=== PATIENT | female | born 1930 | race Caucasian/White ===

== ENCOUNTER 2020-02-02 08:30 | Inpatient (IN) ==
[2020-02-02] MEDS ORDERED: SODIUM CHLORIDE 0.9% 1000ML 1,000 ML IV ONE (08:36)
[2020-02-02] MEDS ORDERED: RAPID SEQUENCE INDUCTION BAG ONE (08:40)
[2020-02-02] MEDS ORDERED: STAT IV Infusion **Titration per Protocol STA ×2 (08:46→23:30)
[2020-02-02] MEDS: fentaNYL DRIP 1,250 MCG/250 ML BAG IV SCH (09:01)
[2020-02-02 09:05] LABS: Hematocrit (blood only) 38.2 % (37-47); Hemoglobin 12.6 g/dL (12.0-16.0); Mean Corpuscular Hemoglobin 32.5 pg (25-34); Mean Corpuscular Volume 98.5 fL (80-100); RDW Coefficient of Variation 15.6 % (11.5-14.5); RDW Standard Deviation 55.4 fL (36.4-46.3); Red Blood Count 3.88 M/uL (4.2-5.4); White Blood Count 40.25 K/uL (4.8-10.8)
--- NOTE | 2020-02-02 09:17 | XRay Report ---
XR chest 1V portable CLINICAL HISTORY: Altered mental status. COMPARISON STUDY: No previous studies for comparison. FINDINGS: The tip of the endotracheal tube is within the right mainstem bronchus. The tube could be w ithdrawn 4 cm. Visualized portions of the stomach are distended. There is mild elevation of the left hemidiaphragm. Patient is rotated. There is moderate enlargement of the cardiac silhouette. Mild left basilar and right apical opacity is present. There is no evidence for overt pulmonary edema. No pneu mothorax is identified. Old left-sided rib fractures are noted. IMPRESSION: 1. Tip of endotracheal tube within the right mainstem bronchus. The tube could be withdrawn 4 cm. 2. Low lung volumes. Left basilar and right apical opacity which may be infectious. Radiographic foll ow up is recommended. 3. Moderate enlargement of the cardiac silhouette. No evidence for pulmonary edema. 4. Distended stomach. ACT 112: Negative or not required by law. Electronically signed by: Nicolas Gonzalez M.D. 02/02/2020 9:15 AM
[2020-02-02 09:19] LABS: Albumin Level 2.4 gm/dl (3.4-5.0); Bilirubin Direct 0.3 mg/dl (0-0.2); Calcium 8.6 mg/dl (8.5-10.1); Creatinine Clr Calc Pharmacy 12.2 ml/min; Est GFR (African American) 15.6; Est GFR (Non-African American) 13.5; Magnesium 3.1 mg/dl (1.8-2.4); Potassium 3.8 mmol/L (3.5-5.1)
--- NOTE | 2020-02-02 09:21 | CT Scan Report ---
CT head/brain wo con CLINICAL HISTORY: 89 years-old Female presenting with ams on eliquis. TECHNIQUE: Multidetector CT imaging of the head was performed without the use of intravenous contrast . IV contrast: None. One or more dose lowering techniques were used consistent with the principles of ALARA (as low as reasonably achievable), including automatic exposure control, mA or kV adjustment t o individual patient size, and/or use of iterative reconstruction. COMPARISON: None. CT DOSE (mGy.cm): The estimated cumulative dose is 1166.49. FINDINGS: Attendant Arcade topogram: Endotracheal tube terminates in the midthoracic trachea. Lung volumes with interstiti al prominence. Internal fixation of the left humerus. Proportional ventricular and sulcal prominence, likely age-related parenchymal volume loss. No hemorr wilmar. Periventricular and subcortical white matter hypoattenuation, nonspecific but likely indicative of chronic small vessel ischemic change. No acute territorial infarct. No mass effect or midline lanette ft. No extra-axial fluid collection. Paranasal sinuses and mastoid air cells clear. Calvarium intact. IMPRESSION: 1. Chronic small vessel ischemic change. No acute intracranial abnormality. ACT 112: Negative or not required by law. Electronically signed by: Blair Mike M.D. 02/02/2020 9:20 AM
[2020-02-02 09:22] LABS: Bilirubin,Total 0.6 mg/dl (0.2-1); Total Protein 6.8 gm/dl (6.4-8.2); Troponin I 0.033 ng/ml (0-0.045)
[2020-02-02 09:27] LABS: INR 1.3 (0.9-1.1); Partial Thromboplastin Ratio 1.3; Partial Thromboplastin Time 35.3 Seconds (21.0-31.0); Prothrombin Time 13.2 Seconds (9.0-12.0)
[2020-02-02 09:28] LABS: Mean Platelet Volume 10.6 fL (7.4-10.4); Platelet Count 150 K/uL (130-400)
--- NOTE | 2020-02-02 09:28 | CT Scan Report ---
CT OF THE CERVICAL SPINE WITHOUT CONTRAST CLINICAL HISTORY: Altered mental status. COMPARISON STUDY: No previous studies for comparison. TECHNIQUE: Helical axial images of the cervical spine were obtained without IV contrast. Sagittal a nd coronal reconstructions were viewed. Automated exposure control was utilized for the study. A do se lowering technique was utilized adhering to the principles of ALARA. FINDINGS: Endotracheal tube is in place. A small amount of fluid within the bilateral mastoid air ludivina ls is noted. Subpleural groundglass opacity and reticulation is noted within the lung apices. This fa vors interstitial lung disease. There may be mild superimposed pulmonary edema. Kyphotic positioning is noted. Is no acute cervical spine fracture. Facet joints are intact. There is severe multilevel fa cet arthrosis. There is moderate multilevel disc space narrowing and osteophytosis. There is no preve rtebral edema. Craniocervical junction is intact. There is an old mild compression fracture of the banegas perior endplate of T2. IMPRESSION: 1. No acute fracture or subluxation within the cervical spine. 2. Old mild T2 compression fracture. 3. Interstitial thickening within the lung apices which favors interstitial lung disease. There may b e mild superimposed pulmonary edema. 4. Severe multilevel facet arthrosis. 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 ACT 112: Negative or not required by law. Electronically signed by: Nicolas Gonzalez M.D. 02/02/2020 9:27 AM
[2020-02-02 09:29] LABS: Basophils # (auto) 0.04 K/uL (0-0.2); Basophils % (auto) 0.1 %; Eosinophils # (auto) 0.01 K/uL (0-0.5); Immature Granulocytes # (auto) 0.86 K/uL (0.00-0.02); Immature Granulocytes % (auto) 2.1 %; Lymphocytes # (auto) 1.81 K/uL (1.2-3.4); Lymphocytes % (auto) 4.5 %; Monocytes # (auto) 2.58 K/uL (0.11-0.59); Monocytes % (auto) 6.4 %; Neutrophils # (auto) 34.95 K/uL (1.4-6.5); Neutrophils % (auto) 86.9 %; Platelet Estimate Normal (Normal); RBC Morphology Unremarkable
[2020-02-02 09:33] LABS: Base Excess VBG -3.7 mEq/L; HCO3 VBG 24 mmol/L; Oxygen Saturation VBG < 60.0 %; PCO2 VBG 58 mmHg (38-50); PO2 VBG 40 mmHg; pH VBG 7.24 (7.36-7.41)
[2020-02-02] MEDS ORDERED: PIPERACILLIN/TAZOBACTAM 4.5 GM/120 ML BAG IV ONE (09:37)
[2020-02-02] MEDS ORDERED: PIPERACILL/TAZOBAC CONSULT ACTIVE PRN (09:37)
[2020-02-02] MEDS ORDERED: SODIUM CHLORIDE 0.9% 1000ML 1,000 ML IV SCH ×2 (09:45→11:52)
--- NOTE | 2020-02-02 09:47 | Emergency Department Note ---
History of Present Illness General Chief complaint: Unresponsive Stated complaint: Unresponsive Time Seen by Provider: 02/02/20 08:34 History of Present Illness Provider complaint: Altered mental status Onset (ago): hour(s) 1 89-year-old female presents emergency department with altered mental status. Patient is unable to give history at this time. Per EMS, the patient was sitting in her chair last night when the family noticed that she was biting down on her tongue. Patient is on Eliquis and there is significant amount of bleeding coming for the patient's tongue. The bleeding eventually stopped and they let the patient sleep in her chair as she usually does overnight. In the morning the family tried to wake up the patient and she was unresponsive. They called 911. 911 paramedics arrived and the patient was hypotensive, altered mental status, and hypoxic at 86% on room air. Home Medications Home Medications Medication Instructions Recorded Confirmed Type Stool Softener 4 cap PO QPM 02/02/20 02/02/20 History amiodarone [Pacerone] 200 mg PO QAM 02/02/20 02/02/20 History apixaban [Eliquis] 5 mg PO BID 02/02/20 02/02/20 History aspirin [Aspirin Low Dose] 81 mg PO QAM 02/02/20 02/02/20 History gabapentin 300 mg PO TID 02/02/20 02/02/20 History hydrochlorothiazide 25 mg PO QAM 02/02/20 02/02/20 History qluzdaop-pqq-OB-lycopen-lutein 1 tab PO QAM 02/02/20 02/02/20 History [Centrum Silver] Allergies Allergy/AdvReac Type Severity Reaction Status Date / Time No Known Allergies Allergy Unverified 02/02/20 09:57 Past Med/Surg History Medical History Acute encephalopathy Acute hypoxemic respiratory failure Atrial flutter CHF (congestive heart failure) Complicated UTI (urinary tract infection) Diarrhea Lactic acidosis Leukocytosis S/P admission to ICU (intensive care unit) Social History Communication Ability: Unable marital status: / Feels Safe at Home: Yes Smoking Status: Never smoker Review of Systems Unobtainable due to cognitive status Physical Exam Vital Signs Vital Signs - 24 hr 02/02/20 08:39 02/02/20 09:04 02/02/20 09:25 Temperature 36.2 C L Temperature Source Rectal Pulse Rate 168 H 88 Pulse Rate [Forehead] 94 H Respiratory Rate 20 25 H 14 Blood Pressure 84/59 L Blood Pressure [Left Arm] 94/53 L Blood Pressure Mean 67 Blood Pressure Mean [Left Arm] 66 Pulse Oximetry 100 100 98 Oxygen Delivery Method Non-rebreather Mechanical Vent Oxygen Flow Rate 15 Fraction of Inspired Oxygen 60 SaO2/FiO2 Ratio Sepsis Recent Fever Within 48 Hours No Sepsis New/Unexplained Change in Mental Status No Sepsis Action Taken by Nursing No Action Required End Tidal CO2 (18-54mmHg) 02/02/20 09:37 Temperature Temperature Source Pulse Rate Pulse Rate [Forehead] 85 Respiratory Rate 14 Blood Pressure Blood Pressure [Left Arm] 82/42 L Blood Pressure Mean Blood Pressure Mean [Left Arm] 55 Pulse Oximetry 99 Oxygen Delivery Method Mechanical Vent Oxygen Flow Rate Fraction of Inspired Oxygen 60 SaO2/FiO2 Ratio 165 Sepsis Recent Fever Within 48 Hours Sepsis New/Unexplained Change in Mental Status Sepsis Action Taken by Nursing End Tidal CO2 (18-54mmHg) 35 Physical Exam General: Severely distressed. Severely kyphotic. Mouth/Throat: Lacerated left tongue with dried blood and some mild oozing. EYES: Conjunctivae and EOM are normal. Pupils are equal, round, and reactive to light. Right eye exhibits no discharge. Left eye exhibits no discharge. No scleral icterus. CV: Normal rate, irregular rhythm, normal heart sounds and intact distal pulses. There is no peripheral edema. Palpable radial pulses bue. PULM/CHEST: Rhonchi bilaterally. -Chest Wall: She exhibits no tenderness. ABD: The abdomen is soft. NEURO: GCS eye subscore is 2. GCS verbal subscore is 1. GCS motor subscore is 1. Cerebellar tests wnl. Procedures Intubation Time out performed: Yes sedative: Etomidate Mg Given: 20 paralytic: Rocuronium Mg Given: 70 Laryngoscope: other ([place] scope) ET Tube Size: 7 ET Tube Uncuffed: Yes Tube Secured Location: teeth Tube Placement Confirmation: visualized tube passing through cords, equal breath sounds bilaterally (Initially there were right-sided breath sounds but no left- sided breath sounds. The ET tube was pulled back approximately 1 cm and breath sounds were heard bilaterally.), no breath sounds over epigastrium and confirmation by capnometry Patient Tolerated Procedure: well and no complications Intubation Complications: difficult intubation Additional Comments: Patient was extremely difficult intubation due to her severe kyphosis, poor dentition, tongue laceration, and bleeding in the airway. Cords were visualized with glide scope immediately however it took several attempts to place to place the ET tube through the cords. ET tube was placed successfully after the patient was re-bagged with Ambu bag. Post intubation chest x-ray showed that the ET tube was in the right mainstem bronchus and the ET tube was retracted. Course Course 0840: The patient was evaluated in room A1. A complete history and physical exam was performed. On arrival to the emergency department, the patient has extremely low GCS score. She does have what appears to be a severe laceration of her tongue from a tongue bite. There is high concern that the patient might of had a seizure. Given that the patient is on Eliquis there was also high concern for ICH. Family was brought to bedside. They report that there is no history of fall. They state that the patient always sleeps in a chair. Bashir mcgowan at bedside who is a family member in the area with her states that the patient does not have a DNR status and she does not have any end-of-life goals to her knowledge. Given this, both I and the daughter assumed that the patient is a full code. Given her extremely low GCS score, the patient will be intubated for airway protection. Patient was intubated. Patient was given fluid bolus and after intubation her map was greater than 65 and then taken to CAT scan to rule out ICH. 0947: CT of the head viewed by me shows no ICH. Daughter now states that the patient traveled here from [place] in early December. 1001: Patient's blood pressure improved transiently with IV fluids but she anju me hypotensive again. Repeat normal saline bolus ordered. Labs show leukocytosis of 40.25 and lactic acid of 4.9. Again given the patient's history of tongue bite and altered mental status, seizure is very high on the differential. The lactic acidemia and leukocytosis could be due to seizure. P atient's creatinine is 2.95. The patient's urine also appears extremely bloody. The leukocytosis and lactic acidemia could also be due to infection instead of seizure. Discussed with hospitalist team Fay duran PA-C she agrees to admission. Patient will be given Zosyn in the emergency department. Discussed with Dr. Trejo ICU who accepts the patient and states to start the patient on fosphenytoin given possible seizure diagnosis. Prolactin is also mildly elevated again contributing to possible seizure. Intensvist also asked that the patient be tested for rapid in-house COVID. Hospitalist team was made aware of this. Orders were placed by me. Administered Medications Fentanyl Citrate (Fentanyl Drip) 1,250 mcg in 250 mls @ 5 mls/hr IV .Q24H TEODORO; Protocol Stop: 02/16/20 08:59 Last Admin: 02/02/20 09:01 Dose: 25 mcg/hr, 5 mls/hr Documented by: [id number] Cosigned by: [id number] Sodium Chloride (Nss 1000ml) 1,000 mls @ 125 mls/hr IV .Q8H TEODORO Stop: 03/03/20 09:44 Last Admin: 02/02/20 09:46 Dose: 125 mls/hr Documented by: [id number] Vancomycin HCl 1,500 mg/ (Sodium Chloride) 530 mls @ 200 mls/hr IV NOW ONE Stop: 02/02/20 14:38 Last Admin: 02/02/20 12:17 Dose: 200 mls/hr Documented by: [id number] Norepinephrine Bitartrate 4 mg (/ Dextrose) 254 mls @ 13.545 mls/hr IV .[id number] STA; Protocol Stop: 02/03/20 06:24 Last Admin: 02/02/20 11:50 Dose: 0.2 mcg/kg/min, 54.2 mls/hr Documented by: [id number] Cosigned by: [id number] Discontinued Medications Sodium Chloride (Nss 1000ml) 1,000 mls @ 999 mls/hr IV .Q1H1M ONE Stop: 02/02/20 09:36 Last Infusion: 02/02/20 09:45 Dose: 0 mls/hr Documented by: [id number] Admin: 02/02/20 08:30 Dose: 999 mls/hr Documented by: [id number] Piperacillin Sod/Tazobactam Sod (Zosyn) 4.5 gm in 120 mls @ 240 mls/hr IV NOW ONE Stop: 02/02/20 10:06 Last Admin: 02/02/20 09:53 Dose: 30 mls/hr Documented by: [id number] Fosphenytoin Sodium 1,000 mgpe (/ Sodium Chloride) 70 mls @ 420 mls/hr IV NOW STA Stop: 02/02/20 10:07 Last Admin: 02/02/20 10:54 Dose: 25 mls/hr Documented by: [id number] Sodium Chloride (Nss 1000ml) 1,000 mls @ 125 mls/hr IV .Q8H TEODORO Stop: 03/03/20 11:51 Last Admin: 02/02/20 13:05 Dose: Not Given Documented by: Doxycycline Hyclate 100 mg/ (Dextrose) 110 mls @ 55 mls/hr IV Q12H TEODORO Stop: 02/09/20 11:59 Last Admin: 02/02/20 12:17 Dose: Not Given Documented by: [id number] Miscellaneous () Confirm Administered Dose 1 ea .ROUTE .STK-MED ONE Stop: 02/02/20 08:41 Last Admin: 02/02/20 09:53 Dose: 1 ea Documented by: [id number] Sodium Bicarbonate (Sodium Bicarbonate 8.4%) Confirm Administered Dose 100 meq .ROUTE .STK-MED ONE Stop: 02/02/20 11:42 Last Admin: 02/02/20 12:13 Dose: 100 meq Documented by: [id number] Critical Care Time Critical Care Time: Yes Total Critical Care Time: 90 I have personally spent greater than 90 minutes of critical care time in the direct management of this patient. This includes bedside care, interpretation of diagnostic studies, and testing, discussion with consultants, patient, and family members, and other required patient management activities. This 90 minutes is in excess of all separately billable procedures. Medical Decision Making Laboratory Data Result diagrams: 02/02/20 08:51 02/02/20 08:51 Lab Results 02/02/20 02/02/20 02/02/20 Range/Units 08:51 08:51 08:51 WBC 40.25 H* (4.8-10.8) K/uL RBC 3.88 L (4.2-5.4) M/uL Hgb 12.6 (12.0-16.0) g/dL Hct 38.2 (37-47) % MCV 98.5 (80-100) fL MCH 32.5 (25-34) pg MCHC 33.0 (32-36) g/dL RDW Std Deviation 55.4 H (36.4-46.3) fL RDW Coeff of Karyna 15.6 H (11.5-14.5) % Plt Count 150 (130-400) K/uL MPV 10.6 H (7.4-10.4) fL Immature Gran % (Auto) 2.1 % Neut % (Auto) 86.9 % Lymph % (Auto) 4.5 % [place] % (Auto) 6.4 % Eos % (Auto) 0.0 % Baso % (Auto) 0.1 % Immature Gran # (Auto) 0.86 H (0.00-0.02) K/uL Neut # (Auto) 34.95 H (1.4-6.5) K/uL Lymph # (Auto) 1.81 (1.2-3.4) K/uL [place] # (Auto) 2.58 H (0.11-0.59) K/uL Eos # (Auto) 0.01 (0-0.5) K/uL Baso # (Auto) 0.04 (0-0.2) K/uL Platelet Estimate Normal (Normal) RBC Morphology Unremarkable PT (9.0-12.0) Seconds INR (0.9-1.1) APTT (21.0-31.0) Seconds PTT Ratio VBG pH VBG pCO2 VBG pO2 VBG HCO3 VBG O2 Saturation VBG Base Excess Barometric Pressure Sodium 138 (136-145) mmol/L Potassium 3.8 (3.5-5.1) mmol/L Chloride 103 (98-107) mmol/L Carbon Dioxide 27 (21-32) mmol/L Anion Gap 8.0 (3-11) BUN 44 H (7-18) mg/dl Creatinine 2.95 H (0.6-1.2) mg/dl Est Cr Clr Drug Dosing 12.2 ml/min Est GFR ( Amer) 15.6 Est GFR (Non-Af Amer) 13.5 BUN/Creatinine Ratio 15.0 (10-20) Glucose 112 H (70-99) mg/dl Lactate (0.4-2.0) mmol/L Calcium 8.6 (8.5-10.1) mg/dl Magnesium 3.1 H (1.8-2.4) mg/dl Total Bilirubin 0.6 (0.2-1) mg/dl Direct Bilirubin 0.3 H (0-0.2) mg/dl AST 43 H (15-37) U/L ALT 30 (12-78) U/L Alkaline Phosphatase 137 H (45-117) U/L Ammonia (11-32) umol/L Total Creatine Kinase 360 H (26-192) U/L Troponin I 0.033 (0-0.045) ng/ml NT-Pro-B Natriuret Pep 3585 H (0-1800) pg/ml Total Protein 6.8 (6.4-8.2) gm/dl Albumin 2.4 L (3.4-5.0) gm/dl Lipase 19 L (73-393) U/L Procalcitonin (0-0.5) ng/ml Prolactin ng/ml Urine Color Urine Appearance (Clear) Urine pH (4.5-7.5) Ur Specific [place] (1.000-1.030) Urine Protein (Negative) Urine Glucose (UA) (Negative) Urine Ketones (Negative) Urine Blood (Negative) Urine Nitrite (Negative) Urine Bilirubin (Negative) Urine Urobilinogen (Negative) Ur Leukocyte Esterase (Negative) Urine WBC (Auto) (0-5) /hpf Urine RBC (Auto) (0-4) /hpf U Hyaline Cast (Auto) (0-5) /lpf U Epithel Cells (Auto) (0-5) /lpf Urine Bacteria (Auto) (Negative) Urine RBC (0-4) /hpf Urine WBC (0-5) /hpf Ur Epithelial Cells (0-5) /lpf Urine Bacteria (Negative) Blood Type A Positive Antibody Screen NEGATIVE 02/02/20 02/02/20 02/02/20 Range/Units 08:51 08:51 08:51 WBC (4.8-10.8) K/uL RBC (4.2-5.4) M/uL Hgb (12.0-16.0) g/dL Hct (37-47) % MCV (80-100) fL MCH (25-34) pg MCHC (32-36) g/dL RDW Std Deviation (36.4-46.3) fL RDW Coeff of Karyna (11.5-14.5) % Plt Count (130-400) K/uL MPV (7.4-10.4) fL Immature Gran % (Auto) % Neut % (Auto) % Lymph % (Auto) % [place] % (Auto) % Eos % (Auto) % Baso % (Auto) % Immature Gran # (Auto) (0.00-0.02) K/uL Neut # (Auto) (1.4-6.5) K/uL Lymph # (Auto) (1.2-3.4) K/uL [place] # (Auto) (0.11-0.59) K/uL Eos # (Auto) (0-0.5) K/uL Baso # (Auto) (0-0.2) K/uL Platelet Estimate (Normal) RBC Morphology PT 13.2 H (9.0-12.0) Seconds INR 1.3 H (0.9-1.1) APTT 35.3 H (21.0-31.0) Seconds PTT Ratio 1.3 VBG pH Cancelled VBG pCO2 Cancelled VBG pO2 Cancelled VBG HCO3 Cancelled VBG O2 Saturation Cancelled VBG Base Excess Cancelled Barometric Pressure Cancelled Sodium (136-145) mmol/L Potassium (3.5-5.1) mmol/L Chloride (98-107) mmol/L Carbon Dioxide (21-32) mmol/L Anion Gap (3-11) BUN (7-18) mg/dl Creatinine (0.6-1.2) mg/dl Est Cr Clr Drug Dosing ml/min Est GFR ( Amer) Est GFR (Non-Af Amer) BUN/Creatinine Ratio (10-20) Glucose (70-99) mg/dl Lactate (0.4-2.0) mmol/L Calcium (8.5-10.1) mg/dl Magnesium (1.8-2.4) mg/dl Total Bilirubin (0.2-1) mg/dl Direct Bilirubin (0-0.2) mg/dl AST (15-37) U/L ALT (12-78) U/L Alkaline Phosphatase (45-117) U/L Ammonia 30.3 (11-32) umol/L Total Creatine Kinase (26-192) U/L Troponin I (0-0.045) ng/ml NT-Pro-B Natriuret Pep (0-1800) pg/ml Total Protein (6.4-8.2) gm/dl Albumin (3.4-5.0) gm/dl Lipase (73-393) U/L Procalcitonin (0-0.5) ng/ml Prolactin ng/ml Urine Color Urine Appearance (Clear) Urine pH (4.5-7.5) Ur Specific [place] (1.000-1.030) Urine Protein (Negative) Urine Glucose (UA) (Negative) Urine Ketones (Negative) Urine Blood (Negative) Urine Nitrite (Negative) Urine Bilirubin (Negative) Urine Urobilinogen (Negative) Ur Leukocyte Esterase (Negative) Urine WBC (Auto) (0-5) /hpf Urine RBC (Auto) (0-4) /hpf U Hyaline Cast (Auto) (0-5) /lpf U Epithel Cells (Auto) (0-5) /lpf Urine Bacteria (Auto) (Negative) Urine RBC (0-4) /hpf Urine WBC (0-5) /hpf Ur Epithelial Cells (0-5) /lpf Urine Bacteria (Negative) Blood Type Antibody Screen 02/02/20 02/02/20 02/02/20 Range/Units 08:51 08:51 08:51 WBC (4.8-10.8) K/uL RBC (4.2-5.4) M/uL Hgb (12.0-16.0) g/dL Hct (37-47) % MCV (80-100) fL MCH (25-34) pg MCHC (32-36) g/dL RDW Std Deviation (36.4-46.3) fL RDW Coeff of Karyna (11.5-14.5) % Plt Count (130-400) K/uL MPV (7.4-10.4) fL Immature Gran % (Auto) % Neut % (Auto) % Lymph % (Auto) % [place] % (Auto) % Eos % (Auto) % Baso % (Auto) % Immature Gran # (Auto) (0.00-0.02) K/uL Neut # (Auto) (1.4-6.5) K/uL Lymph # (Auto) (1.2-3.4) K/uL [place] # (Auto) (0.11-0.59) K/uL Eos # (Auto) (0-0.5) K/uL Baso # (Auto) (0-0.2) K/uL Platelet Estimate (Normal) RBC Morphology PT (9.0-12.0) Seconds INR (0.9-1.1) APTT (21.0-31.0) Seconds PTT Ratio VBG pH VBG pCO2 VBG pO2 VBG HCO3 VBG O2 Saturation VBG Base Excess Barometric Pressure Sodium (136-145) mmol/L Potassium (3.5-5.1) mmol/L Chloride (98-107) mmol/L Carbon Dioxide (21-32) mmol/L Anion Gap (3-11) BUN (7-18) mg/dl Creatinine (0.6-1.2) mg/dl Est Cr Clr Drug Dosing ml/min Est GFR ( Amer) Est GFR (Non-Af Amer) BUN/Creatinine Ratio (10-20) Glucose (70-99) mg/dl Lactate 4.9 H* (0.4-2.0) mmol/L Calcium (8.5-10.1) mg/dl Magnesium (1.8-2.4) mg/dl Total Bilirubin (0.2-1) mg/dl Direct Bilirubin (0-0.2) mg/dl AST (15-37) U/L ALT (12-78) U/L Alkaline Phosphatase (45-117) U/L Ammonia (11-32) umol/L Total Creatine Kinase (26-192) U/L Troponin I (0-0.045) ng/ml NT-Pro-B Natriuret Pep (0-1800) pg/ml Total Protein (6.4-8.2) gm/dl Albumin (3.4-5.0) gm/dl Lipase (73-393) U/L Procalcitonin > 200.00 H (0-0.5) ng/ml Prolactin 21.91 ng/ml Urine Color Urine Appearance (Clear) Urine pH (4.5-7.5) Ur Specific [place] (1.000-1.030) Urine Protein (Negative) Urine Glucose (UA) (Negative) Urine Ketones (Negative) Urine Blood (Negative) Urine Nitrite (Negative) Urine Bilirubin (Negative) Urine Urobilinogen (Negative) Ur Leukocyte Esterase (Negative) Urine WBC (Auto) (0-5) /hpf Urine RBC (Auto) (0-4) /hpf U Hyaline Cast (Auto) (0-5) /lpf U Epithel Cells (Auto) (0-5) /lpf Urine Bacteria (Auto) (Negative) Urine RBC (0-4) /hpf Urine WBC (0-5) /hpf Ur Epithelial Cells (0-5) /lpf Urine Bacteria (Negative) Blood Type Antibody Screen 02/02/20 02/02/20 Range/Units 09:23 09:30 WBC (4.8-10.8) K/uL RBC (4.2-5.4) M/uL Hgb (12.0-16.0) g/dL Hct (37-47) % MCV (80-100) fL MCH (25-34) pg MCHC (32-36) g/dL RDW Std Deviation (36.4-46.3) fL RDW Coeff of Karyna (11.5-14.5) % Plt Count (130-400) K/uL MPV (7.4-10.4) fL Immature Gran % (Auto) % Neut % (Auto) % Lymph % (Auto) % [place] % (Auto) % Eos % (Auto) % Baso % (Auto) % Immature Gran # (Auto) (0.00-0.02) K/uL Neut # (Auto) (1.4-6.5) K/uL Lymph # (Auto) (1.2-3.4) K/uL [place] # (Auto) (0.11-0.59) K/uL Eos # (Auto) (0-0.5) K/uL Baso # (Auto) (0-0.2) K/uL Platelet Estimate (Normal) RBC Morphology PT (9.0-12.0) Seconds INR (0.9-1.1) APTT (21.0-31.0) Seconds PTT Ratio VBG pH 7.24 L VBG pCO2 58 H VBG pO2 40 VBG HCO3 24 VBG O2 Saturation < 60.0 VBG Base Excess -3.7 Barometric Pressure 724.0 Sodium (136-145) mmol/L Potassium (3.5-5.1) mmol/L Chloride (98-107) mmol/L Carbon Dioxide (21-32) mmol/L Anion Gap (3-11) BUN (7-18) mg/dl Creatinine (0.6-1.2) mg/dl Est Cr Clr Drug Dosing ml/min Est GFR ( Amer) Est GFR (Non-Af Amer) BUN/Creatinine Ratio (10-20) Glucose (70-99) mg/dl Lactate (0.4-2.0) mmol/L Calcium (8.5-10.1) mg/dl Magnesium (1.8-2.4) mg/dl Total Bilirubin (0.2-1) mg/dl Direct Bilirubin (0-0.2) mg/dl AST (15-37) U/L ALT (12-78) U/L Alkaline Phosphatase (45-117) U/L Ammonia (11-32) umol/L Total Creatine Kinase (26-192) U/L Troponin I (0-0.045) ng/ml NT-Pro-B Natriuret Pep (0-1800) pg/ml Total Protein (6.4-8.2) gm/dl Albumin (3.4-5.0) gm/dl Lipase (73-393) U/L Procalcitonin (0-0.5) ng/ml Prolactin ng/ml Urine Color Brown Urine Appearance Turbid A (Clear) Urine pH 8.0 H (4.5-7.5) Ur Specific [place] 1.020 (1.000-1.030) Urine Protein 2+ H (Negative) Urine Glucose (UA) Negative (Negative) Urine Ketones Negative (Negative) Urine Blood 3+ H (Negative) Urine Nitrite Negative (Negative) Urine Bilirubin Negative (Negative) Urine Urobilinogen Negative (Negative) Ur Leukocyte Esterase 1+ H (Negative) Urine WBC (Auto) >30 H (0-5) /hpf Urine RBC (Auto) >30 H (0-4) /hpf U Hyaline Cast (Auto) 0 (0-5) /lpf U Epithel Cells (Auto) 0-5 (0-5) /lpf Urine Bacteria (Auto) 3+ H (Negative) Urine RBC >30 H (0-4) /hpf Urine WBC >30 H (0-5) /hpf Ur Epithelial Cells 0-5 (0-5) /lpf Urine Bacteria 3+ H (Negative) Blood Type Antibody Screen Prescription Drug Monitoring Prescription Drug Findings: Junctional rhythm with a rate of 89. QRS 86. QTc 576. There is diffuse artifact at baseline. [facility] Narrative 0840: The patient was evaluated in room A1. A complete history and physical exam was performed. On arrival to the emergency department, the patient has extre [place] low GCS score. She does have what appears to be a severe laceration of her tongue from a tongue bite. There is high concern that the patient might of had a seizure. Given that the patient is on Eliquis there was also high concern for ICH. Family was brought to bedside. They report that there is no history of fall. They state that the patient always sleeps in a chair. Daughter at [facility] who is a family member in the area with her states that the patient does not have a DNR status and she does not have any end-of-life goals to her knowledge. Given this, both I and the daughter assumed that the patient is a full code. Given her extremely low GCS score, the patient will be intubated for airway protection. Patient was intubated. Patient was given fluid bolus and after intubation her map was greater than 65 and then taken to CAT scan to rule out ICH. 0947: CT of the head viewed by me shows no ICH. Daughter now states that the patient traveled here from [place] in early December. 1001:Patient's blood pressure improved transiently with IV fluids but she became hypotensive again. Repeat normal saline bolus ordered. Labs show leukocytosis of 40.25 and lactic acid of 4.9. Again given the patient's history of tongue bite and altered mental status, seizure is very high on the differential. The lactic acidemia and leukocytosis could be due to seizure. Patient's creatinine is 2.95. The patient's urine also appears extremely bloody. The leukocytosis and lactic acidemia could also be due to infection instead of seizure. Discussed with hospitalist team Fay duran PA-C she agrees to admission. Patient will be given Zosyn in the emergency department. Discussed with Dr. Trejo ICU who accepts the patient and states to start the patient on fosphenytoin given possible seizure diagnosis. Prolactin is also mildly elevated again contributing to possible seizure. Intensvist also asked that the patient be tested for rapid in-house COVID. Hospitalist team was made aware of this. Orders were placed by me. Impression & Plan Altered mental status, Acute hypoxemic respiratory failure, Acute encephalopathy Discharge Plan Visit Data Chief Complaint: Unresponsive Stated Complaint: Unresponsive ED Provider: Blake Mc Discharge Problem: Altered mental status, Acute hypoxemic respiratory failure, Acute enceph alopathy Patient Disposition: Admitted As Inpatient Discharge Instructions Interventions: ED Discharge Assessment Last Done: 02/02/20 10:55 Discharge Problem: Altered mental status Qualifiers: Altered mental status type: unspecified Qualified Code(s): R41.82 - Altered mental status, unspecified
[2020-02-02] MEDS ORDERED: FOSPHENYTOIN 1,000 MGPE in SODIUM CHLORIDE 0.9% 50 ML IV STA (09:58)
[2020-02-02 10:08] LABS: Appearance Urine Turbid (Clear); Bilirubin Urine Negative (Negative); Blood Urine 3+ (Negative); Color Urine Brown; Glucose Urine UA Negative (Negative); Ketones Urine Negative (Negative); Leukocyte Esterase Urine 1+ (Negative); Nitrite Urine Negative (Negative); Urobilinogen Urine Negative (Negative)
[2020-02-02 10:12] LABS: Cast Urine Automated 0 /lpf (0-5); Epithelial Cell Urine Auto 0-5 /lpf (0-5); Protein Urine 2+ (Negative); RBC Urine Automated >30 /hpf (0-4); Sulfosalicylic Acid Urine Positive (Negative); WBC Urine Automated >30 /hpf (0-5)
[2020-02-02 10:13] LABS: Bacteria Urine Automated 3+ (Negative)
[2020-02-02 10:14] LABS: Bacteria Urine 3+ (Negative); Epithelial Cell Urine 0-5 /lpf (0-5); RBC Urine >30 /hpf (0-4); WBC Urine >30 /hpf (0-5)
--- NOTE | 2020-02-02 10:18 | Critical Care Consultation ---
Date of Consultation February 02, 2020 Assessment & Plan (1) S/P admission to ICU (intensive care unit): Patient is currently intubated. She was intubated with etomidate and rocuronium. Continue lung protective ventilation strategy. We tested for COVID-19 given her symptoms and recent travel history. She received a dose of Zosyn in the ED. I will start her on vancomycin, ceftriaxone and Flagyl. If she spikes a fever, we will have to evaluate for the possibility of meningitis. She will likely need an EEG once COVID-19 is ruled out. She was loaded with fosphenytoin in the emergency department. Continue seizure precautions. She also has evidence of a urinary tract infection. It is very possible that her sepsis and encephalopathy are related to her urinary tract infection. Continue fluid resuscitation. Repeat lactic acid. Check troponins. Check EKG. She is on Eliquis at home for atrial flutter. We will start her on VTE prophylaxis with heparin 3 times daily for the time being. GI prophylaxis with famotidine. CRITICAL CARE TIME - I have personally spent 50 minutes of critical care time in the direct management of this patient. This is a life/limb threatening event. This includes time spent evaluating patient, direct bedside care, chart review, placing orders, interpretation of diagnostic studies, discussion with consultants, patient, and family members, as well as other required patient management activities. This time is exclusive of all separately billable procedures, and teaching time and separate from and in addition to any other critical care service time. (2) Acute hypoxemic respiratory failure: (3) Acute encephalopathy: (4) Diarrhea: (5) Leukocytosis: (6) Atrial flutter: (7) Lactic acidosis: (8) CHF (congestive heart failure): (9) Complicated UTI (urinary tract infection): History of Present Illness Reason for Consultation: Acute encephalopathy with hypoxemic respiratory failure Requesting Physician: Emergency department physician History of Present Illness 89-year-old female with a past medical history of atrial fibrillation/flutter on Eliquis, heart failure, neuropathy, hypertension who presented to the hospital due to being found unresponsive by her family. Patient unable to give any history due to her medical status. I was able to get a history from the patient's daughter over the phone. Daughter indicates that the patient for the past 2 days has been feeling very fatigued and chilly. She has also been having episodes of diarrhea and constipation. This morning around 730 or 8:00 she was found unresponsive in her room. She recently moved from [place] to [place] to be with her family. In November she had an episode of atrial flutter and had a stay in the hospital. The daughter does not know the details of this. She does note that she is on amiodarone and Eliquis. She is also on a low-dose aspirin. There was a concern for possible head bleed and patient was sent for stat CT head. On the CT head there is no obvious bleed. CT spine was also completed. White count was elevated to 40,000. Patient received a dose of Zosyn in the ER. She was also hypotensive and currently receiving fluids. There was some difficulty with intubation as the patient is kyphotic and there was a tongue laceration noted with bleeding. The daughter does note that she bit her tongue yesterday and they have been trying to put ice on the tongue and that the patient was getting aggravated. She does not have any known seizure disorder. She is receiving a dose of fosphenytoin in the emergency department. VBG 7.24/50 . Given her symptoms and a recent travel history, she has been ruled out for COVID-19. Allergies Allergy/AdvReac Type Severity Reaction Status Date / Time No Known Allergies Allergy Unverified 02/02/20 09:57 Home Medications Home Medications Medication Instructions Recorded Confirmed Type Stool Softener 4 cap PO QPM 02/02/20 02/02/20 History amiodarone [Pacerone] 200 mg PO QAM 02/02/20 02/02/20 History apixaban [Eliquis] 5 mg PO BID 02/02/20 02/02/20 History aspirin [Aspirin Low Dose] 81 mg PO QAM 02/02/20 02/02/20 History gabapentin 300 mg PO TID 02/02/20 02/02/20 History hydrochlorothiazide 25 mg PO QAM 02/02/20 02/02/20 History dhrzgrpy-iiq-MY-lycopen-lutein 1 tab PO QAM 02/02/20 02/02/20 History [Centrum Silver] Patient History Medical History (Updated 02/02/20 @ 10:34 by Sergio Trejo MD) Acute encephalopathy Acute hypoxemic respiratory failure Atrial flutter CHF (congestive heart failure) Complicated UTI (urinary tract infection) Diarrhea Lactic acidosis Leukocytosis S/P admission to ICU (intensive care unit) Social History Feels Safe at Home: Yes Smoking Status: Never smoker Review of Systems Review of Systems: Unobtainable due to endotracheal tube Physical Exam Constitutional: Patient is intubated and currently sedated and paralyzed as she just received rocuronium and etomidate. Endotracheal tube in place. Eyes: PERRL, conjunctivae normal, anicteric sclerae ENMT: external ear and nose normal, oropharynx normal Neck: normal visual inspection Respiratory: Coarse breath sounds Cardiovascular: Irregularly irregular. Edema present. Gastrointestinal (Abdomen): normal bowel sounds, soft, nontender, no hepatosplenomegaly Musculoskeletal: Unable to fully examine due to sedation Skin: no rashes, warm and dry Neurologic: Unable to examine due to sedation Psychiatric: Unable to examine due to sedation Results & Data Results & Data ([facility]) Vital Signs (Past 12 Hours) Vital Signs Temp Pulse Pulse Resp BP BP Pulse Ox 02/02/20 10:03 82 14 77/40 L 100 02/02/20 09:37 85 14 82/42 L 99 02/02/20 09:25 88 14 98 02/02/20 09:04 94 H 25 H 94/53 L 100 02/02/20 08:39 97.2 F L 168 H 20 84/59 L 100 I personally reviewed the patient's laboratory data and chest imaging Coding Level of Care Code Critical Care 1st 30-74 mins Diagnoses S/P admission to ICU (intensive care unit) Acute hypoxemic respiratory failure J96.01 Acute encephalopathy G93.40 Diarrhea R19.7 Leukocytosis D72.829 Atrial flutter I48.92 Lactic acidosis E87.2 CHF (congestive heart failure) I50.9 Complicated UTI (urinary tract infection) N39.0 Time Spent (min) 50
[2020-02-02] MEDS ORDERED: SODIUM CHLORIDE 0.9% INJ 10 ML VIAL IV ONE (11:06)
[2020-02-02] MEDS ORDERED: ETOMIDATE 2 MG/ML 20 ML VIAL IV ONE (11:06)
[2020-02-02] MEDS ORDERED: ROCURONIUM BROMIDE 10 MG/ML 10 ML VIAL IV ONE (11:06)
[2020-02-02] MEDS ORDERED: VANCOMYCIN CONSULT ACTIVE PRN (11:32)
[2020-02-02] MEDS ORDERED: NOREPINEPHRINE (Adult STAT Only) 4 MG in D5W 250 ML IV STA (11:39)
[2020-02-02] MEDS ORDERED: SODIUM BICARB 8.4% INJ 50 MEQ/50 ML SYR ONE (11:41)
[2020-02-02] MEDS ORDERED: ICU PROTOCOL FOR HYPERGLYCEMIA PRN (11:52)
[2020-02-02] MEDS ORDERED: DOXYCYCLINE HYCLATE 100 MG in DEXTROSE 5% 100 ML IV SCH (12:00)
[2020-02-02] MEDS ORDERED: VANCOMYCIN HCL 1,500 MG in SODIUM CHLORIDE 0.9% 500 ML IV ONE (12:00)
[2020-02-02] MEDS ORDERED: [UNRECOGNIZED DRUG - REMARK] SCH (12:01)
--- NOTE | 2020-02-02 12:08 | History & Physical Report ---
Date of Service February 02, 2020 Assessment & Plan (1) Altered mental status: 89 year old female with history of Atrial Flutter, CHF, presenting with unresponsiveness. ACUTE RESPIRATORY FAILURE, ALTERED MENTAL STATUS, POSSIBLY FROM: on mechanical ventilation per Operations And Intelligence Assistant ENCEPHALOPATHY SECONDARY TO SEVERE SEPSIS, POSSIBLE PNEUMONIA, URINARY TRACT INFECTION sepsis protocol blood, urine, sputum culture Covid test pending cover with Vanco, Zosyn R/O SEIZURE Cerebyx given CT head: negative for acute process EEG SEPTIC SHOCK given IV fluids started on Levophed management of sepsis per above ACUTE RENAL FAILURE unknown baseline crea will get records from recent hospitalization in [place] Nephro consulted RESPIRATORY ACIDOSIS, FROM HYPERCAPNEA management per #1 ATRIAL FLUTTER on Amiodarone, Eliquis hold for now in light of acute renal failure HISTORY OF CONGESTIVE HEART FAILURE mentioned in initial outpatient Cardiology Visit will get records from recent hospitalization in [place] currently on the dry side will also obtain echo SACRAL DECUBITUS ULCER, PRESENT ON ADMISSION does not appear infected daily wound care Admission and Anticipated Discharge Date Admission Date: February 02, 2020 History of Present Illness 89 year old female with history of Atrial Flutter on Eliquis, CHF, other problems noted below presenting with unresponsiveness. History obtained from patient's family and outpatient records as patient is intubated. Patient was noted to have diarrhea, associated with some chills the past few days. She was also noted to have tongue bleeding for the past 2 days as per family. This morning she was found unresponsive at around 7 am and was brought to the ER by EMS. She was intubated at the ER, and transferred to ICU. CT head: no acute process COVID test: pending Primary Care Provider: Emiliano Pompa DO Allergies Allergy/AdvReac Type Severity Reaction Status Date / Time No Known Allergies Allergy Unverified 02/02/20 09:57 Home Medications Home Medications Medication Instructions Recorded Confirmed Type Stool Softener 4 cap PO QPM 02/02/20 02/02/20 History amiodarone [Pacerone] 200 mg PO QAM 02/02/20 02/02/20 History apixaban [Eliquis] 5 mg PO BID 02/02/20 02/02/20 History aspirin [Aspirin Low Dose] 81 mg PO QAM 02/02/20 02/02/20 History gabapentin 300 mg PO TID 02/02/20 02/02/20 History hydrochlorothiazide 25 mg PO QAM 02/02/20 02/02/20 History qmkmoqep-lge-UQ-lycopen-lutein 1 tab PO QAM 02/02/20 02/02/20 History [Centrum Silver] Past Med/Surg History Medical History (Updated 02/03/20 @ 09:38 by Sergio Trejo MD) Acute encephalopathy (Acute) Acute hypoxemic respiratory failure (Acute) Atrial flutter CHF (congestive heart failure) Complicated UTI (urinary tract infection) Diarrhea Gram-negative bacteremia Lactic acidosis Leukocytosis S/P admission to ICU (intensive care unit) Septic shock due to urinary tract infection Social History Preferred Language: Czech Communication Ability: Unable marital status: / Current Living Situation: Family Feels Safe at Home: Yes Smoking Status: Never smoker Second Hand Exposure: No ; Hx Alcohol Use: No Hx Substance Use: No Review of Systems Review of Systems: Unobtainable due to cognitive status Physical Exam Physical Exam: General- sedated, intubated, breathing with no effort or access ory muscle use Head- atraumatic Eyes- PERRL, EOMI, anicteric ENT- oropharynx clear Neck- supple, no JVD, no adenopathy, no thyromegaly; carotids +2/2, no bruits appreciated Lungs- (+) mild crackles at the bases, no wheezing Heart- normal rate, irregularly irregular rhythm; no murmurs Abdomen- normal bowel sounds, nondistended, soft, nontender, no masses or hepatosplenomegaly Extremities- trace pretibial edema, no calf tenderness; peripheral pulses intact Back- erythema with small skin tears- sacral are Neuro- sedated, intubated Skin- warm & dry Results & Data Results & Data ([facility]) Vital Signs (Past 12 Hours) Vital Signs Temp Pulse Pulse Resp BP BP Pulse Ox 02/02/20 11:08 79 14 97 02/02/20 10:54 81 14 82/61 L 99 02/02/20 10:27 81 14 80/45 L 100 02/02/20 10:03 82 14 77/40 L 100 02/02/20 09:37 85 14 82/42 L 99 02/02/20 09:25 88 14 98 02/02/20 09:04 94 H 25 H 94/53 L 100 02/02/20 08:39 36.2 C L 168 H 20 84/59 L 100 Laboratory Results Laboratory Results - last 24 hr 02/02/20 02/02/20 02/02/20 08:51 08:51 08:51 WBC 40.25 H* RBC 3.88 L Hgb 12.6 Hct 38.2 MCV 98.5 MCH 32.5 MCHC 33.0 RDW Std Deviation 55.4 H RDW Coeff of Karyna 15.6 H Plt Count 150 MPV 10.6 H Immature Gran % (Auto) 2.1 Neut % (Auto) 86.9 Lymph % (Auto) 4.5 [place] % (Auto) 6.4 Eos % (Auto) 0.0 Baso % (Auto) 0.1 Immature Gran # (Auto) 0.86 H Neut # (Auto) 34.95 H Lymph # (Auto) 1.81 [place] # (Auto) 2.58 H Eos # (Auto) 0.01 Baso # (Auto) 0.04 Platelet Estimate Normal RBC Morphology Unremarkable PT INR APTT PTT Ratio VBG pH VBG pCO2 VBG pO2 VBG HCO3 VBG O2 Saturation VBG Base Excess Barometric Pressure Sodium 138 Potassium 3.8 Chloride 103 Carbon Dioxide 27 Anion Gap 8.0 BUN 44 H Creatinine 2.95 H Est Cr Clr Drug Dosing 12.2 Est GFR ( Amer) 15.6 Est GFR (Non-Af Amer) 13.5 BUN/Creatinine Ratio 15.0 Glucose 112 H Lactate Calcium 8.6 Magnesium 3.1 H Total Bilirubin 0.6 Direct Bilirubin 0.3 H AST 43 H ALT 30 Alkaline Phosphatase 137 H Ammonia Total Creatine Kinase 360 H Troponin I 0.033 NT-Pro-B Natriuret Pep 3585 H Total Protein 6.8 Albumin 2.4 L Lipase 19 L Procalcitonin Prolactin Urine Color Urine Appearance Urine pH Ur Specific [place] Urine Protein Urine Glucose (UA) Urine Ketones Urine Blood Urine Nitrite Urine Bilirubin Urine Urobilinogen Ur Leukocyte Esterase Urine WBC (Auto) Urine RBC (Auto) U Hyaline Cast (Auto) U Epithel Cells (Auto) Urine Bacteria (Auto) Urine RBC Urine WBC Ur Epithelial Cells Urine Bacteria Amiodarone Desmethylamiodarone SARS-CoV-2 RNA (RT-PCR) Blood Type A Positive Antibody Screen NEGATIVE 02/02/20 02/02/20 02/02/20 08:51 08:51 08:51 WBC RBC Hgb Hct MCV MCH MCHC RDW Std Deviation RDW Coeff of Karyna Plt Count MPV Immature Gran % (Auto) Neut % (Auto) Lymph % (Auto) [place] % (Auto) Eos % (Auto) Baso % (Auto) Immature Gran # (Auto) Neut # (Auto) Lymph # (Auto) [place] # (Auto) Eos # (Auto) Baso # (Auto) Platelet Estimate RBC Morphology PT 13.2 H INR 1.3 H APTT 35.3 H PTT Ratio 1.3 VBG pH Cancelled VBG pCO2 Cancelled VBG pO2 Cancelled VBG HCO3 Cancelled VBG O2 Saturation Cancelled VBG Base Excess Cancelled Barometric Pressure Cancelled Sodium Potassium Chloride Carbon Dioxide Anion Gap BUN Creatinine Est Cr Clr Drug Dosing Est GFR ( Amer) Est GFR (Non-Af Amer) BUN/Creatinine Ratio Glucose Lactate Calcium Magnesium Total Bilirubin Direct Bilirubin AST ALT Alkaline Phosphatase Ammonia 30.3 Total Creatine Kinase Troponin I NT-Pro-B Natriuret Pep Total Protein Albumin Lipase Procalcitonin Prolactin Urine Color Urine Appearance Urine pH Ur Specific [place] Urine Protein Urine Glucose (UA) Urine Ketones Urine Blood Urine Nitrite Urine Bilirubin Urine Urobilinogen Ur Leukocyte Esterase Urine WBC (Auto) Urine RBC (Auto) U Hyaline Cast (Auto) U Epithel Cells (Auto) Urine Bacteria (Auto) Urine RBC Urine WBC Ur Epithelial Cells Urine Bacteria Amiodarone Desmethylamiodarone SARS-CoV-2 RNA (RT-PCR) Blood Type Antibody Screen 02/02/20 02/02/20 02/02/20 08:51 08:51 08:51 WBC RBC Hgb Hct MCV MCH MCHC RDW Std Deviation RDW Coeff of Karyna Plt Count MPV Immature Gran % (Auto) Neut % (Auto) Lymph % (Auto) [place] % (Auto) Eos % (Auto) Baso % (Auto) Immature Gran # (Auto) Neut # (Auto) Lymph # (Auto) [place] # (Auto) Eos # (Auto) Baso # (Auto) Platelet Estimate RBC Morphology PT INR APTT PTT Ratio VBG pH VBG pCO2 VBG pO2 VBG HCO3 VBG O2 Saturation VBG Base Excess Barometric Pressure Sodium Potassium Chloride Carbon Dioxide Anion Gap BUN Creatinine Est Cr Clr Drug Dosing Est GFR ( Amer) Est GFR (Non-Af Amer) BUN/Creatinine Ratio Glucose Lactate 4.9 H* Calcium Magnesium Total Bilirubin Direct Bilirubin AST ALT Alkaline Phosphatase Ammonia Total Creatine Kinase Troponin I NT-Pro-B Natriuret Pep Total Protein Albumin Lipase Procalcitonin > 200.00 H Prolactin 21.91 Urine Color Urine Appearance Urine pH Ur Specific [place] Urine Protein Urine Glucose (UA) Urine Ketones Urine Blood Urine Nitrite Urine Bilirubin Urine Urobilinogen Ur Leukocyte Esterase Urine WBC (Auto) Urine RBC (Auto) U Hyaline Cast (Auto) U Epithel Cells (Auto) Urine Bacteria (Auto) Urine RBC Urine WBC Ur Epithelial Cells Urine Bacteria Amiodarone Desmethylamiodarone SARS-CoV-2 RNA (RT-PCR) Blood Type Antibody Screen 02/02/20 02/02/20 02/02/20 09:23 09:30 10:05 WBC RBC Hgb Hct MCV MCH MCHC RDW Std Deviation RDW Coeff of Karyna Plt Count MPV Immature Gran % (Auto) Neut % (Auto) Lymph % (Auto) [place] % (Auto) Eos % (Auto) Baso % (Auto) Immature Gran # (Auto) Neut # (Auto) Lymph # (Auto) [place] # (Auto) Eos # (Auto) Baso # (Auto) Platelet Estimate RBC Morphology PT INR APTT PTT Ratio VBG pH 7.24 L VBG pCO2 58 H VBG pO2 40 VBG HCO3 24 VBG O2 Saturation < 60.0 VBG Base Excess -3.7 Barometric Pressure 724.0 Sodium Potassium Chloride Carbon Dioxide Anion Gap BUN Creatinine Est Cr Clr Drug Dosing Est GFR ( Amer) Est GFR (Non-Af Amer) BUN/Creatinine Ratio Glucose Lactate Calcium Magnesium Total Bilirubin Direct Bilirubin AST ALT Alkaline Phosphatase Ammonia Total Creatine Kinase Troponin I NT-Pro-B Natriuret Pep Total Protein Albumin Lipase Procalcitonin Prolactin Urine Color Brown Urine Appearance Turbid A Urine pH 8.0 H Ur Specific [place] 1.020 Urine Protein 2+ H Urine Glucose (UA) Negative Urine Ketones Negative Urine Blood 3+ H Urine Nitrite Negative Urine Bilirubin Negative Urine Urobilinogen Negative Ur Leukocyte Esterase 1+ H Urine WBC (Auto) >30 H Urine RBC (Auto) >30 H U Hyaline Cast (Auto) 0 U Epithel Cells (Auto) 0-5 Urine Bacteria (Auto) 3+ H Urine RBC >30 H Urine WBC >30 H Ur Epithelial Cells 0-5 Urine Bacteria 3+ H Amiodarone Desmethylamiodarone SARS-CoV-2 RNA (RT-PCR) Pending Blood Type Antibody Screen 02/02/20 02/02/20 10:43 10:43 WBC RBC Hgb Hct MCV MCH MCHC RDW Std Deviation RDW Coeff of Karyna Plt Count MPV Immature Gran % (Auto) Neut % (Auto) Lymph % (Auto) [place] % (Auto) Eos % (Auto) Baso % (Auto) Immature Gran # (Auto) Neut # (Auto) Lymph # (Auto) [place] # (Auto) Eos # (Auto) Baso # (Auto) Platelet Estimate RBC Morphology PT INR APTT PTT Ratio VBG pH VBG pCO2 VBG pO2 VBG HCO3 VBG O2 Saturation VBG Base Excess Barometric Pressure Sodium Potassium Chloride Carbon Dioxide Anion Gap BUN Creatinine Est Cr Clr Drug Dosing Est GFR ( Amer) Est GFR (Non-Af Amer) BUN/Creatinine Ratio Glucose Lactate 3.6 H* Calcium Magnesium Total Bilirubin Direct Bilirubin AST ALT Alkaline Phosphatase Ammonia Total Creatine Kinase Troponin I NT-Pro-B Natriuret Pep Total Protein Albumin Lipase Procalcitonin Prolactin Urine Color Urine Appearance Urine pH Ur Specific [place] Urine Protein Urine Glucose (UA) Urine Ketones Urine Blood Urine Nitrite Urine Bilirubin Urine Urobilinogen Ur Leukocyte Esterase Urine WBC (Auto) Urine RBC (Auto) U Hyaline Cast (Auto) U Epithel Cells (Auto) Urine Bacteria (Auto) Urine RBC Urine WBC Ur Epithelial Cells Urine Bacteria Amiodarone Pending Desmethylamiodarone Pending SARS-CoV-2 RNA (RT-PCR) Blood Type Antibody Screen Code Status & VTE Plan VTE Prophylaxis Plan VTE Prophylaxis will be ordered: Yes
--- NOTE | 2020-02-02 12:21 | Procedure Note ---
Procedure Note Date of Service February 02, 2020 Note FEMORAL CENTRAL LINE PROCEDURE NOTE: Procedure: Femoral Central Line Placement Indication: Central Drug Administration, Poor Venous Access, Multiple Lab Draws Necessary, etc. Anesthesia: 8 mL lidocaine 1% No consent was signed as the procedure was emergent A time-out was completed verifying correct patient, procedure, site, positioning, and implants(s) or special equipment if applicable. Patients right groin was cleansed and draped in the typical sterile fashion using Chloraprep. The Femoral Vein and Femoral Artery were identified using ultrasound. The superficial tissue was anesthetized using 8 mL of 1% lidocaine without e pinephrine under direct visualization with the ultrasound. After adequate anesthetization was achieved, the Femoral Vein was cannulated under direct ultrasound guidance using an introducer needle on a syringe. Good venous blood return was maintained prior to removal of syringe from introducer needle. Using Seldinger Technique, a guide wire was advanced through the introducer needle without resistance. The introducer needle was removed and ultrasound images were obtained of the guide wire within the Femoral Vein and saved to the patients medical record. A small incision was made in penetrating fashion at the guide wire insertion site utilizing an 11 blade scalpel. The dilator was advanced to the vessel without resistance. The dilator was exchanged for the triple lumen catheter which was advanced into the vessel without resistance. The guide wire was removed intact from the catheter without issue. Claves were placed on each catheter tip with confirmation of good blood flow from each lumen. Each port was easily flushed with sterile saline. The catheter was placed at the hub and sutured in place. BioPatch was applied to the catheter and a sterile Tegaderm dressing was applied over the catheter with careful attention to sterility. Patient tolerated procedure well. No immediate complications were met. Procedural Ultrasound Guidance utilized Coding CPT Codes Tubes, Drains, and Vasc Access - Tubes, Drains, and Vasc Access: [id number] Place catheter in vein superior or inferior vena cava ([id number]) Tubes, Drains, and Vasc Access - Tubes, Drains, and Vasc Access: [id number] Ultrasound Guidance For Vascular ([id number]) [facility] [place] Procedure Codes (Charges) Tubes, Drains, and Vasc Access Procedure 1: Tubes, Drains, and Vasc Access: [id number] Place catheter in vein superior or inferior vena cava Procedure 2: Tubes, Drains, and Vasc Access: [id number] Ultrasound Guidance For Vascular
--- NOTE | 2020-02-02 12:32 | Pharmacy Report ---
Pharmacy Abx Dose Short Note - Date of Service February 02, 2020 - Assessment & Plan Assessment * 89 year old F receiving VANCOMYCIN + ZOSYN + DOXYCYCLINE for treatment of septic shock, likely from urinary or pulmonary source * +leukocytosis (WBC 40.5), elevated lactate, procal > 200 * Currently intubated, norepi pressors ordered for MAPs < 65 * UA suggestive of UTI * CXR read as: Left basilar and right apical opacity which may be infectious * nasal MRSA swab pending * COVID19 serology pending * uncertain baseline renal fxn, however ARANZA likely present Plan Vancomycin * 1500mg load (~21mg/kg) x 1 * estimated half-life > 24 hrs * Will check random level w/ AM labs * Goal trough level for septic shock : 15 to 20 mcg/mL Zosyn * eCrCl < 20cc/min, critically ill, 4.5gm ext-infusion Q 12 hrs indicated * Might consider use of Cefepime + Flagyl as alternative to avoid combo of Zosyn + Vancomycin and associated renal risks Pharmacy will continue to follow and will adjust dose/frequency as necessary. Thank you.
[2020-02-02 13:03] LABS: iSTAT Allen Test Pass; iSTAT Arterial Blood Gas HCO3 24 meg/L (19-24); iSTAT Arterial Blood Gas pCO2 36 mmHg (35-46); iSTAT Arterial Blood Gas pH 7.43 (7.35-7.45); iSTAT Arterial Blood Gas pO2 99 mmHg (80-95); iSTAT Carbon Dioxide 25 mmol/L (24-31); iSTAT FiO2 80 %; iSTAT Site R Radial
[2020-02-02] MEDS ORDERED: LACTATED RINGER'S 500 ML IV ONE ×2 (13:06→18:13)
[2020-02-02] MEDS ORDERED: Nursing to Pharmacy Communication ONE (13:48)
[2020-02-02] MEDS ORDERED: GLUCAGON FOR INJ 1 MG VIAL SQ PRN (13:51)
[2020-02-02] MEDS ORDERED: GLUCOSE 10 TABS/TUBE PO PRN (13:51)
[2020-02-02] MEDS ORDERED: CARBOHYDRATES FOR HYPOGLYCEMIA PO PRN (13:51)
[2020-02-02] MEDS ORDERED: GLUCOSE 40% GEL 15 GM TUBE PO PRN (13:51)
[2020-02-02] MEDS ORDERED: PHARMACY GLYCEMIC MGMT CONSULT SCH (14:18)
--- NOTE | 2020-02-02 14:32 | Pharmacy Report ---
Pharmacy Glycemic Short Note 2 - Date of Service February 02, 2020 - Glycemic Short BSG Results (Last 24 hours): 02/02/20 08:51 Glucose 112 H OUTPATIENT ANTIDIABETIC REGIMEN: * N/A * No prior dx of DM * A1c = ? ASSESSMENT: * 89 yo female admitted w/ septic shock * Multiple stressors that may contribute to insulin resistance / hyperglycemia: infxn, pressors, mechanical ventilation * No prior dx of AM and no recent A1c result. * Will initiate correctional insulin Q 4 hrs initially and treat only if BSG > 180. Correctional insulin doses based upon pt weight and "severe" stress level. * Patient is not currently hyperglycemic, however if our initial SQ orders are unsuccessful in treating hyperglycemia, would recommend increased doses of rapid acting insulin given Q 2 hrs to quickly control BSGs in an attempt to minimize insulin drip usage in isolation patients (to conserve PPE). Might consider 0.1units/kg SQ x 1 then 0.05units/kg SQ Q 2 hrs until BSG less than 200 as our initial regimen if required. PLAN FOR INPATIENT GLYCEMIC CONTROL: * Check A1c with AM labs * Basal insulin * None at this time * Bolus insulin * NovoLog per scale Q 4 hrs * Goal Range: Low 140 mg/dL - High 180 mg/dL * Correction Factor: 25 mg/dL/unit * Nutritional / Prandial insuli: none at this time
--- NOTE | 2020-02-02 15:29 | Electrocardiogram Report ---
Test Reason : Blood Pressure : / mmHG Vent. Rate : 089 BPM Atrial Rate : 098 BPM P-R Int : 000 ms QRS Dur : 086 ms QT Int : 474 ms P-R-T Axes : 000 -08 -06 degrees QTc Int : 576 ms Poor data quality, interpretation may be adversely affected Probably sinus with 1st degree AV block Inferior infarct , age undetermined Abnormal ECG No previous ECGs available Confirmed by Francisco Tate ([id number]) on 02/02/2020 3:28:52 PM Referred By: REFERRED SELF Confirmed By:Stephan Tate
--- NOTE | 2020-02-02 15:52 | Nephrology Consultation ---
Date of Consultation February 02, 2020 Assessment & Plan (1) ARANZA (acute kidney injury): Patient with acute kidney injury likely due to ischemic ATN in setting of sepsis. Urine sediment with the numerous RBCs and WBCs. Obstructive uropathy is always a possibility. Will need a renal ultrasound when patient is stable. I do not think this is urgent. Management of ATN is supportive. No indication for dialysis. No signs of volume overload or electrolyte imbalance which would warrant dialysis. -Continue Levophed to maintain systolic blood pressure above 90. -Avoid contrast unless lifesaving. -Continue IV fluids as needed. -Discussed case with the department store salesperson (2) Acute hypoxemic respiratory failure: Due to sepsis and inability to protect airway. Patient remains intubated and on mechanical ventilation. She has a PEEP of 5 and FiO2 of 65%. Chest x- ray did not show pulmonary edema. Continue management by intensive care unit. (3) Complicated UTI (urinary tract infection): Patient is receiving broad-spectrum antibiotics per ICU and primary team. We will follow-up on urine cultures. History of Present Illness Reason for Consultation: Acute kidney injury Requesting Physician: Doyle Jones MD Attending Physician: Doyle Jones MD History of Present Illness This is 89-year-old female with history of hypertension, CHF, atrial flutter on Eliquis, peripheral neuropathy and sacral pressure ulcer who was admitted on 02/02/2020 with altered mental status. Patient recently moved from [place] and does not have medical records here. She was found unresponsive today morning. In the emergency room she was hypotensive with systolic blood pressure in the 70s to 80s. She was intubated for airway protection. She has received up to 2.5 L of fluids. She is now on Levophed and fentanyl. She remains intubated in the intensive care unit. She was also hypothermic with temperature of 35. She is unable to give history. History was obtained by talking to providers. Her creatinine was 2.9 today. She has about 500 mL's of blood-tinged urine in the Man. Her UA is suggestive of a UTI. She is receiving antibiotics. She also had a lactate of 4.9 which is improved slightly to 3.6. Allergies Allergy/AdvReac Type Severity Reaction Status Date / Time No Known Allergies Allergy Unverified 02/02/20 09:57 Home Medications Home Medications Medication Instructions Recorded Confirmed Type Stool Softener 4 cap PO QPM 02/02/20 02/02/20 History amiodarone [Pacerone] 200 mg PO QAM 02/02/20 02/02/20 History apixaban [Eliquis] 5 mg PO BID 02/02/20 02/02/20 History aspirin [Aspirin Low Dose] 81 mg PO QAM 02/02/20 02/02/20 History gabapentin 300 mg PO TID 02/02/20 02/02/20 History hydrochlorothiazide 25 mg PO QAM 02/02/20 02/02/20 History huplvjnr-loa-[place]-lycopen-lutein 1 tab PO QAM 02/02/20 02/02/20 History [Centrum Silver] Patient History Medical History Acute encephalopathy Acute hypoxemic respiratory failure Atrial flutter CHF (congestive heart failure) Complicated UTI (urinary tract infection) Diarrhea Lactic acidosis Leukocytosis S/P admission to ICU (intensive care unit) Social History Preferred Language: Haitian Communication Ability: Unable marital status: / Current Living Situation: Family Feels Safe at Home: Yes Smoking Status: Never smoker Second Hand Exposure: No ; Hx Alcohol Use: No Hx Substance Use: No Review of Systems Review of Systems: Unobtainable due to endotracheal tube Physical Exam Physical Exam: General exam: Intubated and sedated, no acute distress HEENT: Pupils are equal and reactive to light Neck: No JVD, neck is supple trachea is midline Respiratory system: Clear breath sounds bilaterally. Gastrointestinal: Abdomen is soft, non distended, non tender, bowel sounds are present CVS: Regular rate and rhythm. No murmurs, rubs or gallops Musculoskeletal: No joint or muscle tenderness Extremities: Non tender, no edema, peripheral pulses are present Neuro: Intubated and sedated, moves to pain Skin: No rashes Results & Data Vital Signs (Past 12 Hours) Vital Signs Temp Pulse Pulse Resp BP BP Pulse Ox 02/02/20 15:39 80 20 97 02/02/20 13:20 115 H 98 02/02/20 13:17 119 H 118/70 97 02/02/20 13:10 119 H 98 02/02/20 13:07 119 H 119/78 98 02/02/20 13:00 119 H 99 02/02/20 12:58 120 H 128/68 99 02/02/20 12:55 120 H 20 100 02/02/20 12:50 121 H 100 02/02/20 12:47 120 H 148/81 H 100 02/02/20 12:40 123 H 100 02/02/20 12:37 90 145/69 H 100 02/02/20 12:27 89 143/70 H 100 02/02/20 12:18 96 H 144/81 H 100 02/02/20 12:08 94 H 165/81 H 100 02/02/20 11:58 75 157/74 H 100 02/02/20 11:53 69 122/71 100 02/02/20 11:50 65 98 02/02/20 11:47 65 64/38 L 94 02/02/20 11:40 60 62/36 L 02/02/20 11:37 70 56/34 L 02/02/20 11:34 64 56/37 L 02/02/20 11:32 65 56/25 L 91 02/02/20 11:15 77 94 02/02/20 11:08 79 14 97 02/02/20 10:54 81 14 82/61 L 99 02/02/20 10:27 81 14 80/45 L 100 02/02/20 10:03 82 14 77/40 L 100 02/02/20 09:37 85 14 82/42 L 99 02/02/20 09:25 88 14 98 02/02/20 09:04 94 H 25 H 94/53 L 100 02/02/20 08:39 36.2 C L 168 H 20 84/59 L 100 Laboratory Results 02/02/20 08:51 02/02/20 02/02/20 08:51 08:51 WBC 40.25 H* RBC 3.88 L MCV 98.5 MCH 32.5 MCHC 33.0 RDW Std Deviation 55.4 H RDW Coeff of Karyna 15.6 H Plt Count 150 MPV 10.6 H Albumin 2.4 L
[2020-02-02] MEDS: INSULIN ASPART 100 UNITS/ML 3 ML PEN SC SCH ×3 (16:08→23:54)
[2020-02-02] MEDS: PIPERACILLIN/TAZOBACTAM 4.5 GM/120 ML BAG IV SCH (16:09)
[2020-02-02] MEDS: PANTOprazole 40 MG in SYRINGE 0 ML IV SCH (16:09)
[2020-02-02] MEDS ORDERED: INFLUENZA ADMINISTRATION CHARGE ONE (16:26)
[2020-02-02] MEDS ORDERED: PNEUMOCOCCAL ADMINISTRATION CHARGE ONE (16:26)
[2020-02-02] MEDS ORDERED: INFLUENZA VACCINE HIGH DOSE 65+ 0.5 ML SYR IM ONE (16:26)
[2020-02-02] MEDS ORDERED: PNEUMOCOCCAL POLYSACCHARIDES 25 MCG/0.5 ML VIAL/SYR IM ONE (16:26)
[2020-02-02] MEDS ORDERED: ALBUT/IPRATROP 3MG/0.5MG NEB 3 ML VIAL NEB STA (17:14)
[2020-02-02] MEDS: NOREPINEPHRINE (Adult) 8 MG in DEXTROSE 5% 500 ML IV SCH (22:08)
[2020-02-02] MEDS ORDERED: METOPROLOL TARTRATE 1 MG/ML VIAL IV STA (23:40)
[2020-02-02] MEDS: VASOPRESSIN 20 UNITS in 0.9 % SODIUM CHLORIDE 100 ML IV SCH (23:47)
[2020-02-03] MEDS: PIPERACILLIN/TAZOBACTAM 4.5 GM/120 ML BAG IV SCH ×2 (04:25→17:31)
[2020-02-03 04:49] LABS: Basophils # (auto) 0.03 K/uL (0-0.2); Basophils % (auto) 0.1 %; Eosinophils # (auto) 0.01 K/uL (0-0.5); Hematocrit (blood only) 35.8 % (37-47); Hemoglobin 12.1 g/dL (12.0-16.0); Immature Granulocytes # (auto) 0.08 K/uL (0.00-0.02); Immature Granulocytes % (auto) 0.4 %; Lymphocytes % (auto) 7.9 %; Mean Corpuscular Hemoglobin 32.6 pg (25-34); Mean Corpuscular Hgb Conc 33.8 g/dL (32-36); Mean Corpuscular Volume 96.5 fL (80-100); Monocytes # (auto) 0.99 K/uL (0.11-0.59); Monocytes % (auto) 4.6 %; Neutrophils # (auto) 18.82 K/uL (1.4-6.5); Platelet Count 125 K/uL (130-400); RDW Coefficient of Variation 15.7 % (11.5-14.5); RDW Standard Deviation 55.4 fL (36.4-46.3); Red Blood Count 3.71 M/uL (4.2-5.4); White Blood Count 21.63 K/uL (4.8-10.8)
[2020-02-03 04:59] LABS: BUN Creatinine Ratio 19.3 (10-20); Creatinine Clr Calc Pharmacy 16.7 ml/min; Est GFR (African American) 22.5; Est GFR (Non-African American) 19.5; Magnesium 2.5 mg/dl (1.8-2.4); Phosphorus 2.7 mg/dl (2.5-4.9); Potassium 3.4 mmol/L (3.5-5.1)
[2020-02-03] MEDS: INSULIN ASPART 100 UNITS/ML 3 ML PEN SC SCH ×6 (05:27→21:07)
[2020-02-03 05:52] LABS: iSTAT Allen Test Pass; iSTAT Arterial Blood Gas HCO3 24 meg/L (19-24); iSTAT Arterial Blood Gas pCO2 33 mmHg (35-46); iSTAT Arterial Blood Gas pH 7.47 (7.35-7.45); iSTAT Arterial Blood Gas pO2 53 mmHg (80-95); iSTAT Carbon Dioxide 25 mmol/L (24-31); iSTAT FiO2 35 %; iSTAT Site R Radial
[2020-02-03] MEDS ORDERED: POTASSIUM CHLORIDE / WTR 20 MEQ/100 ML PLCT IV ONE (06:30)
[2020-02-03] MEDS: VASOPRESSIN 20 UNITS in 0.9 % SODIUM CHLORIDE 100 ML IV SCH ×2 (06:40→17:26)
[2020-02-03 07:21] LABS: Estimated Average Glucose 117 mg/dl; Hemoglobin A1C 5.7 % (4.5-5.6)
--- NOTE | 2020-02-03 07:21 | XRay Report ---
XR chest 1V portable CLINICAL HISTORY: Respiratory failure. COMPARISON STUDY: Chest radiograph February 02, 2020. FINDINGS: Evaluation is suboptimal given difficulty with patient positioning. The tip of the endotrac heal tube is 1 cm above the john. No pneumothorax is identified. Suspected small left and trace rig ht pleural effusions are noted. Left basilar opacity has increased. Moderate cardiomegaly is noted. T here are several old left rib fractures. There is no evidence for overt pulmonary edema. Mild interst itial thickening within the lungs is probably chronic. IMPRESSION: 1. Increasing left basilar opacity which favors pneumonia. 2. Suspected small left and trace right pleural effusions. 3. Tip of endotracheal tube 1 cm above the john. ACT 112: Negative or not required by law. Electronically signed by: Nicolas Gonzalez M.D. 02/03/2020 7:19 AM
[2020-02-03] MEDS ORDERED: POTASSIUM CHLORIDE / WTR 10 MEQ/100 ML PLCT IV ONE (08:30)
[2020-02-03] MEDS ORDERED: VANCOMYCIN HCL 1,000 MG in SODIUM CHLORIDE 0.9% 250 ML IV SCH (09:00)
[2020-02-03] MEDS: fentaNYL DRIP 1,250 MCG/250 ML BAG IV SCH (09:31)
--- NOTE | 2020-02-03 09:40 | Critical Care Progress Note ---
Date of Service February 03, 2020 Assessment & Plan (1) S/P admission to ICU (intensive care unit): Patient continues to require low-dose of Levophed and vasopressin. She has septic shock from gram-negative nicanor bacteremia with the likely source being a complicated urinary tract infection. She is currently on Zosyn. We will continue Zosyn until sensitivities and speciation is back. I have ordered for repeat blood cultures today to assure clearance. Vancomycin and doxycycline discontinued. We have stopped the fentanyl. I will reassess her later in the afternoon and see if she is more awake at that time. I suspect that we will likely not be able to extubate her today and possibly extubate tomorrow morning. Continue lung protective ventilation strategy. COVID testing yesterday was negative. Given concerns of underlying seizure, will consult neurology. Will defer EEG testing to them. She did receive a dose of fosphenytoin yesterday in the emergency department. Continue Protonix for GI prophylaxis. SCDs for DVT prophylaxis given that her tongue was bleeding from a laceration. We will start tube feeds tomorrow if unable to extubate. Prior to extubation we will have to perform a cuff leak given the difficulty of her intubation in the ER. Family has indicated that she would like to be a DNR. CRITICAL CARE TIME - I have personally spent 30 minutes of critical care time in the direct management of this patient. This is a life/limb threatening event. This includes time spent evaluating patient, direct bedside care, chart review, placing orders, interpretation of diagnostic studies, discussion with consultants, patient, and family members, as well as other required patient management activities. This time is exclusive of all separately billable procedures, and teaching time and separate from and in addition to any other critical care service time. (2) Acute hypoxemic respiratory failure: (3) Acute encephalopathy: (4) Diarrhea: (5) Leukocytosis: (6) Atrial flutter: (7) Lactic acidosis: (8) CHF (congestive heart failure): (9) Complicated UTI (urinary tract infection): (10) Septic shock due to urinary tract infection: (11) Gram-negative bacteremia: Admission and Anticipated Discharge Date Admission Date: February 02, 2020 Subjective Patient is currently intubated. He is off the fentanyl. I did try her on spontaneous breathing trial of 10/5 CPAP and she was having apneic events and her tidal volumes were quite low. She had some atrial fibrillation overnight and required metoprolol. Minimal vent requirements currently. She is very lethargic but does open her eyes spontaneously. Physical Exam Constitutional: Elderly-appearing. Intubated. No apparent distress. Eyes: PERRL, conjunctivae normal, anicteric sclerae ENMT: external ear and nose normal, oropharynx normal Neck: normal visual inspection Respiratory: Coarse breath sounds on the ventilator. Cardiovascular: Rate/Rhythm: + tachycardic and + irregularly irregular Heart Sounds: no murmur Gastrointestinal (Abdomen): normal bowel sounds, soft, nontender, no hepatosplenomegaly Musculoskeletal: no cyanosis or clubbing, extremities motor strength 5/5 Skin: no rashes, warm and dry Neurologic: Lethargic. Opening eyes spontaneously. No limb movement spontaneously. Psychiatric: Intubated and unable to assess. Results & Data Results & Data ([facility]) Vital Signs (Past 12 Hours) Vital Signs Pulse Resp BP Pulse Ox 02/03/20 07:04 98 H 16 98 02/03/20 06:00 97 H 98 02/03/20 05:45 96 H 109/60 98 02/03/20 05:40 98 H 20 96 02/03/20 05:30 98 H 96 02/03/20 05:00 99 H 97 02/03/20 04:45 97 H 96/62 L 97 02/03/20 04:30 99 H 96 02/03/20 04:16 98 H 94/63 L 96 02/03/20 04:00 97 H 96 02/03/20 03:45 98 H 83/55 L 95 02/03/20 03:15 97 H 111/63 97 02/03/20 03:00 97 H 97 02/03/20 02:45 97 H 119/74 97 02/03/20 02:30 97 H 95 02/03/20 02:25 97 H 20 98 02/03/20 02:00 95 H 98 02/03/20 01:45 95 H 103/63 98 02/03/20 01:30 95 H 98 02/03/20 01:15 92 H 132/78 98 02/03/20 01:00 92 H 98 02/03/20 00:45 93 H 119/68 98 02/03/20 00:30 92 H 98 04/25/20 00:15 87 104/62 97 02/03/20 00:05 94 H 87/53 L 96 02/02/20 23:59 140 H 102/56 L 02/02/20 23:15 87 95/47 L 96 02/02/20 23:10 94 H 20 94 02/02/20 23:00 85 96 02/02/20 22:45 87 106/43 L 97 02/02/20 22:30 87 96 02/02/20 22:15 87 100/45 L 97 02/02/20 22:00 85 96 02/02/20 21:47 88 20 96 Coding Level of Care Code Critical Care 1st 30-74 mins Diagnoses S/P admission to ICU (intensive care unit) Acute hypoxemic respiratory failure J96.01 Acute encephalopathy G93.40 Diarrhea R19.7 Leukocytosis D72.829 Atrial flutter I48.92 Lactic acidosis E87.2 CHF (congestive heart failure) I50.9 Complicated UTI (urinary tract infection) N39.0 Septic shock due to urinary tract infection A41.9; R65.21; N39.0 Gram-negative bacteremia R78.81 Time Spent (min) 30
--- NOTE | 2020-02-03 10:54 | Hospitalist Progress Note ---
Date of Service February 03, 2020 Assessment & Plan (1) Altered mental status: 89 year old female with history of Atrial Flutter, CHF, presenting with unresponsiveness. ACUTE RESPIRATORY FAILURE, ALTERED MENTAL STATUS, POSSIBLY FROM: on mechanical ventilation possible extubation today ENCEPHALOPATHY SECONDARY TO SEVERE SEPSIS, GRAM NEGATIVE BACILLI BACTEREMIA, POSSIBLE PNEUMONIA, URINARY TRACT INFECTION sepsis protocol blood cultures: 1/2 gram neg bacilli repeat blood cultures: pending urine culture: pending sputum culture: pending nasal MRSA: negative Covid test: negative on Zosym Day 2 R/O SEIZURE Cerebyx given CT head: negative for acute process EEG SEPTIC SHOCK given IV fluids Levophed and Vasopressin beind weaned off management of sepsis per above ACUTE RENAL FAILURE unknown baseline crea will get records from recent hospitalization in [place] Nephro consulted crea improved from 2.9 to 2.1 good urine output continue to monitor RESPIRATORY ACIDOSIS, FROM HYPERCAPNEA management per #1 ATRIAL FLUTTER on Amiodarone, Eliquis hold for now in light of acute renal failure HISTORY OF CONGESTIVE HEART FAILURE mentioned in initial outpatient Cardiology Visit will get records from recent hospitalization in [place] currently on the dry side will also obtain echo SACRAL DECUBITUS ULCER, PRESENT ON ADMISSION does not appear infected daily wound care DVT prophylaxis SCDs Disposition lives with family at home Admission and Anticipated Discharge Date Admission Date: February 02, 2020 Subjective ff up for encephalopathy, sepsis remains on [facility], being weaned off pressors and sedation (+) low grade fever good urine output not in distress, no accessory muscle use no other issues per oracle reports developer of Systems Review of Systems: All systems reviewed & are unremarkable except as noted in HPI & below Physical Exam Physical Exam: General- sedated, not in distress, breathing with no effort or accessory muscle use Eyes- anicteric ET in place Neck- no JVD Lungs- clear BS BL Heart- normal rate, regular rhythm; no murmurs Abdomen- normal bowel sounds, nondistended, soft, nontender Extremities- no pretibial edema, no calf tenderness Neuro- sedated Skin- warm & dry Results & Data Results & Data ([facility]) Vital Signs (Past 12 Hours) Vital Signs Pulse Resp BP Pulse Ox 02/03/20 10:16 99 H 105/60 100 02/03/20 09:49 98 H 02/03/20 09:46 97 H 104/64 100 02/03/20 09:33 98 H 104/61 99 02/03/20 09:15 98 H 111/67 100 02/03/20 09:07 95 H 98/60 L 99 02/03/20 08:45 96 H 102/68 100 02/03/20 08:15 99/61 L 100 02/03/20 07:45 97 H 100/66 98 02/03/20 07:15 97 H 105/57 L 98 02/03/20 07:04 98 H 16 98 02/03/20 06:45 97 H 103/58 L 98 02/03/20 06:15 97 H 97/60 L 97 02/03/20 06:00 97 H 98 02/03/20 05:45 96 H 109/60 98 02/03/20 05:40 98 H 20 96 02/03/20 05:30 98 H 96 02/03/20 05:00 99 H 97 02/03/20 04:45 97 H 96/62 L 97 02/03/20 04:30 99 H 96 02/03/20 04:16 98 H 94/63 L 96 02/03/20 04:00 97 H 96 02/03/20 03:45 98 H 83/55 L 95 02/03/20 03:15 97 H 111/63 97 02/03/20 03:00 97 H 97 02/03/20 02:45 97 H 119/74 97 02/03/20 02:30 97 H 95 02/03/20 02:25 97 H 20 98 02/03/20 02:00 95 H 98 02/03/20 01:45 95 H 103/63 98 02/03/20 01:30 95 H 98 02/03/20 01:15 92 H 132/78 98 02/03/20 01:00 92 H 98 02/03/20 00:45 93 H 119/68 98 02/03/20 00:30 92 H 98 02/03/20 00:15 87 104/62 97 02/03/20 00:05 94 H 87/53 L 96 02/02/20 23:59 140 H 102/56 L 02/02/20 23:15 87 95/47 L 96 02/02/20 23:10 94 H 20 94 02/02/20 23:00 85 96 (1) Altered mental status Altered mental status type: unspecified Qualified Code(s): R41.82 - Altered mental status, unspecified
--- NOTE | 2020-02-03 10:58 | Ultrasound Report ---
RENAL ULTRASOUND CLINICAL HISTORY: Acute renal failure. COMPARISON STUDY: None. TECHNIQUE: Sonography of the kidneys and the urinary bladder was performed. FINDINGS: This exam was was compromised by suboptimal penetration. The right kidney measures 8.6 cm i n maximal dimension. There is no right hydronephrosis. The left kidney was not visualized. Bladder is not well visualized and appears collapsed. IMPRESSION: 1. Technically difficult exam. Nonvisualization of the left kidney. 2. No right hydronephrosis. ACT 112: Negative or not required by law. Electronically signed by: Nicolas Gonzalez M.D. 02/03/2020 10:57 AM
--- NOTE | 2020-02-03 11:46 | Neurology Consultation ---
Date of Consultation February 03, 2020 Assessment & Plan (1) Gram-negative bacteremia: (2) Septic shock due to urinary tract infection: (3) Altered mental status: Susan Hyatt is an 89 yo woman w/ PMH of atrial flutter on Eliquis at home, CHF and history of UTIs who presented to [facility] on 02/01 after being found unresponsive by family. # AMS, possible seizure: most likely 2/2 urosepsis with hypermagnesemia and uremia/ARF. No sign of large territory infarct or ICH on CTH from 02/02/20. Would complete work-up for AMS as below - obtain MRI brain w/o contrast when able to r/o brainstem infarct or other underlying lesion given c/f possible seizure at home - routine EEG (please use propofol for sedation if needed and avoid benzos/versed) - no need for AED at this time unless EEG shows seizures or seizure tendency - treat infections as already doing per primary team - amiodarone level pending, would also check gabapentin level Thank you for this interesting consult. Plan of care discussed with primary team. Please call or text with questions. (4) Atrial flutter: History of Present Illness Attending Physician: Doyle Jones MD History of Present Illness Susan Hyatt is an 89 yo woman w/ PMH of atrial flutter on Eliquis at home, CHF and history of UTIs who presented to [facility] on 02/01 after being found unresponsive by family. Per report, she has been noted to be biting her tongue for the last 1 to 2 days that caused significant amount of bleeding since she is on Eliquis at home. Daughter reported that her mother had felt fatigued, chills and alternating episodes of diarrhea and constipation the last 2 days. Of note, she is on both aspirin and apixaban at home. In the ED, she was afebrile, with initial vitals blood pressure 84/59, satting 100% on 15 L nonrebreather, heart rate 168. Labs notable for WBC 40.25, hemoglobin 12.6, platelets 150, sodium 138, creatinine 2.95, BUN 44, glucose 112, calcium 8.6, magnesium elevated 3.1, AST mildly elevated at 43 with normal ALT mildly elevated alkaline phosphatase 137. CK elevated 360, troponin 0 0.033, BNP 3585, lipase 19, INR 1.3, ammonia 30.3, lactate elevated 4.9, pro calcitonin greater than 200, prolactin elevated 21.1, UA floridly positive for UTI with 3+ bacteria, greater than 30 WBCs, 1+ leuk esterase negative nitrates, 3+ blood. She was given IV fluids for hypotension and started on Zosyn for UTI. Given that she moved from [place] at the beginning of December, she had a in-house cover test which was negative. Given concern for possible seizure and her AMS, CT head was performed and independent review shows no hemorrhage or hypodensity, there is significant generalized atrophy with SVID noted. CT of the cervical spine was also performed and shows subpleural ground-glass opacity and reticulation in the lung apices favoring interstitial lung disease with possible superimposed pulmonary edema, old mild T2 compression fracture, severe multilevel facet arthrosis with moderate multilevel degenerative disc disease. Blood culture notable for gram-negative axillae, speciation and sensitivities pending. She was intubated in the ED for airway protection and admitted to the ICU for further treatment. On examination today, she would open eyes to voice and resist further eye opening but otherwise did not follow commands or move extremities. Leukocytosis is downtrending and she is making urine at this time. Allergies Allergy/AdvReac Type Severity Reaction Status Date / Time No Known Allergies Allergy Unverified 02/02/20 09:57 Home Medications Home Medications Medication Instructions Recorded Confirmed Type Stool Softener 4 cap PO QPM 02/02/20 02/02/20 History amiodarone [Pacerone] 200 mg PO QAM 02/02/20 02/02/20 History apixaban [Eliquis] 5 mg PO BID 02/02/20 02/02/20 History aspirin [Aspirin Low Dose] 81 mg PO QAM 02/02/20 02/02/20 History gabapentin 300 mg PO TID 02/02/20 02/02/20 History hydrochlorothiazide 25 mg PO QAM 02/02/20 02/02/20 History imfbkxxq-non-QX-lycopen-lutein 1 tab PO QAM 02/02/20 02/02/20 History [Centrum Silver] Patient History Medical History Acute encephalopathy (Acute) Acute hypoxemic respiratory failure (Acute) Atrial flutter CHF (congestive heart failure) Complicated UTI (urinary tract infection) Diarrhea Gram-negative bacteremia Lactic acidosis Leukocytosis S/P admission to ICU (intensive care unit) Septic shock due to urinary tract infection Social History Preferred Language: Croatian Communication Ability: Unable marital status: / Current Living Situation: Family Feels Safe at Home: Yes Smoking Status: Never smoker Second Hand Exposure: No ; Hx Alcohol Use: No Hx Substance Use: No Review of Systems Review of Systems: Unobtainable due to endotracheal tube and Unobtainable due to reduced consciousness Exam (Neuro) Physical Exam: General Exam: GEN: intubated, has received minimal sedation CV: irregularly irregular, no peripheral edema PULM: intubated Neuro Exam: MS: Eyes to voice. Intubated hence unable to answer orientation questions or assess speech/cognition. No neglect. Does not follow commands. CN: Positive blink to threat bilaterally. Patient kept closing her eyes so unable to view optic disc on fundoscopic exam. PERRLA OU. Eyes midline and would move appropriately with horizontal head movements. Face symmetric on ETT. Hearing intact to conversation. Positive cough and gag. MOTOR: Normal bulk, decreased tone. No spontaneous movements observed REFLEXES: 1+ at biceps, brachioradialis, trace patella and absent Achilles bilaterally. Toes mute bilaterally. SENSORY: Grimaces to noxious stimuli in all extremities however does not withdraw COORDINATION: deferred, intubated GAIT: deferred, intubated Results & Data ([facility]) Vital Signs (Past 12 Hours) Vital Signs Pulse Resp BP Pulse Ox 02/03/20 11:16 96 H 108/65 99 02/03/20 10:46 102/61 98 02/03/20 10:37 94 H 14 99 02/03/20 10:16 99 H 105/60 100 02/03/20 09:49 98 H 02/03/20 09:46 97 H 104/64 100 02/03/20 09:33 98 H 104/61 99 02/03/20 09:15 98 H 111/67 100 02/03/20 09:07 95 H 98/60 L 99 02/03/20 08:45 96 H 102/68 100 02/03/20 08:15 99/61 L 100 02/03/20 07:45 97 H 100/66 98 02/03/20 07:15 97 H 105/57 L 98 02/03/20 07:04 98 H 16 98 02/03/20 06:45 97 H 103/58 L 98 02/03/20 06:15 97 H 97/60 L 97 02/03/20 06:00 97 H 98 02/03/20 05:45 96 H 109/60 98 02/03/20 05:40 98 H 20 96 02/03/20 05:30 98 H 96 02/03/20 05:00 99 H 97 02/03/20 04:45 97 H 96/62 L 97 02/03/20 04:30 99 H 96 02/03/20 04:16 98 H 94/63 L 96 02/03/20 04:00 97 H 96 02/03/20 03:45 98 H 83/55 L 95 02/03/20 03:15 97 H 111/63 97 02/03/20 03:00 97 H 97 02/03/20 02:45 97 H 119/74 97 02/03/20 02:30 97 H 95 02/03/20 02:25 97 H 20 98 02/03/20 02:00 95 H 98 02/03/20 01:45 95 H 103/63 98 02/03/20 01:30 95 H 98 02/03/20 01:15 92 H 132/78 98 02/03/20 01:00 92 H 98 02/03/20 00:45 93 H 119/68 98 02/03/20 00:30 92 H 98 02/03/20 00:15 87 104/62 97 02/03/20 00:05 94 H 87/53 L 96 02/02/20 23:59 140 H 102/56 L PG Care Time/CCT Total # of Minutes Spent Total Time Spent with Patient: Total time spent is greater than 50% in coordination of care (as documented) at patient's floor/unit and/or counseling patient: Coding Level of Care Code 09301 Initial Inpt Care Lvl 3 Diagnoses Gram-negative bacteremia R78.81 Septic shock due to urinary tract infection A41.9; R65.21; N39.0 Altered mental status R41.82 Altered mental status type: unspecified Atrial flutter I48.92 (1) Altered mental status Altered mental status type: unspecified Qualified Code(s): R41.82 - Altered mental status, unspecified
[2020-02-03] MEDS: PANTOprazole 40 MG in SYRINGE 0 ML IV SCH (17:31)
--- NOTE | 2020-02-03 17:46 | Electroencephalogram ---
EEG Procedure Note Date of Service February 03, 2020 Start / End Times Start Time: 2:06pm End Time: 2:26pm Referring Physician Doyle Martinez History possible seizure, AMS/no return to baseline Home Medication List Home Medications Medication Instructions Recorded Confirmed Type Stool Softener 4 cap PO QPM 02/02/20 02/02/20 History amiodarone [Pacerone] 200 mg PO QAM 02/02/20 02/02/20 History apixaban [Eliquis] 5 mg PO BID 02/02/20 02/02/20 History aspirin [Aspirin Low Dose] 81 mg PO QAM 02/02/20 02/02/20 History gabapentin 300 mg PO TID 02/02/20 02/02/20 History hydrochlorothiazide 25 mg PO QAM 02/02/20 02/02/20 History beysnwkr-psa-SR-lycopen-lutein 1 tab PO QAM 02/02/20 02/02/20 History [Centrum Silver] Inpatient Medication List Fentanyl Citrate (Fentanyl Drip) 1,250 mcg in 250 mls @ 0 mls/hr IV .Q0M [facility]; Protocol Stop: 02/16/20 08:59 Last Admin: 02/03/20 09:31 Dose: Not Given Documented by: [id number] Titration: 02/03/20 08:54 Dose: 0 mcg/hr, 0 mls/hr Documented by: [id number] Titration: 02/03/20 07:26 Dose: 25 mcg/hr, 5 mls/hr Documented by: [id number] Cosigned by: [id number] Titration: 02/02/20 19:00 Dose: 25 mcg/hr, 5 mls/hr Documented by: [id number] Cosigned by: [id number] Admin: 02/02/20 09:01 Dose: 25 mcg/hr, 5 mls/hr Documented by: [id number] Cosigned by: [id number] Norepinephrine Bitartrate 8 mg (/ Dextrose) 508 mls @ 5.418 mls/hr IV .Q24H [facility]; Protocol Stop: 03/03/20 11:44 Last Titration: 02/03/20 11:45 Dose: 0.02 mcg/kg/min, 5.4 mls/hr Documented by: [id number] Titration: 02/03/20 11:21 Dose: 0.01 mcg/kg/min, 2.7 mls/hr Documented by: [id number] Titration: 02/03/20 10:30 Dose: 0.03 mcg/kg/min, 8.1 mls/hr Documented by: [id number] Titration: 02/03/20 08:00 Dose: 0.05 mcg/kg/min, 13.5 mls/hr Documented by: [id number] Titration: 02/03/20 07:26 Dose: 0.075 mcg/kg/min, 20.3 mls/hr Documented by: [id number] Cosigned by: [id number] Titration: 02/03/20 01:15 Dose: 0.075 mcg/kg/min, 20.3 mls/hr Documented by: [id number] Titration: 02/03/20 00:00 Dose: 0.1 mcg/kg/min, 27.1 mls/hr Documented by: [id number] Admin: 02/02/20 22:08 Dose: 0.15 mcg/kg/min, 40.6 mls/hr Documented by: [id number] Cosigned by: [id number] Pantoprazole Sodium 40 mg/ (Syringe) 10 mls @ 5 mls/min IV DAILY@1600 [facility] Stop: 03/03/20 15:59 Last Admin: 02/02/20 16:09 Dose: 5 mls/min Documented by: [id number] Piperacillin Sod/Tazobactam Sod (Zosyn) 4.5 gm in 120 mls @ 30 mls/hr IV Q12H [facility]; Protocol Stop: 02/12/20 15:59 Last Infusion: 02/03/20 09:32 Dose: 0 mls/hr Documented by: [id number] Admin: 02/03/20 04:25 Dose: 30 mls/hr Documented by: [id number] Infusion: 02/02/20 20:15 Dose: 0 mls/hr Documented by: [id number] Admin: 02/02/20 16:09 Dose: 30 mls/hr Documented by: [id number] Vasopressin 20 units/ Sodium (Chloride) 101 mls @ 12.12 mls/hr IV .Q8H20M [facility] Stop: 03/03/20 23:29 Last Infusion: 02/03/20 07:26 Dose: 0.04 unit/min, 12.1 mls/hr Documented by: [id number] Cosigned by: [id number] Admin: 02/03/20 06:40 Dose: 0.04 unit/min, 12.1 mls/hr Documented by: [id number] Cosigned by: [id number] Infusion: 02/03/20 06:40 Dose: 0.04 unit/min, 12.1 mls/hr Documented by: [id number] Cosigned by: [id number] Admin: 02/02/20 23:47 Dose: 0.04 unit/min, 12.1 mls/hr Documented by: [id number] Cosigned by: [id number] Insulin Aspart (Novolog Flexpen) 0 units SC Q4 [facility] Stop: 03/03/20 15:59 Last Admin: 02/03/20 12:12 Dose: Not Given Documented by: [id number] Cosigned by: [id number] Admin: 02/03/20 09:21 Dose: Not Given Documented by: [id number] Cosigned by: [id number] Admin: 02/03/20 05:29 Dose: Not Given Documented by: [id number] Cosigned by: [id number] Admin: 02/03/20 05:27 Dose: Not Given Documented by: [id number] Cosigned by: [id number] Admin: 02/02/20 23:54 Dose: Not Given Documented by: [id number] Cosigned by: [id number] Admin: 02/02/20 21:00 Dose: Not Given Documented by: [id number] Cosigned by: [id number] Admin: 02/02/20 16:08 Dose: Not Given Documented by: [id number] Cosigned by: [id number] Discontinued Medications Albuterol (Duoneb) 3 ml NEB NOW STA Stop: 02/02/20 17:15 Last Admin: 02/02/20 17:17 Dose: Not Given Documented by: [id number] Sodium Chloride (Nss 1000ml) 1,000 mls @ 999 mls/hr IV .Q1H1M ONE Stop: 02/02/20 09:36 Last Infusion: 02/02/20 09:45 Dose: 0 mls/hr Documented by: [id number] Admin: 02/02/20 08:30 Dose: 999 mls/hr Documented by: [id number] Piperacillin Sod/Tazobactam Sod (Zosyn) 4.5 gm in 120 mls @ 240 mls/hr IV NOW ONE Stop: 02/02/20 10:06 Last Infusion: 02/02/20 11:15 Dose: 0 mls/hr Documented by: [id number] Admin: 02/02/20 09:53 Dose: 30 mls/hr Documented by: [id number] Sodium Chloride (Nss 1000ml) 1,000 mls @ 125 mls/hr IV .Q8H [facility] Stop: 03/03/20 09:44 Last Infusion: 02/02/20 13:29 Dose: 0 mls/hr Documented by: [id number] Admin: 02/02/20 09:46 Dose: 125 mls/hr Documented by: [id number] Fosphenytoin Sodium 1,000 mgpe (/ Sodium Chloride) 70 mls @ 420 mls/hr IV NOW STA Stop: 02/02/20 10:07 Last Infusion: 02/02/20 13:45 Dose: 0 mls/hr Documented by: [id number] Admin: 02/02/20 10:54 Dose: 25 mls/hr Documented by: [id number] Vancomycin HCl 1,500 mg/ (Sodium Chloride) 530 mls @ 200 mls/hr IV NOW ONE Stop: 02/02/20 14:38 Last Infusion: 02/02/20 15:00 Dose: 0 mls/hr Documented by: [id number] Admin: 02/02/20 12:17 Dose: 200 mls/hr Documented by: [id number] Norepinephrine Bitartrate 4 mg (/ Dextrose) 254 mls @ 27.089 mls/hr IV .Q9H23M [facility]; Protocol Stop: 02/02/20 21:01 Last Titration: 02/02/20 22:18 Dose: 0 mcg/kg/min, 0 mls/hr Documented by: [id number] Titration: 02/02/20 18:45 Dose: 0.1 mcg/kg/min, 27.1 mls/hr Documented by: [id number] Cosigned by: [id number] Titration: 02/02/20 17:00 Dose: 0.08 mcg/kg/min, 21.7 mls/hr Documented by: [id number] Titration: 02/02/20 13:31 Dose: 0.06 mcg/kg/min, 16.3 mls/hr Documented by: [id number] Titration: 02/02/20 12:30 Dose: 0.08 mcg/kg/min, 21.7 mls/hr Documented by: [id number] Titration: 02/02/20 12:15 Dose: 0.1 mcg/kg/min, 27.1 mls/hr Documented by: [id number] Admin: 02/02/20 11:50 Dose: 0.2 mcg/kg/min, 54.2 mls/hr Documented by: [id number] Cosigned by: [id number] Sodium Chloride (Nss 1000ml) 1,000 mls @ 125 mls/hr IV .Q8H [facility] Stop: 03/03/20 11:51 Last Admin: 02/02/20 13:05 Dose: Not Given Documented by: [id number] Doxycycline Hyclate 100 mg/ (Dextrose) 110 mls @ 55 mls/hr IV Q12H [facility] Stop: 02/09/20 11:59 Last Admin: 02/02/20 12:17 Dose: Not Given Documented by: [id number] Lactated Ringer's (Lr) 500 mls @ 999 mls/hr IV .Q31M ONE Stop: 02/02/20 13:36 Last Infusion: 02/02/20 13:05 Dose: 0 mls/hr Documented by: [id number] Admin: 02/02/20 12:30 Dose: 999 mls/hr Documented by: [id number] Lactated Ringer's (Lr) 500 mls @ 999 mls/hr IV .Q31M ONE Stop: 02/02/20 18:43 Last Infusion: 02/02/20 18:45 Dose: 0 mls/hr Documented by: [id number] Admin: 02/02/20 18:05 Dose: 999 mls/hr Documented by: [id number] Potassium Chloride (K Robbi / Wtr) 10 meq in 100 mls @ 100 mls/hr IV ONE ONE Stop: 02/03/20 09:29 Last Infusion: 02/03/20 10:40 Dose: 0 mls/hr Documented by: [id number] Admin: 02/03/20 09:31 Dose: 100 mls/hr Documented by: [id number] Potassium Chloride (K Robbi / Wtr) 20 meq in 100 mls @ 50 mls/hr IV ONE ONE Stop: 02/03/20 08:29 Last Infusion: 02/03/20 09:36 Dose: 0 mls/hr Documented by: [id number] Admin: 02/03/20 06:25 Dose: 50 mls/hr Documented by: [id number] Metoprolol Tartrate (Lopressor) 5 mg IV NOW STA Stop: 02/02/20 23:41 Last Admin: 04/24/20 23:59 Dose: 5 mg Documented by: [id number] Miscellaneous () Confirm Administered Dose 1 ea .ROUTE .STK-MED ONE Stop: 02/02/20 08:41 Last Admin: 02/02/20 09:53 Dose: 1 ea Documented by: [id number] Miscellaneous () 1 ea N/A NOW STA Stop: 02/02/20 08:47 Last Admin: 02/02/20 17:49 Dose: Not Given Documented by: [id number] Sodium Bicarbonate (Sodium Bicarbonate 8.4%) Confirm Administered Dose 100 meq .ROUTE .STK-MED ONE Stop: 02/02/20 11:42 Last Admin: 02/02/20 12:13 Dose: 100 meq Documented by: [id number] Description This is a 21 electrode EEG with a single channel dedicated to limited EKG. The electrodes were placed in accordance with the International 10-20 system. History: possible seizure, AMS/no return to baseline Rx: fentanyl (same day as recording) Start/Stop: 2:06pm-2:26pm Attending reading: Rachel Small EEG Description: EEG background: Background was polymorphic delta/theta slowing with overriding lower voltage muscle artifact at times. No well formed posterior dominant rhythm was observed. The EEG is continuous. There is variability, no clear reactivity present. Activation and reactivity: Photic stimulation performed without any abnormalities noted. No photic driving observed. Hyperventilation was not performed. Sleep: none recorded. Epileptiform discharges: No epileptiform discharges were observed. Rhythmic and periodic patterns: Recurrent 5-10 second runs of 1-2 Hz GPDs without clear evolution Seizures: see below Impression: This was an abnormal EEG given recurrent runs of 1-2Hz GPDs in the setting of generalized slowing likely from toxic-metabolic encephalopathy. Given her clinical status, this is on the ictal-interictal spectrum. A trial of AED is recommended to see if mental status improves. [facility] EEG Procedure Codes Indication for Procedure (1) Gram-negative bacteremia: (2) Septic shock due to urinary tract infection: (3) Altered mental status: Neurology Neurology: [id number] EEG include record awake & drowsy
[2020-02-03] MEDS ORDERED: PROPOFOL BOLUS FROM BAG IV PRN (17:50)
[2020-02-03] MEDS ORDERED: STAT IV Infusion **Titration per Protocol STA (17:50)
[2020-02-03] MEDS ORDERED: LACOSAMIDE 150 MG in SODIUM CHLORIDE 0.9% 50 ML IV ONE (18:00)
[2020-02-03] MEDS ORDERED: propofoL 1,000 MG/100 ML VIAL IV SCH ×2 (18:00→18:30)
[2020-02-03] MEDS: NOREPINEPHRINE (Adult) 8 MG in DEXTROSE 5% 500 ML IV SCH (18:17)
--- NOTE | 2020-02-03 18:30 | Nephrology Progress Note ---
Date of Service February 03, 2020 Assessment & Plan (1) ARANZA (acute kidney injury): Patient with acute kidney injury likely due to ischemic ATN in setting of sepsis. Urine sediment with the numerous RBCs and WBCs. renal u/s. Small right kidney. Left kidney not seen. No hydronephrosis. Management of ATN is supportive. No indication for dialysis. No signs of volume overload or electrolyte imbalance which would warrant dialysis. Cr better today at 2.1 -Continue Levophed to maintain systolic blood pressure above 90. -Avoid contrast unless lifesaving. -Continue IV fluids as needed. (2) Acute hypoxemic respiratory failure: Due to sepsis and inability to protect airway. Patient remains intubated and on mechanical ventilation. Chest x-ray did not show pulmonary edema. Continue management by intensive care unit. (3) Complicated UTI (urinary tract infection): Patient with G negative bacteremia. Continue antibiotics. We will follow- up on urine cultures Admission and Anticipated Discharge Date Admission Date: February 02, 2020 Subjective Patient seen during morning rounds. Unable to give history due to intubation. She is making urine Review of Systems Review of Systems: Unobtainable due to endotracheal tube Physical Exam Physical Exam: General exam: Intubated and sedated, no acute distress HEENT: Atramatic Neck: No JVD, neck is supple trachea is midline Respiratory system: Clear breath sounds bilaterally. Gastrointestinal: Abdomen is soft, non distended, non tender, bowel sounds are present CVS: Regular rate and rhythm. No murmurs, rubs or gallops Musculoskeletal: No joint or muscle tenderness Extremities: Non tender, no edema, peripheral pulses are present Neuro: Intubated and sedated Skin: No rashes Results & Data ([facility]) Vital Signs (Past 12 Hours) Vital Signs Pulse Resp BP Pulse Ox 02/03/20 17:49 97 H 02/03/20 17:46 111/55 L 98 02/03/20 17:16 99 H 119/68 98 02/03/20 16:46 97 H 98/53 L 97 02/03/20 16:00 98 H 20 96 02/03/20 15:47 98 H 68/45 L 94 02/03/20 15:16 97 H 97/70 L 100 02/03/20 14:46 99 H 90/62 L 100 02/03/20 14:16 99 H 93/58 L 99 02/03/20 13:46 100 H 99/68 L 100 02/03/20 13:16 99 H 103/69 100 02/03/20 13:05 97 H 20 100 02/03/20 12:46 101/61 100 02/03/20 12:16 94 H 101/68 99 02/03/20 12:07 88 89/58 L 98 02/03/20 11:52 94 H 79/56 L 98 02/03/20 11:46 100 H 80/50 L 98 02/03/20 11:21 100 H 18 99 02/03/20 11:16 96 H 108/65 99 02/03/20 10:46 102/61 98 02/03/20 10:37 94 H 14 99 02/03/20 10:16 99 H 105/60 100 02/03/20 09:49 98 H 02/03/20 09:46 97 H 104/64 100 02/03/20 09:33 98 H 104/61 99 02/03/20 09:15 98 H 111/67 100 02/03/20 09:07 95 H 98/60 L 99 02/03/20 08:45 96 H 102/68 100 02/03/20 08:15 99/61 L 100 02/03/20 07:45 97 H 100/66 98 02/03/20 07:15 97 H 105/57 L 98 02/03/20 07:04 98 H 16 98 02/03/20 06:45 97 H 103/58 L 98 Laboratory Results 02/03/20 04:20 02/03/20 02/03/20 04:20 04:20 WBC 21.63 H D RBC 3.71 L MCV 96.5 MCH 32.6 MCHC 33.8 RDW Std Deviation 55.4 H RDW Coeff of Karyna 15.7 H Plt Count 125 L MPV 10.0 Phosphorus 2.7 Diagnostic Findings renal u/s. Small right kidney. Left kidney not seen. No hydronephrosis
[2020-02-04] MEDS: INSULIN ASPART 100 UNITS/ML 3 ML PEN SC SCH ×6 (00:15→20:43)
[2020-02-04] MEDS: VASOPRESSIN 20 UNITS in 0.9 % SODIUM CHLORIDE 100 ML IV SCH ×3 (00:15→18:31)
[2020-02-04] MEDS: PIPERACILLIN/TAZOBACTAM 4.5 GM/120 ML BAG IV SCH ×3 (03:33→23:52)
[2020-02-04 04:07] LABS: Hematocrit (blood only) 33.1 % (37-47); Mean Corpuscular Hemoglobin 32.3 pg (25-34); Mean Corpuscular Hgb Conc 33.2 g/dL (32-36); Mean Corpuscular Volume 97.1 fL (80-100); RDW Coefficient of Variation 15.6 % (11.5-14.5); RDW Standard Deviation 54.9 fL (36.4-46.3); Red Blood Count 3.41 M/uL (4.2-5.4); White Blood Count 16.14 K/uL (4.8-10.8)
[2020-02-04 04:23] LABS: BUN Creatinine Ratio 24.6 (10-20); Creatinine Clr Calc Pharmacy 20.7 ml/min; Est GFR (African American) 29.4; Est GFR (Non-African American) 25.4; Magnesium 2.4 mg/dl (1.8-2.4); Phosphorus 2.8 mg/dl (2.5-4.9); Potassium 3.4 mmol/L (3.5-5.1)
[2020-02-04 04:30] LABS: Basophils # (auto) 0.04 K/uL (0-0.2); Basophils % (auto) 0.2 %; Dohle Bodies 1+; Eosinophils # (auto) 0.04 K/uL (0-0.5); Eosinophils % (auto) 0.2 %; Immature Granulocytes # (auto) 0.05 K/uL (0.00-0.02); Immature Granulocytes % (auto) 0.3 %; Lymphocytes # (auto) 2.88 K/uL (1.2-3.4); Lymphocytes % (auto) 17.8 %; Mean Platelet Volume 10.3 fL (7.4-10.4); Monocytes # (auto) 0.66 K/uL (0.11-0.59); Monocytes % (auto) 4.1 %; Neutrophils # (auto) 12.47 K/uL (1.4-6.5); Neutrophils % (auto) 77.4 %; Platelet Count 99 K/uL (130-400); Platelet Estimate Decreased (Normal); Toxic Vacuolation 1+
[2020-02-04 05:27] LABS: iSTAT Arterial Blood Gas HCO3 24 meg/L (19-24); iSTAT Arterial Blood Gas pCO2 29 mmHg (35-46); iSTAT Arterial Blood Gas pH 7.51 (7.35-7.45); iSTAT Arterial Blood Gas pO2 93 mmHg (80-95); iSTAT Carbon Dioxide 24 mmol/L (24-31); iSTAT FiO2 30 %; iSTAT Site L Radial
[2020-02-04] MEDS ORDERED: STAT IV Infusion **Titration per Protocol STA ×2 (06:12→09:49)
[2020-02-04] MEDS ORDERED: DOPAMINE / D5W 400 MG/250 ML BAG IV SCH (06:15)
[2020-02-04] MEDS ORDERED: LACOSAMIDE 50 MG TABLET PO SCH (09:00)
[2020-02-04] MEDS ORDERED: LACTATED RINGER'S 500 ML IV ONE (09:13)
--- NOTE | 2020-02-04 09:16 | Critical Care Progress Note ---
Date of Service February 04, 2020 Assessment & Plan (1) S/P admission to ICU (intensive care unit): Patient continues to require low-dose of Levophed and vasopressin. She has septic shock from gram-negative nicanor bacteremia with the likely source being a complicated urinary tract infection. She is currently on Zosyn. We will continue Zosyn until sensitivities and speciation is back. Repeat blood cultures pending. Repeat procalcitonin pending. We will give her 500 cc bolus of lactated Ringer's to see if indicated wean off the pressors. She has ongoing atrial fibrillation. She is hypokalemic. Replacing potassium. Tacky bradycardia overnight. Continue to monitor. EEG yesterday demonstrated possible nonconvulsive seizures. We gave her a one-time dose of 150 mg of Vimpat and her giving her 75 mg IV twice daily Vimpat today. She was also on propofol overnight for burst suppression. Performing a bedside EEG today. We will evaluate for SBT after the EEG today. If unable to pass spontaneous breathing trial, will insert an NG tube and start tube feeds. Additionally, if unable to extubate, will perform an MRI of the brain without contrast per neurology's recommendation. Appreciate their input. We will also check gabapentin level as she may have been accumulating metabolites given her renal failure. Continue Protonix for GI prophylaxis. SCDs for DVT prophylaxis given that her tongue was bleeding from a laceration. We will start tube feeds tomorrow if unable to extu angel. Prior to extubation we will have to perform a cuff leak given the difficulty of her intubation in the ER. Overall prognosis guarded. CRITICAL CARE TIME - I have personally spent 30 minutes of critical care time in the direct management of this patient. This is a life/limb threatening event. This includes time spent evaluating patient, direct bedside care, chart review, placing orders, interpretation of diagnostic studies, discussion with consultants, patient, and family members, as well as other required patient management activities. This time is exclusive of all separately billable procedures, and teaching time and separate from and in addition to any other critical care service time. 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 She was on 20 mg of propofol overnight. Levophed was restarted. Currently undergoing EEG. Nurse reports that at times the patient is reaching for the ET tube. Currently she for me she is quite somnolent and not having any spontaneous limb movements. Review of Systems Review of Systems: Unobtainable due to endotracheal tube Physical Exam Constitutional: Elderly-appearing. Intubated. No apparent distress. Eyes: PERRL, conjunctivae normal, anicteric sclerae ENMT: external ear and nose normal, oropharynx normal Neck: normal visual inspection Respiratory: Coarse breath sounds on the ventilator. Cardiovascular: Rate/Rhythm: + tachycardic and + irregularly irregular Heart Sounds: no murmur Gastrointestinal (Abdomen): normal bowel sounds, soft, nontender, no hepat osplenomegaly Musculoskeletal: no cyanosis or clubbing, extremities motor strength 5/5 Skin: no rashes, warm and dry Neurologic: Lethargic. Opening eyes spontaneously. No limb movement spontaneously. Psychiatric: Intubated and unable to assess. Results & Data Results & Data ([facility]) Vital Signs (Past 12 Hours) Vital Signs Temp Pulse Resp BP Pulse Ox 02/04/20 07:40 96 H 12 98 02/04/20 06:23 68 136/86 98 02/04/20 06:13 39 L 72/47 L 94 02/04/20 06:09 59 L 66/43 L 96 02/04/20 06:00 86 97 02/04/20 05:58 81 95/68 L 97 02/04/20 05:28 94 H 100/68 97 02/04/20 05:20 12 02/04/20 04:58 94 H 104/71 97 02/04/20 04:28 96 H 105/81 98 02/04/20 03:58 97.9 F 92 H 94/62 L 94 02/04/20 03:28 69 96/61 L 96 02/04/20 02:58 74 94/60 L 97 02/04/20 02:28 100 H 82/62 L 94 02/04/20 02:10 99 H 16 97 02/04/20 01:58 69 101/69 97 02/04/20 01:28 90 105/71 98 02/04/20 00:58 97 H 115/82 99 02/04/20 00:28 115 H 94/68 L 96 02/03/20 23:58 98.6 F 112 H 109/77 97 02/03/20 23:28 92 H 94/65 L 95 02/03/20 22:58 97 H 107/77 98 02/03/20 22:55 117 H 16 98 02/03/20 22:28 100 H 124/86 100 02/03/20 21:58 81 116/78 98 02/03/20 21:28 88 111/77 98 Coding Level of Care Code Critical Care 1st 30-74 mins Diagnoses S/P admission to ICU (intensive care unit) Acute hypoxemic respiratory failure J96.01 Acute encephalopathy G93.40 Diarrhea R19.7 Leukocytosis D72.829 Atrial flutter I48.92 Lactic acidosis E87.2 CHF (congestive heart failure) I50.9 Complicated UTI (urinary tract infection) N39.0 Septic shock due to urinary tract infection A41.9; R65.21; N39.0 Gram-negative bacteremia R78.81 Non-convulsive status epilepticus G40.901 Atrial fibrillation I48.91 Geovanny-tachy syndrome I49.5 Time Spent (min) 30
[2020-02-04] MEDS: SODIUM CHLORIDE 0.9% IV SCH ×2 (09:45→20:54)
[2020-02-04] MEDS: LACOSAMIDE IV SCH ×2 (09:45→20:54)
[2020-02-04] MEDS: POTASSIUM CHLORIDE / WTR 10 MEQ/100 ML PLCT IV SCH ×4 (09:47→13:19)
[2020-02-04] MEDS ORDERED: DEXMEDETOMIDINE HCL 200 MCG in SODIUM CHLORIDE 0.9% 48 ML IV SCH (10:00)
--- NOTE | 2020-02-04 10:30 | Nephrology Progress Note ---
Date of Service February 04, 2020 Assessment & Plan (1) ARANZA (acute kidney injury): Patient with acute kidney injury likely due to ischemic ATN in setting of sepsis. Urine sediment with the numerous RBCs and WBCs. renal u/s. Small right kidney. Left kidney not seen. No hydronephrosis. Management of ATN is supportive. No indication for dialysis. No signs of volume overload or electrolyte imbalance which would warrant dialysis. Cr better today at 1.75. Potassium is low at 3.4. -Continue Levophed to maintain systolic blood pressure above 90. -Avoid contrast unless lifesaving. -Suggest normal saline with 40 mEq of potassium chloride to run at 80 mL/h. (2) Acute hypoxemic respiratory failure: Due to sepsis and inability to protect airway. Patient remains intubated and on mechanical ventilation. Chest x-ray did not show pulmonary edema. C ontinue management by intensive care unit. (3) Gram-negative bacteremia: Patient with gram-negative bacteremia likely source is UTI. She is receiving Zosyn. We will follow-up for urine cultures. Admission and Anticipated Discharge Date Admission Date: February 02, 2020 Subjective Patient remains intubated and sedated. Unable to give history. She remains hypotensive on Levophed and vasopressin. Creatinine is downtrending. Review of Systems Review of Systems: Unobtainable due to endotracheal tube Physical Exam Physical Exam: General exam: Intubated and sedated, no acute distress HEENT: Pupils are equal and reactive to light Neck: No JVD, neck is supple trachea is midline Respiratory system: Clear breath sounds bilaterally. Gastrointestinal: Abdomen is soft, non distended, non tender, bowel sounds are present CVS: Regular rate and rhythm. No murmurs, rubs or gallops Musculoskeletal: No joint or muscle tenderness Extremities: Non tender, no edema, peripheral pulses are present Neuro: Intubated and sedated Skin: No rashes Results & Data ([facility]) Vital Signs (Past 12 Hours) Vital Signs Temp Pulse Resp BP Pulse Ox 02/04/20 08:58 92 H 95/69 L 97 02/04/20 08:29 117 H 98/65 L 96 02/04/20 08:00 92 H 02/04/20 07:58 126/78 98 02/04/20 07:40 96 H 12 98 02/04/20 07:28 36.5 C 92 H 122/76 99 02/04/20 06:59 111 H 135/82 98 02/04/20 06:23 68 136/86 98 02/04/20 06:13 39 L 72/47 L 94 02/04/20 06:09 59 L 66/43 L 96 02/04/20 06:00 86 97 02/04/20 05:58 81 95/68 L 97 02/04/20 05:28 94 H 100/68 97 02/04/20 05:20 12 02/04/20 04:58 94 H 104/71 97 02/04/20 04:28 96 H 105/81 98 02/04/20 03:58 36.6 C 92 H 94/62 L 94 02/04/20 03:28 69 96/61 L 96 02/04/20 02:58 74 94/60 L 97 02/04/20 02:28 100 H 82/62 L 94 02/04/20 02:10 99 H 16 97 02/04/20 01:58 69 101/69 97 02/04/20 01:28 90 105/71 98 02/04/20 00:58 97 H 115/82 99 02/04/20 00:28 115 H 94/68 L 96 02/03/20 23:58 37 C 112 H 109/77 97 02/03/20 23:28 92 H 94/65 L 95 02/03/20 22:58 97 H 107/77 98 02/03/20 22:55 117 H 16 98 02/03/20 22:28 100 H 124/86 100 Laboratory Results 02/04/20 03:58 02/04/20 02/04/20 03:58 03:58 WBC 16.14 H RBC 3.41 L MCV 97.1 MCH 32.3 MCHC 33.2 RDW Std Deviation 54.9 H RDW Coeff of Karyna 15.6 H Plt Count 99 L MPV 10.3 Phosphorus 2.8
--- NOTE | 2020-02-04 10:53 | Neurology Progress Note ---
Date of Service February 04, 2020 Assessment & Plan (1) Gram-negative bacteremia: (2) Septic shock due to urinary tract infection: (3) Altered mental status: Susan Hyatt is an 89 yo woman w/ PMH of atrial flutter on Eliquis at home, CHF and history of UTIs who presented to [facility] on 02/01 after being found unresponsive by family. # AMS after possible seizure: most likely 2/2 urosepsis with hypermagnesemia and uremia/ARF. No sign of large territory infarct or ICH on CTH from 02/02/20. Would complete work-up for AMS as below. Initial EEG on 02/02 was c/f ictal-interictal pattern of NCSE. Loaded with vimpat 150mg on 02/02 and started on vimpat 75mg bid. Repeat EEG on 02/03 shows resolution of ictal-interictal pattern with addition of vimpat, still abnormal but c/w toxic-metabolic encephalopathy from underlying urosepsis. - obtain MRI brain w/o contrast when able to r/o brainstem infarct or other underlying lesion given c/f possible seizure at home - AEDs: continue vimpat 75mg bid, hold further propofol gtt at this time as EEG has improved - treat infections as already doing per primary team - amiodarone and gabapentin levels pending - SBT daily, wean to extubate as tolerated - if needed, could transition to keppra 500mg bid as renal function improves Thank you for this interesting consult. Plan of care discussed with primary team. Please call or text with questions. Dr Nielsen will take over care on 02/04. (4) Non-convulsive status epilepticus: Admission and Anticipated Discharge Date Admission Date: February 02, 2020 Subjective EEG performed yesterday (02/02) afternoon showed runs of 1-2 Hz GPDs (on the ictal-interictal spectrum). Bolused 150mg vimpat on 02/02 pm and started on 75mg bid. Nursing reported that pt was reaching for ETT earlier in the morning. Repeat EEG this morning improved, ictal-interictal pattern has resolved with addition of vimpat. She was more alert this morning, opened eyes and tracked examiner. Inconsistently followed commands. Review of Systems Review of Systems: Unobtainable due to endotracheal tube and Unobtainable due to reduced consciousness Results & Data ([facility]) Vital Signs (Past 12 Hours) Vital Signs Temp Pulse Resp BP Pulse Ox 02/04/20 08:58 92 H 95/69 L 97 02/04/20 08:29 117 H 98/65 L 96 02/04/20 08:00 92 H 02/04/20 07:58 126/78 98 02/04/20 07:40 96 H 12 98 02/04/20 07:28 36.5 C 92 H 122/76 99 02/04/20 06:59 111 H 135/82 98 02/04/20 06:23 68 136/86 98 02/04/20 06:13 39 L 72/47 L 94 02/04/20 06:09 59 L 66/43 L 96 02/04/20 06:00 86 97 02/04/20 05:58 81 95/68 L 97 02/04/20 05:28 94 H 100/68 97 02/04/20 05:20 12 02/04/20 04:58 94 H 104/71 97 02/04/20 04:28 96 H 105/81 98 02/04/20 03:58 36.6 C 92 H 94/62 L 94 02/04/20 03:28 69 96/61 L 96 02/04/20 02:58 74 94/60 L 97 02/04/20 02:28 100 H 82/62 L 94 02/04/20 02:10 99 H 16 97 02/04/20 01:58 69 101/69 97 02/04/20 01:28 90 105/71 98 02/04/20 00:58 97 H 115/82 99 02/04/20 00:28 115 H 94/68 L 96 02/03/20 23:58 37 C 112 H 109/77 97 02/03/20 23:28 92 H 94/65 L 95 02/03/20 22:58 97 H 107/77 98 02/03/20 22:55 117 H 16 98 Exam (Neuro) Physical Exam: General Exam: GEN: intubated, has received minimal sedation CV: bradycardic, + peripheral edema PULM: intubated Neuro Exam: MS: Eyes to voice. Intubated hence unable to answer orientation questions or assess speech/cognition. No neglect. Intermittently follows commands. CN: Positive blink to threat bilaterally. Patient kept closing her eyes so unable to view optic disc on fundoscopic exam. PERRLA OU. Eyes midline and would move appropriately with horizontal head movements. Face symmetric on ETT. Hearing intact to conversation. Positive cough and gag. MOTOR: Normal bulk, decreased tone. Wiggles fingers, did not wiggle toes. REFLEXES: 1+ at biceps, brachioradialis, trace patella and absent Achilles bilaterally. Toes mute bilaterally. 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
--- NOTE | 2020-02-04 10:56 | Electrocardiogram Report ---
Test Reason : Blood Pressure : / mmHG Vent. Rate : 092 BPM Atrial Rate : 104 BPM P-R Int : 000 ms QRS Dur : 094 ms QT Int : 346 ms P-R-T Axes : 000 -15 -42 degrees QTc Int : 427 ms Poor data quality, interpretation may be adversely affected Atrial fibrillation Possible Inferior infarct , age undetermined Abnormal ECG When compared with ECG of 04-FEB-2020 06:29, (unconfirmed) QT has lengthened Confirmed by Jorge Crowe ([id number]) on 02/04/2020 10:56:07 AM Referred By: REFERRED SELF Confirmed By:Jorge Crowe
--- NOTE | 2020-02-04 10:56 | Electrocardiogram Report ---
Test Reason : Blood Pressure : / mmHG Vent. Rate : 081 BPM Atrial Rate : 090 BPM P-R Int : 000 ms QRS Dur : 088 ms QT Int : 310 ms P-R-T Axes : 000 -07 -10 degrees QTc Int : 360 ms Poor data quality, interpretation may be adversely affected Atrial fibrillation Abnormal ECG When compared with ECG of 02-FEB-2020 08:37, Atrial fibrillation now present Confirmed by Jorge Crowe ([id number]) on 02/04/2020 10:55:58 AM Referred By: REFERRED SELF Confirmed By:Jorge Crowe
--- NOTE | 2020-02-04 11:06 | Electroencephalogram ---
EEG Procedure Note Date of Service February 04, 2020 Start / End Times Start Time: 9:07am End Time: 9:27am Referring Physician Rachel Small History on ictal-interictal spectrum on 02/02, s/p vimpat load Home Medication List Home Medications Medication Instructions Recorded Confirmed Type Stool Softener 4 cap PO QPM 02/02/20 02/02/20 History amiodarone [Pacerone] 200 mg PO QAM 02/02/20 02/02/20 History apixaban [Eliquis] 5 mg PO BID 02/02/20 02/02/20 History aspirin [Aspirin Low Dose] 81 mg PO QAM 02/02/20 02/02/20 History gabapentin 300 mg PO TID 02/02/20 02/02/20 History hydrochlorothiazide 25 mg PO QAM 02/02/20 02/02/20 History xojoolhg-xre-GN-lycopen-lutein 1 tab PO QAM 02/02/20 02/02/20 History [Centrum Silver] Inpatient Medication List Fentanyl Citrate (Fentanyl Drip) 1,250 mcg in 250 mls @ 0 mls/hr IV .Q0M [facility]; Protocol Stop: 02/16/20 08:59 Last Admin: 02/03/20 09:31 Dose: Not Given Documented by: [id number] Titration: 02/03/20 08:54 Dose: 0 mcg/hr, 0 mls/hr Documented by: [id number] Titration: 02/03/20 07:26 Dose: 25 mcg/hr, 5 mls/hr Documented by: [id number] Cosigned by: [id number] Titration: 02/02/20 19:00 Dose: 25 mcg/hr, 5 mls/hr Documented by: [id number] Cosigned by: [id number] Admin: 02/02/20 09:01 Dose: 25 mcg/hr, 5 mls/hr Documented by: [id number] Cosigned by: [id number] Norepinephrine Bitartrate 8 mg (/ Dextrose) 508 mls @ 0 mls/hr IV .Q0M [facility]; Protocol Stop: 03/03/20 11:44 Last Titration: 02/04/20 09:44 Dose: 0 mcg/kg/min, 0 mls/hr Documented by: [id number] Titration: 02/04/20 08:00 Dose: 0.01 mcg/kg/min, 2.7 mls/hr Documented by: [id number] Titration: 02/04/20 07:19 Dose: 0.025 mcg/kg/min, 6.8 mls/hr Documented by: [id number] Cosigned by: [id number] Titration: 02/04/20 06:35 Dose: 0.025 mcg/kg/min, 6.8 mls/hr Documented by: [id number] Titration: 02/04/20 06:10 Dose: 0.05 mcg/kg/min, 13.5 mls/hr Documented by: [id number] Titration: 02/04/20 04:00 Dose: 0 mcg/kg/min, 0 mls/hr Documented by: [id number] Titration: 02/03/20 23:00 Dose: 0.01 mcg/kg/min, 2.7 mls/hr Documented by: [id number] Titration: 02/03/20 20:00 Dose: 0.02 mcg/kg/min, 5.4 mls/hr Documented by: [id number] Titration: 02/03/20 19:07 Dose: 0.01 mcg/kg/min, 2.7 mls/hr Documented by: [id number] Cosigned by: [id number] Titration: 02/03/20 18:37 Dose: 0.01 mcg/kg/min, 2.7 mls/hr Documented by: [id number] Admin: 02/03/20 18:17 Dose: 0.02 mcg/kg/min, 5.4 mls/hr Documented by: [id number] Cosigned by: [id number] Titration: 02/03/20 18:17 Dose: 0.02 mcg/kg/min, 5.4 mls/hr Documented by: [id number] Cosigned by: [id number] Titration: 02/03/20 11:45 Dose: 0.02 mcg/kg/min, 5.4 mls/hr Documented by: [id number] Titration: 02/03/20 11:21 Dose: 0.01 mcg/kg/min, 2.7 mls/hr Documented by: [id number] Titration: 02/03/20 10:30 Dose: 0.03 mcg/kg/min, 8.1 mls/hr Documented by: [id number] Titration: 02/03/20 08:00 Dose: 0.05 mcg/kg/min, 13.5 mls/hr Documented by: [id number] Titration: 02/03/20 07:26 Dose: 0.075 mcg/kg/min, 20.3 mls/hr Documented by: [id number] Cosigned by: [id number] Titration: 02/03/20 01:15 Dose: 0.075 mcg/kg/min, 20.3 mls/hr Documented by: [id number] Titration: 02/03/20 00:00 Dose: 0.1 mcg/kg/min, 27.1 mls/hr Documented by: [id number] Admin: 02/02/20 22:08 Dose: 0.15 mcg/kg/min, 40.6 mls/hr Documented by: [id number] Cosigned by: [id number] Pantoprazole Sodium 40 mg/ (Syringe) 10 mls @ 5 mls/min IV DAILY@1600 [facility] Stop: 03/03/20 15:59 Last Admin: 02/03/20 17:31 Dose: 5 mls/min Documented by: [id number] Admin: 02/02/20 16:09 Dose: 5 mls/min Documented by: [id number] Piperacillin Sod/Tazobactam Sod (Zosyn) 4.5 gm in 120 mls @ 30 mls/hr IV Q12H [facility]; Protocol Stop: 02/12/20 15:59 Last Infusion: 02/04/20 09:45 Dose: 0 mls/hr Documented by: [id number] Admin: 02/04/20 03:33 Dose: 30 mls/hr Documented by: [id number] Infusion: 02/03/20 21:42 Dose: 0 mls/hr Documented by: [id number] Admin: 02/03/20 17:31 Dose: 30 mls/hr Documented by: [id number] Infusion: 02/03/20 09:32 Dose: 0 mls/hr Documented by: [id number] Admin: 02/03/20 04:25 Dose: 30 mls/hr Documented by: [id number] Infusion: 02/02/20 20:15 Dose: 0 mls/hr Documented by: [id number] Admin: 02/02/20 16:09 Dose: 30 mls/hr Documented by: [id number] Vasopressin 20 units/ Sodium (Chloride) 101 mls @ 12.12 mls/hr IV .Q8H20M [facility] Stop: 03/03/20 23:29 Last Admin: 02/04/20 09:46 Dose: 0.04 unit/min, 12.1 mls/hr Documented by: [id number] Cosigned by: [id number] Infusion: 02/04/20 08:36 Dose: 0.04 unit/min, 12.1 mls/hr Documented by: [id number] Cosigned by: [id number] Infusion: 02/04/20 07:18 Dose: 0.04 unit/min, 12.1 mls/hr Documented by: [id number] Cosigned by: [id number] Admin: 02/04/20 00:15 Dose: 0.04 unit/min, 12.1 mls/hr Documented by: [id number] Cosigned by: [id number] Infusion: 02/04/20 00:15 Dose: 0.04 unit/min, 12.1 mls/hr Documented by: [id number] Cosigned by: [id number] Infusion: 02/03/20 19:06 Dose: 0.04 unit/min, 12.1 mls/hr Documented by: [id number] Cosigned by: [id number] Admin: 02/03/20 17:26 Dose: 0.04 unit/min, 12.1 mls/hr Documented by: [id number] Cosigned by: [id number] Infusion: 02/03/20 15:01 Dose: 0.04 unit/min, 12.1 mls/hr Documented by: [id number] Cosigned by: [id number] Infusion: 02/03/20 07:26 Dose: 0.04 unit/min, 12.1 mls/hr Documented by: [id number] Cosigned by: [id number] Admin: 02/03/20 06:40 Dose: 0.04 unit/min, 12.1 mls/hr Documented by: [id number] Cosigned by: [id number] Infusion: 02/03/20 06:40 Dose: 0.04 unit/min, 12.1 mls/hr Documented by: [id number] Cosigned by: [id number] Admin: 02/02/20 23:47 Dose: 0.04 unit/min, 12.1 mls/hr Documented by: [id number] Cosigned by: [id number] Propofol (Diprivan) 1,000 mg in 100 mls @ 0 mls/hr IV .Q0M [facility]; Protocol Stop: 02/06/20 18:29 Last Titration: 02/04/20 09:09 Dose: 0 mcg/kg/min, 0 mls/hr Documented by: [id number] Titration: 02/04/20 07:18 Dose: 20 mcg/kg/min, 8.6 mls/hr Documented by: [id number] Cosigned by: [id number] Titration: 02/04/20 06:45 Dose: 20 mcg/kg/min, 8.6 mls/hr Documented by: [id number] Titration: 02/04/20 06:35 Dose: 10 mcg/kg/min, 4.3 mls/hr Documented by: [id number] Titration: 02/04/20 06:05 Dose: 0 mcg/kg/min, 0 mls/hr Documented by: [id number] Titration: 02/03/20 21:40 Dose: 15 mcg/kg/min, 6.5 mls/hr Documented by: [id number] Titration: 02/03/20 20:00 Dose: 10 mcg/kg/min, 4.3 mls/hr Documented by: [id number] Titration: 02/03/20 19:07 Dose: 5 mcg/kg/min, 2.2 mls/hr Documented by: [id number] Cosigned by: [id number] Admin: 02/03/20 18:45 Dose: 5 mcg/kg/min, 2.2 mls/hr Documented by: [id number] Cosigned by: [id number] Lacosamide 75 mg/ Sodium (Chloride) 57.5 mls @ 115 mls/hr IV Q12 [facility] Stop: 03/05/20 09:29 Last Admin: 02/04/20 09:45 Dose: 115 mls/hr Documented by: [id number] Potassium Chloride (K Robbi / Wtr) 10 meq in 100 mls @ 100 mls/hr IV Q1H [facility] Stop: 02/04/20 13:29 Last Admin: 02/04/20 09:47 Dose: 100 mls/hr Documented by: [id number] Insulin Aspart (Novolog Flexpen) 0 units SC Q4 [facility] Stop: 03/03/20 15:59 Last Admin: 02/04/20 08:13 Dose: Not Given Documented by: [id number] Cosigned by: [id number] Admin: 02/04/20 04:00 Dose: Not Given Documented by: [id number] Cosigned by: [id number] Admin: 02/04/20 00:15 Dose: Not Given Documented by: [id number] Cosigned by: [id number] Admin: 02/03/20 21:07 Dose: Not Given Documented by: [id number] Cosigned by: [id number] Admin: 02/03/20 17:53 Dose: Not Given Documented by: [id number] Cosigned by: [id number] Admin: 02/03/20 12:12 Dose: Not Given Documented by: [id number] Cosigned by: [id number] Admin: 02/03/20 09:21 Dose: Not Given Documented by: [id number] Cosigned by: [id number] Admin: 02/03/20 05:29 Dose: Not Given Documented by: [id number] Cosigned by: [id number] Admin: 02/03/20 05:27 Dose: Not Given Documented by: [id number] Cosigned by: [id number] Admin: 02/02/20 23:54 Dose: Not Given Documented by: [id number] Cosigned by: [id number] Admin: 02/02/20 21:00 Dose: Not Given Documented by: [id number] Cosigned by: [id number] Admin: 02/02/20 16:08 Dose: Not Given Documented by: [id number] Cosigned by: [id number] Discontinued Medications Albuterol (Duoneb) 3 ml NEB NOW STA Stop: 02/02/20 17:15 Last Admin: 02/02/20 17:17 Dose: Not Given Documented by: [id number] Sodium Chloride (Nss 1000ml) 1,000 mls @ 999 mls/hr IV .Q1H1M ONE Stop: 02/02/20 09:36 Last Infusion: 02/02/20 09:45 Dose: 0 mls/hr Documented by: [id number] Admin: 02/02/20 08:30 Dose: 999 mls/hr Documented by: [id number] Piperacillin Sod/Tazobactam Sod (Zosyn) 4.5 gm in 120 mls @ 240 mls/hr IV NOW ONE Stop: 02/02/20 10:06 Last Infusion: 02/02/20 11:15 Dose: 0 mls/hr Documented by: [id number] Admin: 02/02/20 09:53 Dose: 30 mls/hr Documented by: [id number] Sodium Chloride (Nss 1000ml) 1,000 mls @ 125 mls/hr IV .Q8H [facility] Stop: 03/03/20 09:44 Last Infusion: 02/02/20 13:29 Dose: 0 mls/hr Documented by: [id number] Admin: 02/02/20 09:46 Dose: 125 mls/hr Documented by: [id number] Fosphenytoin Sodium 1,000 mgpe (/ Sodium Chloride) 70 mls @ 420 mls/hr IV NOW STA Stop: 02/02/20 10:07 Last Infusion: 02/02/20 13:45 Dose: 0 mls/hr Documented by: [id number] Admin: 02/02/20 10:54 Dose: 25 mls/hr Documented by: [id number] Vancomycin HCl 1,500 mg/ (Sodium Chloride) 530 mls @ 200 mls/hr IV NOW ONE Stop: 02/02/20 14:38 Last Infusion: 02/02/20 15:00 Dose: 0 mls/hr Documented by: [id number] Admin: 02/02/20 12:17 Dose: 200 mls/hr Documented by: [id number] Norepinephrine Bitartrate 4 mg (/ Dextrose) 254 mls @ 27.089 mls/hr IV .Q9H23M STA; Protocol Stop: 02/02/20 21:01 Last Titration: 02/02/20 22:18 Dose: 0 mcg/kg/min, 0 mls/hr Documented by: [id number] Titration: 02/02/20 18:45 Dose: 0.1 mcg/kg/min, 27.1 mls/hr Documented by: [id number] Cosigned by: [id number] Titration: 02/02/20 17:00 Dose: 0.08 mcg/kg/min, 21.7 mls/hr Documented by: [id number] Titration: 02/02/20 13:31 Dose: 0.06 mcg/kg/min, 16.3 mls/hr Documented by: [id number] Titration: 02/02/20 12:30 Dose: 0.08 mcg/kg/min, 21.7 mls/hr Documented by: [id number] Titration: 02/02/20 12:15 Dose: 0.1 mcg/kg/min, 27.1 mls/hr Documented by: [id number] Admin: 02/02/20 11:50 Dose: 0.2 mcg/kg/min, 54.2 mls/hr Documented by: [id number] Cosigned by: [id number] Sodium Chloride (Nss 1000ml) 1,000 mls @ 125 mls/hr IV .Q8H [facility] Stop: 03/03/20 11:51 Last Admin: 02/02/20 13:05 Dose: Not Given Documented by: [id number] Doxycycline Hyclate 100 mg/ (Dextrose) 110 mls @ 55 mls/hr IV Q12H [facility] Stop: 02/09/20 11:59 Last Admin: 02/02/20 12:17 Dose: Not Given Documented by: [id number] Lactated Ringer's (Lr) 500 mls @ 999 mls/hr IV .Q31M ONE Stop: 02/02/20 13:36 Last Infusion: 02/02/20 13:05 Dose: 0 mls/hr Documented by: [id number] Admin: 02/02/20 12:30 Dose: 999 mls/hr Documented by: [id number] Lactated Ringer's (Lr) 500 mls @ 999 mls/hr IV .Q31M ONE Stop: 02/02/20 18:43 Last Infusion: 02/02/20 18:45 Dose: 0 mls/hr Documented by: [id number] Admin: 02/02/20 18:05 Dose: 999 mls/hr Documented by: [id number] Potassium Chloride (K Robbi / Wtr) 10 meq in 100 mls @ 100 mls/hr IV ONE ONE Stop: 02/03/20 09:29 Last Infusion: 02/03/20 10:40 Dose: 0 mls/hr Documented by: [id number] Admin: 02/03/20 09:31 Dose: 100 mls/hr Documented by: [id number] Potassium Chloride (K Robbi / Wtr) 20 meq in 100 mls @ 50 mls/hr IV ONE ONE Stop: 02/03/20 08:29 Last Infusion: 02/03/20 09:36 Dose: 0 mls/hr Documented by: [id number] Admin: 02/03/20 06:25 Dose: 50 mls/hr Documented by: [id number] Lacosamide 150 mg/ Sodium (Chloride) 65 mls @ 130 mls/hr IV ONCE ONE Stop: 02/03/20 18:29 Last Infusion: 02/03/20 18:51 Dose: 0 mls/hr Documented by: [id number] Admin: 02/03/20 18:18 Dose: 130 mls/hr Documented by: [id number] Dopamine HCl/Dextrose (Dopamine / D5w) 400 mg in 250 mls @ 13.444 mls/hr IV .[id number] [facility]; Protocol Stop: 03/05/20 06:14 Last Admin: 02/04/20 10:48 Dose: Not Given Documented by: [id number] Lactated Ringer's (Lr) 500 mls @ 999 mls/hr IV .Q31M ONE Stop: 02/04/20 09:43 Last Infusion: 02/04/20 10:47 Dose: 0 mls/hr Documented by: [id number] Admin: 02/04/20 09:45 Dose: 999 mls/hr Documented by: [id number] Lacosamide (Vimpat) 75 mg PO BID [facility] Stop: 03/05/20 08:59 Last Admin: 02/04/20 10:48 Dose: Not Given Documented by: [id number] Metoprolol Tartrate (Lopressor) 5 mg IV NOW STA Stop: 02/02/20 23:41 Last Admin: 02/02/20 23:59 Dose: 5 mg Documented by: [id number] Miscellaneous () Confirm Administered Dose 1 ea .ROUTE .STK-MED ONE Stop: 02/02/20 08:41 Last Admin: 02/02/20 09:53 Dose: 1 ea Documented by: [id number] Miscellaneous () 1 ea N/A NOW STA Stop: 02/02/20 08:47 Last Admin: 02/02/20 17:49 Dose: Not Given Documented by: [id number] Sodium Bicarbonate (Sodium Bicarbonate 8.4%) Confirm Administered Dose 100 meq .ROUTE .STK-MED ONE Stop: 02/02/20 11:42 Last Admin: 02/02/20 12:13 Dose: 100 meq Documented by: [id number] Description This is a 21 electrode EEG with a single channel dedicated to limited EKG. The electrodes were placed in accordance with the International 10-20 system. History: ictal-interictal spectrum on 02/02 EEG, s/p vimpat load and 12 hr brain rest with propofol Rx: propofol x~12hrs, vimpat 150mg load followed by 75mg bid Start/Stop: 9:07am-9:27am Attending reading: Rachel Small EEG Description: EEG background: Background was predominantly 4-6 Hz theta slowing with rare intermixed delta slowing and intermittently reaching up to 8Hz alpha. No well formed posterior dominant rhythm was observed. The EEG is continuous. There is variability and reactivity present. Activation and reactivity: Photic stimulation performed without any abnormalities noted. No photic driving observed. Hyperventilation was not performed as patient is intubated. Sleep: Patient was did not sleep during the recording. Epileptiform discharges: No epileptiform discharges were observed. Rhythmic and periodic patterns: Frequent, frontally-predominant generalized discharges with triphasic morphology. Periodic generalized discharges no longer present. Seizures: None Impression: This was an abnormal EEG given theta slowing and triphasic waves, most consistent with toxic-metabolic encephalopathy from underlying urosepsis. Resolution of GPDs that were on the ictal-interictal spectrum has occurred. No seizures or epileptiform discharges were seen. [facility] EEG Procedure Codes Indication for Procedure (1) Gram-negative bacteremia: (2) Septic shock due to urinary tract infection: (3) Altered mental status: (4) Non-convulsive status epilepticus: Neurology Neurology: [id number] EEG include record awake & drowsy
--- NOTE | 2020-02-04 12:20 | Hospitalist Progress Note ---
Date of Service February 04, 2020 Assessment & Plan (1) Altered mental status: 89 year old female with history of Atrial Flutter, CHF, presenting with unresponsiveness. ACUTE RESPIRATORY FAILURE, ALTERED MENTAL STATUS, POSSIBLY FROM: on mechanical ventilation weaning trial in progress ENCEPHALOPATHY SECONDARY TO SEVERE SEPSIS, GRAM NEGATIVE BACILLI BACTEREMIA, POSSIBLE PNEUMONIA, URINARY TRACT INFECTION sepsis protocol blood cultures: 2/2 gram neg bacilli repeat blood cultures: pending urine culture: pending sputum culture: pending nasal MRSA: negative Covid test: negative on Zosyn Day 3 restless this AM Precedex started R/O SEIZURE Cerebyx given CT head: negative for acute process EEG ordered SEPTIC SHOCK given IV fluids was given Levophed, Vasopressin being weaned off management of sepsis per above ACUTE RENAL FAILURE unknown baseline crea will get records from recent hospitalization in [place] Nephro consulted crea improved from 2.9 to 1.75 good urine output continue to monitor RESPIRATORY ACIDOSIS, FROM HYPERCAPNEA management per #1 ATRIAL FLUTTER on Amiodarone, Eliquis hold for now in light of acute renal failure HISTORY OF CONGESTIVE HEART FAILURE mentioned in initial outpatient Cardiology Visit will get records from recent hospitalization in [place] currently on the dry side will also obtain echo SACRAL DECUBITUS ULCER, PRESENT ON ADMISSION does not appear infected daily wound care DVT prophylaxis SCDs Disposition lives with family at home Admission and Anticipated Discharge Date Admission Date: February 02, 2020 Subjective ff up for respiratory failure, sepsis, UTI, Pneumonia restless this AM, Precedex started on mech vent, off sedation being weaned off Vasopressin not in distress, opens eyes occasionally, tracks examiner, does not follow commands no other issues Review of Systems Review of Systems: All systems reviewed & are unremarkable except as noted in HPI & below Physical Exam Physical Exam: General- not in distress, breathing with no effort or accessory muscle use Eyes- anicteric ET tube in place Neck- no JVD Lungs- mild rhonchi anteriorly Heart- normal rate, regular rhythm; no murmurs Abdomen- normal bowel sounds, nondistended, soft, nontender Extremities- no pretibial edema, no calf tenderness Neuro- alert, oriented x 3; no gross focal neurologic deficits Skin- warm & dry Results & Data Results & Data ([facility]) Vital Signs (Past 12 Hours) Vital Signs Temp Pulse Resp BP Pulse Ox 02/04/20 11:37 110 H 103/76 98 02/04/20 11:32 106 H 105/77 98 02/04/20 11:27 103 H 115/63 97 02/04/20 11:22 98 H 98/31 L 97 02/04/20 11:18 108 H 80/51 L 96 02/04/20 11:13 105 H 83/54 L 97 02/04/20 11:07 98 H 95/62 L 98 02/04/20 11:02 102 H 90/59 L 98 02/04/20 10:57 99 H 94/62 L 99 02/04/20 10:50 101 H 34 H 98 02/04/20 10:29 95 H 110/71 99 02/04/20 09:59 107 H 97/90 L 98 02/04/20 09:56 105 H 115/75 98 02/04/20 09:49 95 H 121/77 99 02/04/20 09:28 98 H 117/72 98 02/04/20 08:58 92 H 95/69 L 97 02/04/20 08:29 117 H 98/65 L 96 02/04/20 08:00 92 H 02/04/20 07:58 126/78 98 02/04/20 07:40 96 H 12 98 02/04/20 07:28 36.5 C 92 H 122/76 99 02/04/20 06:59 111 H 135/82 98 02/04/20 06:23 68 136/86 98 02/04/20 06:13 39 L 72/47 L 94 02/04/20 06:09 59 L 66/43 L 96 02/04/20 06:00 86 97 02/04/20 05:58 81 95/68 L 97 02/04/20 05:28 94 H 100/68 97 02/04/20 05:20 12 02/04/20 04:58 94 H 104/71 97 02/04/20 04:28 96 H 105/81 98 02/04/20 03:58 36.6 C 92 H 94/62 L 94 02/04/20 03:28 69 96/61 L 96 02/04/20 02:58 74 94/60 L 97 02/04/20 02:28 100 H 82/62 L 94 02/04/20 02:10 99 H 16 97 02/04/20 01:58 69 101/69 97 04/26/20 01:28 90 105/71 98 04/26/20 00:58 97 H 115/82 99 02/04/20 00:28 115 H 94/68 L 96 (1) Altered mental status Altered mental status type: unspecified Qualified Code(s): R41.82 - Altered mental status, unspecified
[2020-02-04] MEDS: HEPARIN SOD 5,000 UNIT/0.5 ML VIAL SQ SCH ×2 (13:19→20:44)
[2020-02-04 14:45] LABS: BUN Creatinine Ratio 25.8 (10-20); Calcium 8.1 mg/dl (8.5-10.1); Est GFR (African American) 33.5; Est GFR (Non-African American) 28.9
--- NOTE | 2020-02-04 15:47 | Magnetic Resonance Report ---
Study: MRI brain HISTORY: Seizure. COMPARISON: CT brain 02/02/2020 FINDINGS: Diffusion images show no evidence for an acute ischemic event. There are findings of genera lized atrophy of involving the cerebellar as well as cerebral hemispheres. Moderate chronic small ves osman change is present. Mild mucosal thickening of the mastoid air cells. No evidence for midline shift. Hyperostosis frontalis internus is noted. This is considered benign. IMPRESSION: 1. Cerebellar as well as cerebral atrophy. 2. No evidence for an acute ischemic insult. Electronically signed by: Tirso Holm M.D. 02/04/2020 3:46 PM
[2020-02-04] MEDS: PANTOprazole 40 MG in SYRINGE 0 ML IV SCH (17:22)
[2020-02-04] MEDS ORDERED: PEPTAMEN INTENSE VHP 1.0 CAL 1,000 ML BAG OG SCH (20:30)
--- NOTE | 2020-02-04 20:53 | XRay Report ---
XR KUB/Abdomen 1 view CLINICAL HISTORY: NG tube placement tube position COMPARISON STUDY: No previous studies for comparison. FINDINGS: Nasogastric tube within the mid stomach. IMPRESSION: Nasogastric tube within the mid stomach. ACT 112: Negative or not required by law. The above report was generated using voice recognition software. It may contain grammatical, syntax or spelling errors. Electronically signed by: Tirso Holm M.D. 02/04/2020 8:52 PM
[2020-02-05] MEDS: INSULIN ASPART 100 UNITS/ML 3 ML PEN SC SCH ×6 (00:08→23:38)
[2020-02-05] MEDS ORDERED: fentaNYL citrate 100 MCG/2 ML VIAL IV STA (00:22)
[2020-02-05] MEDS: VASOPRESSIN 20 UNITS in 0.9 % SODIUM CHLORIDE 100 ML IV SCH ×3 (03:24→15:23)
[2020-02-05 04:35] LABS: BUN Creatinine Ratio 27.6 (10-20); Calcium 7.7 mg/dl (8.5-10.1); Creatinine Clr Calc Pharmacy 26.6 ml/min; Est GFR (African American) 39.9; Est GFR (Non-African American) 34.4; Magnesium 2.2 mg/dl (1.8-2.4); Potassium 3.7 mmol/L (3.5-5.1)
[2020-02-05] MEDS ORDERED: POTASSIUM CHLORIDE 20 MEQ/15 ML UDC PO STA (04:56)
[2020-02-05] MEDS: HEPARIN SOD 5,000 UNIT/0.5 ML VIAL SQ SCH ×3 (05:10→23:24)
[2020-02-05 05:40] LABS: Hematocrit (blood only) 32.3 % (37-47); Hemoglobin 11.2 g/dL (12.0-16.0); Mean Corpuscular Hemoglobin 33.8 pg (25-34); Mean Corpuscular Hgb Conc 34.7 g/dL (32-36); Mean Corpuscular Volume 97.6 fL (80-100); RDW Coefficient of Variation 15.4 % (11.5-14.5); RDW Standard Deviation 55.3 fL (36.4-46.3); Red Blood Count 3.31 M/uL (4.2-5.4); White Blood Count 12.63 K/uL (4.8-10.8)
[2020-02-05 06:07] LABS: Platelet Count 93 K/uL (130-400)
[2020-02-05 06:08] LABS: Basophils # (auto) 0.02 K/uL (0-0.2); Basophils % (auto) 0.2 %; Eosinophils # (auto) 0.02 K/uL (0-0.5); Eosinophils % (auto) 0.2 %; Immature Granulocytes # (auto) 0.06 K/uL (0.00-0.02); Immature Granulocytes % (auto) 0.5 %; Lymphocytes # (auto) 2.21 K/uL (1.2-3.4); Lymphocytes % (auto) 17.5 %; Monocytes # (auto) 0.51 K/uL (0.11-0.59); Neutrophils # (auto) 9.81 K/uL (1.4-6.5); Neutrophils % (auto) 77.6 %
[2020-02-05 06:17] LABS: iSTAT Allen Test Pass; iSTAT Arterial Blood Gas HCO3 23 meg/L (19-24); iSTAT Arterial Blood Gas pCO2 33 mmHg (35-46); iSTAT Arterial Blood Gas pH 7.45 (7.35-7.45); iSTAT Arterial Blood Gas pO2 92 mmHg (80-95); iSTAT Carbon Dioxide 24 mmol/L (24-31); iSTAT FiO2 30 %; iSTAT Site R Radial
--- NOTE | 2020-02-05 06:56 | XRay Report ---
XR chest 1V portable CLINICAL HISTORY: Respiratory failure COMPARISON STUDY: 02/03/2020 FINDINGS: The heart remains enlarged. There is a nasogastric tube which passes into the stomach. Ther e is an endotracheal tube positioned 31 mm above the john. There are persistent bilateral interstit ial pulmonary opacities with a right upper lung zone and peripheral left lung distribution. Postsurgi viki changes involve the left shoulder. Trace pleural effusions are suspected.[ IMPRESSION: Persistent bilateral interstitial pulmonary opacities. ACT 112: Negative or not required by law. Electronically signed by: Kee Jessica M.D. 02/05/2020 6:55 AM
[2020-02-05] MEDS: PIPERACILLIN/TAZOBACTAM 4.5 GM/120 ML BAG IV SCH (08:09)
--- NOTE | 2020-02-05 10:01 | Neurology Progress Note ---
Date of Service February 05, 2020 Assessment & Plan (1) Encephalopathy acute: Multifactorial encephalopathy although patient appears to be modestly improved this morning. There was some initial concern for nonconvulsive seizures on this patient's initial EEG. No electrographic evidence of seizures on follow-up EEG, however. Patient remains on an anticonvulsant, Vimpat, that was started during this hospitalization. At this point, I would recommend continuing with Vimpat at the current dosage. Would plan on switching from IV Vimpat to p.o. formulation when patient able to reliably swallow. Need for long-term anticonvulsant therapy can be further evaluated in the outpatient setting. Admission and Anticipated Discharge Date Admission Date: February 02, 2020 Subjective Follow-up for encephalopathy The patient is an 89-year-old female who was admitted with unresponsiveness and altered mental status. She has acute respiratory failure and is on the mechanical ventilator in the ICU. History also notable for sepsis, UTI, suspected pneumonia, and acute renal failure. The patient has been evaluated by Dr. Chang, neurology, for assistance regarding her persistent altered mental status. The patient had an EEG completed February 02 that revealed generalized slowing as well as periodic discharges. These findings were felt to be consistent with both encephalopathy as well as some concern for possible subclinical seizure activity. The patient has been treated with an anticonvulsant, Vimpat. A follow-up EEG completed yesterday suggested resolution of the previous identified generalized periodic discharges. However, there are still changes suggestive of encephalopathy, including triphasic waves. A brain MRI completed yesterday was negative for acute or subacute infarct. The study did reveal generalized atrophy and a moderate degree of chronic small vessel ischemic disease. I reviewed the images as well as the radiologist interpretation of this test. This morning, the was observed while in the ICU, on the mechanical ventilator. Nursing was at bedside. The patient appeared to be alert and would track the examiner. She would attempt to follow simple commands. Not really able to adequately respond to questions for further assessment, however. Review of Systems Review of Systems: Unobtainable due to endotracheal tube Results & Data ([facility]) Vital Signs (Past 12 Hours) Vital Signs Temp Pulse Resp BP Pulse Ox 02/05/20 09:06 105 H 115/74 97 02/05/20 09:00 105 H 97 02/05/20 08:36 103 H 112/73 97 02/05/20 08:30 103 H 95 02/05/20 08:06 91 H 101/71 97 02/05/20 08:00 36.8 C 93 H 97 02/05/20 07:36 101 H 93/66 L 97 02/05/20 07:30 106 H 96 02/05/20 07:06 106 H 105/66 97 02/05/20 07:03 106 H 22 97 02/05/20 07:00 106 H 96 02/05/20 06:06 109 H 17 99/65 L 96 02/05/20 05:50 98 H 14 96 02/05/20 05:36 109 H 14 82/52 L 95 02/05/20 05:06 109 H 13 86/49 L 95 02/05/20 05:00 109 H 15 95 02/05/20 04:36 109 H 15 90/59 L 95 02/05/20 04:33 108 H 13 96/63 L 95 02/05/20 04:06 36.7 C 86 13 114/65 96 02/05/20 03:36 93 H 14 112/76 95 02/05/20 03:06 86 13 113/77 96 02/05/20 02:36 87 12 112/79 96 02/05/20 02:10 87 12 96 02/05/20 02:06 90 12 112/80 95 02/05/20 01:36 85 12 109/75 96 02/05/20 01:06 90 12 117/72 96 02/05/20 00:36 87 17 115/75 96 02/05/20 00:06 36.8 C 92 H 16 121/77 95 02/04/20 23:30 87 13 109/76 96 02/04/20 23:06 101 H 16 113/76 96 02/04/20 22:36 102 H 15 122/75 96 02/04/20 22:35 94 H 13 96 02/04/20 22:00 91 H 120/70 96 Laboratory Results WBC 12.63, hemoglobin 11.2, hematocrit 32.3, platelet count 93, sodium 139, potassium 3.7, BUN 38, creatinine 1.36, glucose 127, calcium 7.7, magnesium 2.2, and ammonia level from February 01 was 30.3 Diagnostic Findings Brain MRI reviewed, both images and radiologist report, as described above. Patient's recent two EEGs reviewed, as described above. Exam (Neuro) Physical Exam: As above, the patient was examined while in the intensive care unit, on the mechanical ventilator. Her eyes are open and she will track the examiner. She appears to be able to follow simple commands such as lifting her hands up out of the bed. Otherwise, interaction is fairly limited. Pupils are equal round and reactive to light. Eye movements intact. There is no gaze preference. She does appear to move the left arm and leg in a more spontaneous fashion in either the right arm or leg. The left arm does have a restraint applied. No abnormal movements such as tremors or dystonic posturing observed. Muscle tone normal. Coding Level of Care Code 39766 Subseq Hosp Care Lvl 3 Diagnoses Encephalopathy acute G93.40
[2020-02-05] MEDS: SODIUM CHLORIDE 0.9% IV SCH ×2 (10:05→20:46)
[2020-02-05] MEDS: LACOSAMIDE IV SCH ×2 (10:05→20:46)
[2020-02-05] MEDS ORDERED: cefTRIAXone SODIUM 2,000 MG in DEXTROSE 5% 50 ML IV ONE (11:00)
--- NOTE | 2020-02-05 12:00 | Critical Care Progress Note ---
Date of Service February 05, 2020 Assessment & Plan (1) S/P admission to ICU (intensive care unit): Reason Critically Ill: 89-year-old female with Proteus bacteremia PLAN: Neuro: Sedation and analgesia - Wean for extubation Resp: Respiratory failure - Kyphosis -Discussed with family terminal extubation no reintubation in event of respiratory insufficiency CV: Reported tachybradycardia syndrome, history of A. fib Fluids/Renal: Acute kidney injury: Improving ID: Proteus bacteremia -De-escalate to Rocephin -Repeat blood culture negative GI/Nutrition: Was tolerating tube feeds -N.p.o. for interim Heme: Thrombocytopenia -Suspect secondary to sepsis DVT prophylaxis: Heparin Endocrine: ICU hyperglycemia protocol Vascular access: Femoral central line, patient still needing intermittent vasop ressin will leave the line for today Code Status: DNR/DNI in event of cardiac arrest and respiratory insufficiency, no escalation of care (invasive high risk procedures) Disposition: ICU (2) Acute hypoxemic respiratory failure: (3) Acute encephalopathy: (4) Diarrhea: (5) Leukocytosis: (6) Atrial flutter: (7) Lactic acidosis: (8) CHF (congestive heart failure): (9) Complicated UTI (urinary tract infection): (10) Septic shock due to urinary tract infection: (11) Gram-negative bacteremia: (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 With discussion of respiratory insufficiency all were in agreement that she would not want reintubated for respiratory insufficiency. All were also in agreement of no escalation of care in terms of high risk procedures or invasive procedures. Family was interested in discussing disposition if she improves, we briefly discussed pulsed form as well as subacute rehab and longterm facilities. Anticipate that picture will become much more clear in the next 24 to 48 hours. And will cautiously optimistic that the patient should continue to improve and will require these services. Subjective No overnight events, following commands this morning appears to desire tube removed Review of Systems Review of Systems: Unobtainable due to endotracheal tube Physical Exam Physical Exam: General: Alert. nontoxic. Significant kyphosis Skin: Warm, dry, Head: Atraumatic Ears, nose, mouth and throat: Obscured by endotracheal tube Cardiovascular: Normal peripheral perfusion Respiratory: Coarse sounds bilaterally Gastrointestinal: Non distended Musculoskeletal: No deformity Results & Data Results & Data ([facility]) Vital Signs (Past 12 Hours) Vital Signs Temp Pulse Resp BP Pulse Ox 02/05/20 11:15 94 H 21 97 02/05/20 10:00 106 H 96 02/05/20 09:36 106 H 104/73 97 02/05/20 09:30 106 H 97 02/05/20 09:06 105 H 115/74 97 02/05/20 09:00 105 H 97 02/05/20 08:36 103 H 112/73 97 02/05/20 08:30 103 H 95 02/05/20 08:06 91 H 101/71 97 02/05/20 08:00 36.8 C 93 H 97 02/05/20 07:36 101 H 93/66 L 97 02/05/20 07:30 106 H 96 02/05/20 07:06 106 H 105/66 97 02/05/20 07:03 106 H 22 97 02/05/20 07:00 106 H 96 02/05/20 06:06 109 H 17 99/65 L 96 02/05/20 05:50 98 H 14 96 02/05/20 05:36 109 H 14 82/52 L 95 02/05/20 05:06 109 H 13 86/49 L 95 02/05/20 05:00 109 H 15 95 02/05/20 04:36 109 H 15 90/59 L 95 02/05/20 04:33 108 H 13 96/63 L 95 02/05/20 04:06 36.7 C 86 13 114/65 96 02/05/20 03:36 93 H 14 112/76 95 02/05/20 03:06 86 13 113/77 96 02/05/20 02:36 87 12 112/79 96 02/05/20 02:10 87 12 96 02/05/20 02:06 90 12 112/80 95 02/05/20 01:36 85 12 109/75 96 02/05/20 01:06 90 12 117/72 96 02/05/20 00:36 87 17 115/75 96 02/05/20 00:06 36.8 C 92 H 16 121/77 95 Laboratory Results 02/05/20 02/05/20 02/05/20 Range/Units 08:29 06:04 04:08 WBC (4.8-10.8) K/uL RBC (4.2-5.4) M/uL Hgb (12.0-16.0) g/dL Hct (37-47) % MCV (80-100) fL MCH (25-34) pg MCHC (32-36) g/dL RDW Std Deviation (36.4-46.3) fL RDW Coeff of Karyna (11.5-14.5) % Plt Count (130-400) K/uL MPV (7.4-10.4) fL Immature Gran % (Auto) % Neut % (Auto) % Lymph % (Auto) % Latimer % (Auto) % Eos % (Auto) % Baso % (Auto) % Immature Gran # (Auto) (0.00-0.02) K/uL Neut # (Auto) (1.4-6.5) K/uL Lymph # (Auto) (1.2-3.4) K/uL Latimer # (Auto) (0.11-0.59) K/uL Eos # (Auto) (0-0.5) K/uL Baso # (Auto) (0-0.2) K/uL Sample Site R Radial POC pH 7.45 (7.35-7.45) POC pCO2 33 L (35-46) mmHg POC pO2 92 (80-95) mmHg POC HCO3 23 (19-24) kemal/L POC Total CO2 24 (24-31) mmol/L POC Base Excess -1.0 (-9-1.8) kemal/L POC ABG O2 Sat 98.0 H (90-95) % Justin Test Pass O2 Delivery Device Ventilator POC FiO2 30 % PEEP 5 Sodium (136-145) mmol/L Potassium (3.5-5.1) mmol/L Chloride (98-107) mmol/L Carbon Dioxide (21-32) mmol/L Anion Gap (3-11) BUN (7-18) mg/dl Creatinine (0.6-1.2) mg/dl Est Cr Clr Drug Dosing ml/min Est GFR ( Amer) Est GFR (Non-Af Amer) BUN/Creatinine Ratio (10-20) Glucose (70-99) mg/dl POC Glucose (other) 73 118 H (70-99) mg/dl Calcium (8.5-10.1) mg/dl Phosphorus (2.5-4.9) mg/dl Magnesium (1.8-2.4) mg/dl Amiodarone (1.5-2.5) mcg/mL Desmethylamiodarone (1.5-2.5) mcg/mL 02/05/20 02/05/20 02/05/20 Range/Units 04:02 04:02 00:00 WBC 12.63 H (4.8-10.8) K/uL RBC 3.31 L (4.2-5.4) M/uL Hgb 11.2 L (12.0-16.0) g/dL Hct 32.3 L (37-47) % MCV 97.6 (80-100) fL MCH 33.8 (25-34) pg MCHC 34.7 (32-36) g/dL RDW Std Deviation 55.3 H (36.4-46.3) fL RDW Coeff of Karyna 15.4 H (11.5-14.5) % Plt Count 93 L (130-400) K/uL MPV 11.0 H (7.4-10.4) fL Immature Gran % (Auto) 0.5 % Neut % (Auto) 77.6 % Lymph % (Auto) 17.5 % Latimer % (Auto) 4.0 % Eos % (Auto) 0.2 % Baso % (Auto) 0.2 % Immature Gran # (Auto) 0.06 H (0.00-0.02) K/uL Neut # (Auto) 9.81 H (1.4-6.5) K/uL Lymph # (Auto) 2.21 (1.2-3.4) K/uL Latimer # (Auto) 0.51 (0.11-0.59) K/uL Eos # (Auto) 0.02 (0-0.5) K/uL Baso # (Auto) 0.02 (0-0.2) K/uL Sample Site POC pH (7.35-7.45) POC pCO2 (35-46) mmHg POC pO2 (80-95) mmHg POC HCO3 (19-24) kemal/L POC Total CO2 (24-31) mmol/L POC Base Excess (-9-1.8) kemal/L POC ABG O2 Sat (90-95) % Justin Test O2 Delivery Device POC FiO2 % PEEP Sodium 139 (136-145) mmol/L Potassium 3.7 (3.5-5.1) mmol/L Chloride 105 (98-107) mmol/L Carbon Dioxide 25 (21-32) mmol/L Anion Gap 9.0 (3-11) BUN 38 H (7-18) mg/dl Creatinine 1.36 H (0.6-1.2) mg/dl Est Cr Clr Drug Dosing 26.6 ml/min Est GFR ( Amer) 39.9 Est GFR (Non-Af Amer) 34.4 BUN/Creatinine Ratio 27.6 H (10-20) Glucose 127 H (70-99) mg/dl POC Glucose (other) 93 (70-99) mg/dl Calcium 7.7 L (8.5-10.1) mg/dl Phosphorus 3.0 (2.5-4.9) mg/dl Magnesium 2.2 (1.8-2.4) mg/dl Amiodarone (1.5-2.5) mcg/mL Desmethylamiodarone (1.5-2.5) mcg/mL 02/04/20 02/04/20 02/04/20 Range/Units 20:41 13:48 13:30 WBC (4.8-10.8) K/uL RBC (4.2-5.4) M/uL Hgb (12.0-16.0) g/dL Hct (37-47) % MCV (80-100) fL MCH (25-34) pg MCHC (32-36) g/dL RDW Std Deviation (36.4-46.3) fL RDW Coeff of Karyna (11.5-14.5) % Plt Count (130-400) K/uL MPV (7.4-10.4) fL Immature Gran % (Auto) % Neut % (Auto) % Lymph % (Auto) % Latimer % (Auto) % Eos % (Auto) % Baso % (Auto) % Immature Gran # (Auto) (0.00-0.02) K/uL Neut # (Auto) (1.4-6.5) K/uL Lymph # (Auto) (1.2-3.4) K/uL Latimer # (Auto) (0.11-0.59) K/uL Eos # (Auto) (0-0.5) K/uL Baso # (Auto) (0-0.2) K/uL Sample Site POC pH (7.35-7.45) POC pCO2 (35-46) mmHg POC pO2 (80-95) mmHg POC HCO3 (19-24) kemal/L POC Total CO2 (24-31) mmol/L POC Base Excess (-9-1.8) kemal/L POC ABG O2 Sat (90-95) % Justin Test O2 Delivery Device POC FiO2 % PEEP Sodium 138 (136-145) mmol/L Potassium 4.0 D (3.5-5.1) mmol/L Chloride 106 (98-107) mmol/L Carbon Dioxide 26 (21-32) mmol/L Anion Gap 6.0 (3-11) BUN 40 H (7-18) mg/dl Creatinine 1.57 H (0.6-1.2) mg/dl Est Cr Clr Drug Dosing 23.0 ml/min Est GFR ( Amer) 33.5 Est GFR (Non-Af Amer) 28.9 BUN/Creatinine Ratio 25.8 H (10-20) Glucose 109 H (70-99) mg/dl POC Glucose (other) 95 100 H (70-99) mg/dl Calcium 8.1 L (8.5-10.1) mg/dl Phosphorus (2.5-4.9) mg/dl Magnesium (1.8-2.4) mg/dl Amiodarone (1.5-2.5) mcg/mL Desmethylamiodarone (1.5-2.5) mcg/mL 02/02/20 Range/Units 12:50 WBC (4.8-10.8) K/uL RBC (4.2-5.4) M/uL Hgb (12.0-16.0) g/dL Hct (37-47) % MCV (80-100) fL MCH (25-34) pg MCHC (32-36) g/dL RDW Std Deviation (36.4-46.3) fL RDW Coeff of Karyna (11.5-14.5) % Plt Count (130-400) K/uL MPV (7.4-10.4) fL Immature Gran % (Auto) % Neut % (Auto) % Lymph % (Auto) % Latimer % (Auto) % Eos % (Auto) % Baso % (Auto) % Immature Gran # (Auto) (0.00-0.02) K/uL Neut # (Auto) (1.4-6.5) K/uL Lymph # (Auto) (1.2-3.4) K/uL Latimer # (Auto) (0.11-0.59) K/uL Eos # (Auto) (0-0.5) K/uL Baso # (Auto) (0-0.2) K/uL Sample Site POC pH (7.35-7.45) POC pCO2 (35-46) mmHg POC pO2 (80-95) mmHg POC HCO3 (19-24) kemal/L POC Total CO2 (24-31) mmol/L POC Base Excess (-9-1.8) kemal/L POC ABG O2 Sat (90-95) % Justin Test O2 Delivery Device POC FiO2 % PEEP Sodium (136-145) mmol/L Potassium (3.5-5.1) mmol/L Chloride (98-107) mmol/L Carbon Dioxide (21-32) mmol/L Anion Gap (3-11) BUN (7-18) mg/dl Creatinine (0.6-1.2) mg/dl Est Cr Clr Drug Dosing ml/min Est GFR ( Amer) Est GFR (Non-Af Amer) BUN/Creatinine Ratio (10-20) Glucose (70-99) mg/dl POC Glucose (other) (70-99) mg/dl Calcium (8.5-10.1) mg/dl Phosphorus (2.5-4.9) mg/dl Magnesium (1.8-2.4) mg/dl Amiodarone 0.4 L (1.5-2.5) mcg/mL Desmethylamiodarone 0.5 L (1.5-2.5) mcg/mL Diagnostic Findings I have reviewed the chest x-ray dated 02/05/2020 Coding Level of Care Code Critical Care ea addt'l 30 min Diagnoses S/P admission to ICU (intensive care unit) Acute hypoxemic respiratory failure J96.01 Acute encephalopathy G93.40 Diarrhea R19.7 Leukocytosis D72.829 Atrial flutter I48.92 Lactic acidosis E87.2 CHF (congestive heart failure) I50.9 Complicated UTI (urinary tract infection) N39.0 Septic shock due to urinary tract infection A41.9; R65.21; N39.0 Gram-negative bacteremia R78.81 Non-convulsive status epilepticus G40.901 Atrial fibrillation I48.91 Geovanny-tachy syndrome I49.5 Goals of care, counseling/discussion Z71.89 DNR (do not resuscitate) Z66 Time Spent (min) 130 Comment I have personally spent 130 minutes of critical care time in the direct management of this patient. This is a life/limb threatening event. This includes time spent evaluating patient, direct bedside care, chart review, placing orders, interpretation of diagnostic studies, discussion with consultants, patient, and/or family members regarding treatment decisions, as well as other required patient management activities. This time is exclusive of all separately billable procedures, and teaching time and separate from and in addition to any other critical care service time.
[2020-02-05] MEDS: NOREPINEPHRINE (Adult) 8 MG in DEXTROSE 5% 500 ML IV SCH (15:22)
[2020-02-05] MEDS: PANTOprazole 40 MG in SYRINGE 0 ML IV SCH (17:15)
[2020-02-05] MEDS: DEXTROSE 50% 50 ML SYRINGE IV PRN ×2 (17:15→23:23)
[2020-02-05] MEDS ORDERED: Nursing to Pharmacy Communication ONE (18:01)
--- NOTE | 2020-02-05 18:29 | Hospitalist Progress Note ---
Date of Service February 05, 2020 Assessment & Plan (1) Altered mental status: 89 year old female with history of Atrial Flutter, CHF, presenting with unresponsiveness. ACUTE RESPIRATORY FAILURE, ALTERED MENTAL STATUS, POSSIBLY FROM: weaned off mechanical ventilation now on oxygen mask METABOLIC ENCEPHALOPATHY SECONDARY TO SEVERE SEPSIS, GRAM NEGATIVE BACILLI BACTEREMIA, POSSIBLE PNEUMONIA(Possible/Suspected) Gram-negative pneumonia , URINARY TRACT INFECTION sepsis protocol ordered blood cultures: (+) Proteus x 2 bottles repeat blood cultures: negative so far urine culture: negative so far sputum culture: Light normal jamir nasal MRSA: negative Covid test: negative on Zosyn Day 3--> changed to Ceftriaxone POSSIBLE SEIZURE Cerebyx given on admission CT head: negative for acute process initial EEG: concerning for convulsive seizures repeat EEG: no electrographic evidence of seizures started on Vimpat q12h, continue outpatient follow up to re-eval need for possible mcc anticonvulsant therapy SEPTIC SHOCK given IV fluids was given Levophed, Vasopressin--> weaned off management of sepsis per above ACUTE RENAL FAILURE normal creatinine 2018 as read by family over the phone awaiting records from recent hospitalization in [place], but hospital dis charge summary did not mention acute renal failure or CKD per family Nephro consulted crea improved from 2.9 to 1.75 to 1.2 good urine output continue to monitor RESPIRATORY ACIDOSIS, FROM HYPERCAPNEA management per #1 ATRIAL FLUTTER rate controlled usually on Amiodarone, Eliquis amiodarone level 0.4 on admission, low held for now in light of acute renal failure will need to re-evaluate mcc anticoagulation in light of recent unresponsiveness, possible seizure disorder HISTORY OF CONGESTIVE HEART FAILURE mentioned in initial outpatient Cardiology Visit awaiting records from recent hospitalization in [place] (+) mild dependent upper Ext edema echo pending monitor volume status closely DECUBITUS ULCERS,Pressure ulcer of left buttock, stage 2, right buttock, stage, 2, and sacrum, stage2. PRESENT ON ADMISSION does not appear infected daily wound care wound care consult DVT prophylaxis heparin SC Disposition lives with family at home PT/OT ordered speech therapy ordered Admission and Anticipated Discharge Date Admission Date: February 02, 2020 Subjective ff up for sepsis, bacteremia, pneumonia seen resting in bed, on oxygen mask, not in distress awake, answers some questions, follows some commands, oriented to person denies shortness of breath, cough no chest pain no abdominal pain denies other symptoms Review of Systems Review of Systems: All systems reviewed & are unremarkable except as noted in HPI & below Physical Exam Physical Exam: General- oriented x 1, not in distress, speaks in phrases with no effort or accessory muscle use Eyes- anicteric Neck- no JVD Lungs- mild rhonchi at the bases no wheezing Heart- normal rate, irregularly irregular rhythm; no murmurs Abdomen- normal bowel sounds, nondistended, soft, nontender Extremities- no pretibial edema, no calf tenderness Neuro- alert, oriented x 1; no gross focal neurologic deficits Skin- warm & dry Results & Data Results & Data ([facility]) Vital Signs (Past 12 Hours) Vital Signs Temp Pulse Resp BP Pulse Ox 02/05/20 18:03 111 H 24 99/59 L 100 02/05/20 17:42 108 H 18 102/54 L 100 02/05/20 17:03 115 H 19 102/54 L 99 02/05/20 16:07 114 H 27 H 101/51 L 98 02/05/20 15:37 36.9 C 85 22 108/65 99 02/05/20 15:07 113 H 92/63 L 98 02/05/20 14:00 113 H 98 02/05/20 13:38 113 H 90 02/05/20 13:37 113 H 96/55 L 90 02/05/20 13:30 113 H 94 02/05/20 13:07 113 H 88/62 L 94 02/05/20 13:00 113 H 95 02/05/20 12:37 96 H 102/54 L 98 02/05/20 12:30 112 H 97 02/05/20 12:07 96 H 101/64 97 02/05/20 12:00 36.7 C 92 H 97 02/05/20 11:37 91 H 109/75 97 02/05/20 11:30 96 H 96 02/05/20 11:15 94 H 21 97 02/05/20 11:07 92 H 112/71 97 02/05/20 11:00 93 H 97 02/05/20 10:36 84 119/72 97 02/05/20 10:30 92 H 97 02/05/20 10:06 106 H 112/69 97 02/05/20 10:00 106 H 96 02/05/20 09:36 106 H 104/73 97 02/05/20 09:30 106 H 97 02/05/20 09:06 105 H 115/74 97 02/05/20 09:00 105 H 97 02/05/20 08:36 103 H 112/73 97 02/05/20 08:30 103 H 95 02/05/20 08:06 91 H 101/71 97 02/05/20 08:00 36.8 C 93 H 97 02/05/20 07:36 101 H 93/66 L 97 02/05/20 07:30 106 H 96 02/05/20 07:06 106 H 105/66 97 02/05/20 07:03 106 H 22 97 02/05/20 07:00 106 H 96 Laboratory Results all noted and reviewed (1) Altered mental status Altered mental status type: unspecified Qualified Code(s): R41.82 - Altered mental status, unspecified
--- NOTE | 2020-02-05 19:07 | Nephrology Progress Note ---
Date of Service February 05, 2020 Assessment & Plan (1) ARANZA (acute kidney injury): Nonoliguric acute kidney injury likely due to ischemic ATN in setting of sepsis; improving. Urine sediment with the numerous RBCs and WBCs. renal u/s with small right kidney. Left kidney not seen. No hydronephrosis. Management of ATN is supportive. No indication for dialysis. No signs of volume overload or electrolyte imbalance which would warrant dialysis. Cr further improved today to 1.4. Potassium is acceptable at 3.7. -Off of Levophed and tolerating; would not give IV fluids at this time. -Avoid contrast unless lifesaving. -Daily labs. -Platelets dropping; attributed to sepsis --monitor (2) Acute hypoxemic respiratory failure: Due to sepsis and inability to protect airway. Patient has been extubated and is not a candidate for reintubation per critical care and family discussion; continue low rate of tube feeds (3) Gram-negative bacteremia: Patient with Proteus bacteremia likely source is UTI. Received Zosyn; de- escalated now to ceftriaxone. Urine culture nondiagnostic; follow-up lead cultures February 02 remain no growth to date; last positive blood cultures February 01 Admission and Anticipated Discharge Date Admission Date: February 02, 2020 Subjective Seen on rounds at approximately 1800 after chart was reviewed there to 9 AM. Patient extubated, alert, tracking. Able to provide review of systems. Tube feeds running at 10 mL hourly Review of Systems Review of Systems: Unobtainable due to cognitive status Physical Exam Constitutional: well developed and + frail appearing; no acute distress On aerosol mask Eyes: EOM intact bilaterally ENMT: Ears: no external ear abnormality Nose: no external nose abnormality Mouth: + dry oral mucous membranes NG tube present Neck: no nuchal rigidity Respiratory: normal respiratory effort Auscultation: + diminished lung sounds Cardiovascular: Rate/Rhythm: regular rhythm and + tachycardic Extremities: + edema (At most trace dependent) Gastrointestinal (Abdomen): Inspection/Auscultation: normal bowel sounds Percussion/Palpation: abdomen soft; abdomen nontender Musculoskeletal: Extremities: + abnormal strength (Generalized weakness; moves all extremities) Skin: no rashes, warm and dry Neurologic: awake sheets; makes no attempt to speak; unable to put on her glasses on her own Psychiatric: Orientation: alert Speech: + mute Genitourinary: Man with ample urine Results & Data ([facility]) Vital Signs (Past 12 Hours) Vital Signs Temp Pulse Resp BP Pulse Ox 02/05/20 18:03 111 H 24 99/59 L 100 02/05/20 17:42 108 H 18 102/54 L 100 02/05/20 17:03 115 H 19 102/54 L 99 02/05/20 16:07 114 H 27 H 101/51 L 98 02/05/20 15:37 36.9 C 85 22 108/65 99 02/05/20 15:07 113 H 92/63 L 98 02/05/20 14:00 113 H 98 02/05/20 13:38 113 H 90 02/05/20 13:37 113 H 96/55 L 90 02/05/20 13:30 113 H 94 02/05/20 13:07 113 H 88/62 L 94 02/05/20 13:00 113 H 95 02/05/20 12:37 96 H 102/54 L 98 02/05/20 12:30 112 H 97 02/05/20 12:07 96 H 101/64 97 02/05/20 12:00 36.7 C 92 H 97 02/05/20 11:37 91 H 109/75 97 02/05/20 11:30 96 H 96 02/05/20 11:15 94 H 21 97 02/05/20 11:07 92 H 112/71 97 02/05/20 11:00 93 H 97 02/05/20 10:36 84 119/72 97 02/05/20 10:30 92 H 97 02/05/20 10:06 106 H 112/69 97 02/05/20 10:00 106 H 96 02/05/20 09:36 106 H 104/73 97 02/05/20 09:30 106 H 97 02/05/20 09:06 105 H 115/74 97 02/05/20 09:00 105 H 97 02/05/20 08:36 103 H 112/73 97 02/05/20 08:30 103 H 95 02/05/20 08:06 91 H 101/71 97 02/05/20 08:00 36.8 C 93 H 97 02/05/20 07:36 101 H 93/66 L 97 02/05/20 07:30 106 H 96 02/05/20 07:06 106 H 105/66 97 02/05/20 07:03 106 H 22 97 02/05/20 07:00 106 H 96 Laboratory Results 02/05/20 04:02 02/05/20 04:02
[2020-02-06 04:37] LABS: Hematocrit (blood only) 33.4 % (37-47); Hemoglobin 11.2 g/dL (12.0-16.0); Mean Corpuscular Hemoglobin 32.4 pg (25-34); Mean Corpuscular Hgb Conc 33.5 g/dL (32-36); Mean Corpuscular Volume 96.5 fL (80-100); RDW Standard Deviation 53.2 fL (36.4-46.3); Red Blood Count 3.46 M/uL (4.2-5.4); White Blood Count 9.48 K/uL (4.8-10.8)
[2020-02-06 04:58] LABS: BUN Creatinine Ratio 23.7 (10-20); Calcium 8.1 mg/dl (8.5-10.1); Creatinine Clr Calc Pharmacy 30.1 ml/min; Est GFR (African American) 45.5; Est GFR (Non-African American) 39.2; Magnesium 2.1 mg/dl (1.8-2.4); Phosphorus 2.5 mg/dl (2.5-4.9); Potassium 3.2 mmol/L (3.5-5.1)
[2020-02-06 05:20] LABS: Mean Platelet Volume 10.3 fL (7.4-10.4); Platelet Count 94 K/uL (130-400)
[2020-02-06] MEDS: DEXTROSE 50% 50 ML SYRINGE IV PRN (05:21)
[2020-02-06 05:22] LABS: Basophils # (auto) 0.03 K/uL (0-0.2); Basophils % (auto) 0.3 %; Eosinophils # (auto) 0.07 K/uL (0-0.5); Eosinophils % (auto) 0.7 %; Immature Granulocytes # (auto) 0.07 K/uL (0.00-0.02); Immature Granulocytes % (auto) 0.7 %; Lymphocytes # (auto) 1.75 K/uL (1.2-3.4); Lymphocytes % (auto) 18.5 %; Monocytes # (auto) 0.75 K/uL (0.11-0.59); Monocytes % (auto) 7.9 %; Neutrophils # (auto) 6.81 K/uL (1.4-6.5); Neutrophils % (auto) 71.9 %; Polychromasia 1+; Toxic Vacuolation 1+
[2020-02-06] MEDS ORDERED: POTASSIUM CHLORIDE / WTR 20 MEQ/100 ML PLCT IV ONE (05:24)
[2020-02-06] MEDS ORDERED: POTASSIUM CHLORIDE 20 MEQ/15 ML UDC PO STA (05:24)
[2020-02-06] MEDS: HEPARIN SOD 5,000 UNIT/0.5 ML VIAL SQ SCH ×2 (05:27→17:30)
[2020-02-06] MEDS: INSULIN ASPART 100 UNITS/ML 3 ML PEN SC SCH (05:28)
[2020-02-06] MEDS: D5W AND NSS 1,000 ML IV SCH (05:34)
--- NOTE | 2020-02-06 07:01 | Nephrology Progress Note ---
Date of Service February 06, 2020 Assessment & Plan (1) ARANZA (acute kidney injury): Nonoliguric acute kidney injury likely due to ischemic ATN in setting of sepsis; further improving. Urine sediment with the numerous RBCs and WBCs. renal u/s with small right kidney. Left kidney not seen. No hydronephrosis. Management of ATN is supportive. No indication for dialysis. No signs of volume overload or electrolyte imbalance which would warrant dialysis. Cr further improved today to 1.2. Potassium is low at 3.2 > getting IV repletion -Off of Levophed and tolerating; would not give IV fluids at this time. -Avoid contrast unless lifesaving. -Daily bmp -Platelets running in the 90s for the past 2 hours but stable We will sign off. Please call if further questions arise. Continue daily labs and repletion of potassium (2) Acute hypoxemic respiratory failure: Due to sepsis and inability to protect airway. Patient has been extubated and is not a candidate for reintubation per critical care and family discussion; continue low rate of tube feeds which is slowing coming up (3) Gram-negative bacteremia: Patient with Proteus bacteremia likely source is UTI. Received Zosyn; de- escalated now to ceftriaxone. Urine culture nondiagnostic; follow-up lead cultures February 02 which again remain no growth to date; last positive blood cultures February 01 Admission and Anticipated Discharge Date Admission Date: February 02, 2020 Subjective More alert this morning and able to answer yes/no questions or 2 or 3 questions. Denies pain or shortness of breath Review of Systems Review of Systems: Unobtainable due to cognitive status Physical Exam Constitutional: well developed and + frail appearing; no acute distress Remains on aerosol mask Eyes: EOM intact bilaterally ENMT: Ears: no external ear abnormality Nose: no external nose abnormality Mouth: + dry oral mucous membranes Neck: no nuchal rigidity Respiratory: normal respiratory effort Auscultation: + diminished lung sounds Cardiovascular: Rate/Rhythm: + tachycardic and + irregularly irregular Extremities: + edema (At very most trace dependent) Gastrointestinal (Abdomen): Inspection/Auscultation: normal bowel sounds Percussion/Palpation: abdomen soft; abdomen nontender Musculoskeletal: Extremities: + abnormal strength (Generalized weakness; moves all extremities) Skin: no rashes, warm and dry Neurologic: awake Psychiatric: Orientation: alert Speech: + mute Results & Data ([place]) Vital Signs (Past 12 Hours) Vital Signs Temp Pulse Resp BP Pulse Ox 02/06/20 06:00 109 H 18 106/64 100 02/06/20 05:00 91 H 18 107/62 99 02/06/20 04:00 36.7 C 85 18 88/54 L 100 02/06/20 03:00 83 18 103/50 L 98 02/06/20 02:00 85 20 93/60 L 99 02/06/20 01:00 94 H 18 87/55 L 99 02/06/20 00:00 36.7 C 94 H 18 100/55 L 100 02/05/20 23:00 138 H 20 84/53 L 94 02/05/20 22:03 97 H 20 92/58 L 92 02/05/20 22:00 100 H 22 94 02/05/20 21:30 114 H 02/05/20 21:03 97 H 23 115/61 02/05/20 21:00 87 23 02/05/20 20:30 97 H 21 02/05/20 20:03 101 H 23 91/59 L 97 02/05/20 20:00 104 H 21 97 02/05/20 19:30 111 H 20 90 02/05/20 19:14 103 H 20 96/56 L 99 02/05/20 19:07 108 H 18 88/60 L 100 02/05/20 19:03 93 H 19 79/60 L 100 Laboratory Results 02/06/20 04:22 02/06/20 04:22
--- NOTE | 2020-02-06 07:38 | Critical Care Progress Note ---
Date of Service February 06, 2020 Assessment & Plan (1) S/P admission to ICU (intensive care unit): Reason Critically Ill: 89-year-old female with Proteus bacteremia PLAN: Neuro: Sedation and analgesia: Discontinue Hard of hearing -Will attempt at better communication/obtain hearing aids if available Resp: Respiratory failure - Kyphosis -Discussed with family terminal extubation no reintubation in event of respiratory insufficiency CV: Reported tachybradycardia syndrome, history of A. fib Fluids/Renal: Acute kidney injury: Improving -Placed on dextrose solution for hypoglycemia -We will discontinue if and when cleared for diet ID: Proteus bacteremia -De-escalate to Rocephin, 7 days duration total effective therapy -Repeat blood culture negative GI/Nutrition: Was tolerating tube feeds -N.p.o. for interim, speech and swallow evaluation Heme: Thrombocytopenia -Suspect secondary to sepsis DVT prophylaxis: Heparin Endocrine: ICU hyperglycemia protocol Vascular access: Discontinue femoral line, discontinue Man Code Status: DNR/DNI in event of cardiac arrest and respiratory insufficiency, no escalation of care (invasive high risk procedures) Disposition: Stable for downgrade to medical floor, DNR/DNI no escalation of aggressive measures. 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 Physical Exam Physical Exam: General: Alert. nontoxic. Significant kyphosis Skin: Warm, dry, Head: Atraumatic Ears, nose, mouth and throat: Moist mucous membranes Cardiovascular: Normal peripheral perfusion Respiratory: Coarse sounds bilaterally Gastrointestinal: Non distended Musculoskeletal: No deformity Results & Data Results & Data ([facility]) Vital Signs (Past 12 Hours) Vital Signs Temp Pulse Resp BP Pulse Ox 02/06/20 06:00 109 H 18 106/64 100 02/06/20 05:00 91 H 18 107/62 99 02/06/20 04:00 36.7 C 85 18 88/54 L 100 02/06/20 03:00 83 18 103/50 L 98 02/06/20 02:00 85 20 93/60 L 99 02/06/20 01:00 94 H 18 87/55 L 99 02/06/20 00:00 36.7 C 94 H 18 100/55 L 100 02/05/20 23:00 138 H 20 84/53 L 94 02/05/20 22:03 97 H 20 92/58 L 92 02/05/20 22:00 100 H 22 94 02/05/20 21:30 114 H 02/05/20 21:03 97 H 23 115/61 02/05/20 21:00 87 23 02/05/20 20:30 97 H 21 02/05/20 20:03 101 H 23 91/59 L 97 02/05/20 20:00 104 H 21 97 Laboratory Results 02/06/20 02/06/20 02/06/20 Range/Units 05:38 05:19 05:18 WBC (4.8-10.8) K/uL RBC (4.2-5.4) M/uL Hgb (12.0-16.0) g/dL Hct (37-47) % MCV (80-100) fL MCH (25-34) pg MCHC (32-36) g/dL RDW Std Deviation (36.4-46.3) fL RDW Coeff of Karyna (11.5-14.5) % Plt Count (130-400) K/uL MPV (7.4-10.4) fL Immature Gran % (Auto) % Neut % (Auto) % Lymph % (Auto) % Yancey % (Auto) % Eos % (Auto) % Baso % (Auto) % Immature Gran # (Auto) (0.00-0.02) K/uL Neut # (Auto) (1.4-6.5) K/uL Lymph # (Auto) (1.2-3.4) K/uL Yancey # (Auto) (0.11-0.59) K/uL Eos # (Auto) (0-0.5) K/uL Baso # (Auto) (0-0.2) K/uL Toxic Vacuolation Polychromasia Sodium (136-145) mmol/L Potassium (3.5-5.1) mmol/L Chloride (98-107) mmol/L Carbon Dioxide (21-32) mmol/L Anion Gap (3-11) BUN (7-18) mg/dl Creatinine (0.6-1.2) mg/dl Est Cr Clr Drug Dosing ml/min Est GFR ( Amer) Est GFR (Non-Af Amer) BUN/Creatinine Ratio (10-20) Glucose (70-99) mg/dl POC Glucose 134 H 65 L* 60 L* (70-99) mg/dl POC Glucose (other) (70-99) mg/dl Calcium (8.5-10.1) mg/dl Phosphorus (2.5-4.9) mg/dl Magnesium (1.8-2.4) mg/dl 02/06/20 02/06/20 02/05/20 Range/Units 04:22 04:22 23:41 WBC 9.48 (4.8-10.8) K/uL RBC 3.46 L (4.2-5.4) M/uL Hgb 11.2 L (12.0-16.0) g/dL Hct 33.4 L (37-47) % MCV 96.5 (80-100) fL MCH 32.4 (25-34) pg MCHC 33.5 (32-36) g/dL RDW Std Deviation 53.2 H (36.4-46.3) fL RDW Coeff of Karyna 15.0 H (11.5-14.5) % Plt Count 94 L (130-400) K/uL MPV 10.3 (7.4-10.4) fL Immature Gran % (Auto) 0.7 % Neut % (Auto) 71.9 % Lymph % (Auto) 18.5 % Yancey % (Auto) 7.9 % Eos % (Auto) 0.7 % Baso % (Auto) 0.3 % Immature Gran # (Auto) 0.07 H (0.00-0.02) K/uL Neut # (Auto) 6.81 H (1.4-6.5) K/uL Lymph # (Auto) 1.75 (1.2-3.4) K/uL Yancey # (Auto) 0.75 H (0.11-0.59) K/uL Eos # (Auto) 0.07 (0-0.5) K/uL Baso # (Auto) 0.03 (0-0.2) K/uL Toxic Vacuolation 1+ Polychromasia 1+ Sodium 142 (136-145) mmol/L Potassium 3.2 L (3.5-5.1) mmol/L Chloride 109 H (98-107) mmol/L Carbon Dioxide 28 (21-32) mmol/L Anion Gap 5.0 (3-11) BUN 29 H (7-18) mg/dl Creatinine 1.22 H (0.6-1.2) mg/dl Est Cr Clr Drug Dosing 30.1 ml/min Est GFR ( Amer) 45.5 Est GFR (Non-Af Amer) 39.2 BUN/Creatinine Ratio 23.7 H (10-20) Glucose 63 L (70-99) mg/dl POC Glucose 120 H (70-99) mg/dl POC Glucose (other) (70-99) mg/dl Calcium 8.1 L (8.5-10.1) mg/dl Phosphorus 2.5 (2.5-4.9) mg/dl Magnesium 2.1 (1.8-2.4) mg/dl 02/05/20 02/05/20 02/05/20 Range/Units 23:21 23:19 17:32 WBC (4.8-10.8) K/uL RBC (4.2-5.4) M/uL Hgb (12.0-16.0) g/dL Hct (37-47) % MCV (80-100) fL MCH (25-34) pg MCHC (32-36) g/dL RDW Std Deviation (36.4-46.3) fL RDW Coeff of Karyna (11.5-14.5) % Plt Count (130-400) K/uL MPV (7.4-10.4) fL Immature Gran % (Auto) % Neut % (Auto) % Lymph % (Auto) % Yancey % (Auto) % Eos % (Auto) % Baso % (Auto) % Immature Gran # (Auto) (0.00-0.02) K/uL Neut # (Auto) (1.4-6.5) K/uL Lymph # (Auto) (1.2-3.4) K/uL Yancey # (Auto) (0.11-0.59) K/uL Eos # (Auto) (0-0.5) K/uL Baso # (Auto) (0-0.2) K/uL Toxic Vacuolation Polychromasia Sodium (136-145) mmol/L Potassium (3.5-5.1) mmol/L Chloride (98-107) mmol/L Carbon Dioxide (21-32) mmol/L Anion Gap (3-11) BUN (7-18) mg/dl Creatinine (0.6-1.2) mg/dl Est Cr Clr Drug Dosing ml/min Est GFR ( Amer) Est GFR (Non-Af Amer) BUN/Creatinine Ratio (10-20) Glucose (70-99) mg/dl POC Glucose 60 L* 61 L* 105 H (70-99) mg/dl POC Glucose (other) (70-99) mg/dl Calcium (8.5-10.1) mg/dl Phosphorus (2.5-4.9) mg/dl Magnesium (1.8-2.4) mg/dl 02/05/20 02/05/20 02/05/20 Range/Units 17:12 17:11 11:57 WBC (4.8-10.8) K/uL RBC (4.2-5.4) M/uL Hgb (12.0-16.0) g/dL Hct (37-47) % MCV (80-100) fL MCH (25-34) pg MCHC (32-36) g/dL RDW Std Deviation (36.4-46.3) fL RDW Coeff of Karyna (11.5-14.5) % Plt Count (130-400) K/uL MPV (7.4-10.4) fL Immature Gran % (Auto) % Neut % (Auto) % Lymph % (Auto) % Yancey % (Auto) % Eos % (Auto) % Baso % (Auto) % Immature Gran # (Auto) (0.00-0.02) K/uL Neut # (Auto) (1.4-6.5) K/uL Lymph # (Auto) (1.2-3.4) K/uL Yancey # (Auto) (0.11-0.59) K/uL Eos # (Auto) (0-0.5) K/uL Baso # (Auto) (0-0.2) K/uL Toxic Vacuolation Polychromasia Sodium (136-145) mmol/L Potassium (3.5-5.1) mmol/L Chloride (98-107) mmol/L Carbon Dioxide (21-32) mmol/L Anion Gap (3-11) BUN (7-18) mg/dl Creatinine (0.6-1.2) mg/dl Est Cr Clr Drug Dosing ml/min Est GFR ( Amer) Est GFR (Non-Af Amer) BUN/Creatinine Ratio (10-20) Glucose (70-99) mg/dl POC Glucose 57 L* 56 L* (70-99) mg/dl POC Glucose (other) 106 H (70-99) mg/dl Calcium (8.5-10.1) mg/dl Phosphorus (2.5-4.9) mg/dl Magnesium (1.8-2.4) mg/dl 02/05/20 Range/Units 08:29 WBC (4.8-10.8) K/uL RBC (4.2-5.4) M/uL Hgb (12.0-16.0) g/dL Hct (37-47) % MCV (80-100) fL MCH (25-34) pg MCHC (32-36) g/dL RDW Std Deviation (36.4-46.3) fL RDW Coeff of Karyna (11.5-14.5) % Plt Count (130-400) K/uL MPV (7.4-10.4) fL Immature Gran % (Auto) % Neut % (Auto) % Lymph % (Auto) % Yancey % (Auto) % Eos % (Auto) % Baso % (Auto) % Immature Gran # (Auto) (0.00-0.02) K/uL Neut # (Auto) (1.4-6.5) K/uL Lymph # (Auto) (1.2-3.4) K/uL Yancey # (Auto) (0.11-0.59) K/uL Eos # (Auto) (0-0.5) K/uL Baso # (Auto) (0-0.2) K/uL Toxic Vacuolation Polychromasia Sodium (136-145) mmol/L Potassium (3.5-5.1) mmol/L Chloride (98-107) mmol/L Carbon Dioxide (21-32) mmol/L Anion Gap (3-11) BUN (7-18) mg/dl Creatinine (0.6-1.2) mg/dl Est Cr Clr Drug Dosing ml/min Est GFR ( Amer) Est GFR (Non-Af Amer) BUN/Creatinine Ratio (10-20) Glucose (70-99) mg/dl POC Glucose (70-99) mg/dl POC Glucose (other) 73 (70-99) mg/dl Calcium (8.5-10.1) mg/dl Phosphorus (2.5-4.9) mg/dl Magnesium (1.8-2.4) mg/dl Coding Level of Care Code 32559 Subseq Hosp Care Lvl 3 Diagnoses S/P admission to ICU (intensive care unit) Acute hypoxemic respiratory failure J96.01 Acute encephalopathy G93.40 Diarrhea R19.7 Leukocytosis D72.829 Atrial flutter I48.92 Lactic acidosis E87.2 CHF (congestive heart failure) I50.9 Complicated UTI (urinary tract infection) N39.0 Septic shock due to urinary tract infection A41.9; R65.21; N39.0 Gram-negative bacteremia R78.81 Non-convulsive status epilepticus G40.901 Atrial fibrillation I48.91 Geovanny-tachy syndrome I49.5 Goals of care, counseling/discussion Z71.89 DNR (do not resuscitate) Z66
[2020-02-06] MEDS: SODIUM CHLORIDE 0.9% IV SCH (08:39)
[2020-02-06] MEDS: LACOSAMIDE IV SCH (08:39)
--- NOTE | 2020-02-06 10:42 | Hospitalist Progress Note ---
Date of Service February 06, 2020 Assessment & Plan (1) Altered mental status: 89 year old female with history of Atrial Flutter, CHF, presenting with unresponsiveness. ACUTE RESPIRATORY FAILURE, ALTERED MENTAL STATUS, POSSIBLY FROM: extubated 02/05/20 now on 2-4 L NC METABOLIC ENCEPHALOPATHY SECONDARY TO SEVERE SEPSIS, GRAM NEGATIVE BACILLI BACTEREMIA, POSSIBLE PNEUMONIA(Possible/Suspected) Gram-negative pneumonia , URINARY TRACT INFECTION sepsis protocol ordered blood cultures: (+) Proteus x 2 bottles repeat blood cultures: negative so far urine culture: negative so far sputum culture: Light normal jamir nasal MRSA: negative Covid test: negative received 3 days of Zosyn--> changed to Ceftriaxone day 2 afebrile, mental status much better, oriented x 3, clinically improving although still weak POSSIBLE SEIZURE Cerebyx given on admission CT head: negative for acute process initial EEG: concerning for convulsive seizures repeat EEG: no electrographic evidence of seizures started on Vimpat q12h, continue outpatient follow up to re-eval need for possible usp anticonvulsant therapy SEPTIC SHOCK given IV fluids was given Levophed, Vasopressin--> weaned off management of sepsis per above ACUTE RENAL FAILURE normal creatinine 2019 as read by family over the phone awaiting records from recent hospitalization in [place], but hospital discharge summary did not mention acute renal failure or CKD per family Nephro consulted crea improved from 2.9 to 1.75 to 1.2 good urine output continue to monitor RESPIRATORY ACIDOSIS, FROM HYPERCAPNEA management per #1 ATRIAL FLUTTER rate controlled usually on Amiodarone, Eliquis amiodarone level 0.4 on admission, low held for in light of acute renal failure--> ordered to be resumed on 02/07/20 CHADVASC 4 but will need to re-evaluate usp anticoagulation in light of recent unresponsiveness, possible seizure disorder HISTORY OF CONGESTIVE HEART FAILURE mentioned in initial outpatient Cardiology Visit awaiting records from recent hospitalization in [place] (+) mild dependent upper Ext edema echo pending monitor volume status closely DECUBITUS ULCERS,Pressure ulcer of left buttock, stage 2, right buttock, stage, 2, and sacrum, stage2. PRESENT ON ADMISSION does not appear infected daily wound care wound care consult DVT prophylaxis heparin SC Disposition lives with family at home PT/OT ordered speech therapy ordered Admission and Anticipated Discharge Date Admission Date: February 02, 2020 Subjective ff up for sepsis, bacteremia, pneumonia seen resting in bed, sitting, on 2 L o2 via NC more awake, alert, but still weak oriented x 3, answers questions appropriately denies shortness of breath, cough, chest pain no abdominal pain, nausea/vomiting denies focal weakness/numbness no other symptoms would like to try PO diet Review of Systems Review of Systems: All systems reviewed & are unremarkable except as noted in HPI & below Physical Exam Physical Exam: General- oriented x 3, not in distress, speaks in sentences with no effort or accessory muscle use Eyes- anicteric Neck- no JVD Lungs- clear breath sounds bilaterally, no rales/wheezes Heart- normal rate, irregularly irregular rhythm; no murmurs Abdomen- normal bowel sounds, nondistended, soft, nontender Extremities- mild upper ext edema, no warmth/tenderness no pretibial edema, no calf tenderness Neuro- alert, oriented x 3; no gross focal neurologic deficits Skin- warm & dry Results & Data Results & Data ([facility]) Vital Signs (Past 12 Hours) Vital Signs Temp Pulse Resp BP Pulse Ox 02/06/20 10:00 36.7 C 90 14 100 02/06/20 09:30 93 H 29 H 98 02/06/20 09:00 110 H 27 H 99 02/06/20 08:30 76 30 H 02/06/20 08:00 36.4 C L 79 16 99 02/06/20 07:00 66 12 99 02/06/20 06:00 109 H 18 106/64 100 02/06/20 05:00 91 H 18 107/62 99 02/06/20 04:00 36.7 C 85 18 88/54 L 100 02/06/20 03:00 83 18 103/50 L 98 02/06/20 02:00 85 20 93/60 L 99 02/06/20 01:00 94 H 18 87/55 L 99 02/06/20 00:00 36.7 C 94 H 18 100/55 L 100 02/05/20 23:00 138 H 20 84/53 L 94 Laboratory Results Laboratory Results - last 24 hr 02/05/20 02/05/20 02/05/20 11:57 17:11 17:12 WBC RBC Hgb Hct MCV MCH MCHC RDW Std Deviation RDW Coeff of Karyna Plt Count MPV Immature Gran % (Auto) Neut % (Auto) Lymph % (Auto) [place] % (Auto) Eos % (Auto) Baso % (Auto) Immature Gran # (Auto) Neut # (Auto) Lymph # (Auto) [place] # (Auto) Eos # (Auto) Baso # (Auto) Toxic Vacuolation Polychromasia Sodium Potassium Chloride Carbon Dioxide Anion Gap BUN Creatinine Est Cr Clr Drug Dosing Est GFR ( Amer) Est GFR (Non-Af Amer) BUN/Creatinine Ratio Glucose POC Glucose 56 L* 57 L* POC Glucose (other) 106 H Calcium Phosphorus Magnesium 02/05/20 02/05/20 02/05/20 17:32 23:19 23:21 WBC RBC Hgb Hct MCV MCH MCHC RDW Std Deviation RDW Coeff of Karyna Plt Count MPV Immature Gran % (Auto) Neut % (Auto) Lymph % (Auto) [place] % (Auto) Eos % (Auto) Baso % (Auto) Immature Gran # (Auto) Neut # (Auto) Lymph # (Auto) [place] # (Auto) Eos # (Auto) Baso # (Auto) Toxic Vacuolation Polychromasia Sodium Potassium Chloride Carbon Dioxide Anion Gap BUN Creatinine Est Cr Clr Drug Dosing Est GFR ( Amer) Est GFR (Non-Af Amer) BUN/Creatinine Ratio Glucose POC Glucose 105 H 61 L* 60 L* POC Glucose (other) Calcium Phosphorus Magnesium 02/05/20 02/06/20 02/06/20 23:41 04:22 04:22 WBC 9.48 RBC 3.46 L Hgb 11.2 L Hct 33.4 L MCV 96.5 MCH 32.4 MCHC 33.5 RDW Std Deviation 53.2 H RDW Coeff of Karyna 15.0 H Plt Count 94 L MPV 10.3 Immature Gran % (Auto) 0.7 Neut % (Auto) 71.9 Lymph % (Auto) 18.5 [place] % (Auto) 7.9 Eos % (Auto) 0.7 Baso % (Auto) 0.3 Immature Gran # (Auto) 0.07 H Neut # (Auto) 6.81 H Lymph # (Auto) 1.75 [place] # (Auto) 0.75 H Eos # (Auto) 0.07 Baso # (Auto) 0.03 Toxic Vacuolation 1+ Polychromasia 1+ Sodium 142 Potassium 3.2 L Chloride 109 H Carbon Dioxide 28 Anion Gap 5.0 BUN 29 H Creatinine 1.22 H Est Cr Clr Drug Dosing 30.1 Est GFR ( Amer) 45.5 Est GFR (Non-Af Amer) 39.2 BUN/Creatinine Ratio 23.7 H Glucose 63 L POC Glucose 120 H POC Glucose (other) Calcium 8.1 L Phosphorus 2.5 Magnesium 2.1 02/06/20 02/06/20 02/06/20 05:18 05:19 05:38 WBC RBC Hgb Hct MCV MCH MCHC RDW Std Deviation RDW Coeff of Karyna Plt Count MPV Immature Gran % (Auto) Neut % (Auto) Lymph % (Auto) [place] % (Auto) Eos % (Auto) Baso % (Auto) Immature Gran # (Auto) Neut # (Auto) Lymph # (Auto) [place] # (Auto) Eos # (Auto) Baso # (Auto) Toxic Vacuolation Polychromasia Sodium Potassium Chloride Carbon Dioxide Anion Gap BUN Creatinine Est Cr Clr Drug Dosing Est GFR ( Amer) Est GFR (Non-Af Amer) BUN/Creatinine Ratio Glucose POC Glucose 60 L* 65 L* 134 H POC Glucose (other) Calcium Phosphorus Magnesium (1) Altered mental status Altered mental status type: unspecified Qualified Code(s): R41.82 - Altered mental status, unspecified
[2020-02-06] MEDS: cefTRIAXone SODIUM 1,000 MG in DEXTROSE 5% 50 ML IV SCH (11:01)
[2020-02-06] MEDS ORDERED: Nursing to Pharmacy Communication ONE (12:17)
--- NOTE | 2020-02-06 13:09 | Infectious Disease Consult ---
Date of Consultation February 06, 2020 Assessment & Plan (1) Gram negative sepsis: suspect due to gu source, repeat blood cultures negative to date, clinically improved, leukocytosis resolved. can continue rocephin while in hospital, would give 14 days from first negative blood culture, can change to po upon d/c to complete course, suggest keflex. would avoid quinolones as pt is on amio. History of Present Illness Attending Physician: Doyle Jones MD pt admitted on 02/01 after being found unresponsive, she was intubated and admitted to ICU. She was initally on zosyn but now on ctx. tolerating well. in ER she was found to have wbc 40. creat 2.9. UA >30 wbc adn +3 bacteria. Covid testing done and negative. she is tolerating abx well. Her wbc has decreased to 9, creat now 1.2. remain in ICU. extubaed, afebrile. undergoing echo. CXR with b/l infiltrates, sputum culture negative. Initial blood cultures grew abebe sensitive proteus, repeat cultures are 02/02 negative. urine cultue > 3 organisms. ID consulted for + blood cultures. Allergies Allergy/AdvReac Type Severity Reaction Status Date / Time No Known Allergies Allergy Unverified 02/02/20 09:57 Home Medications Home Medications Medication Instructions Recorded Confirmed Type Stool Softener 4 cap PO QPM 02/02/20 02/02/20 History amiodarone [Pacerone] 200 mg PO QAM 02/02/20 02/02/20 History apixaban [Eliquis] 5 mg PO BID 02/02/20 02/02/20 History aspirin [Aspirin Low Dose] 81 mg PO QAM 02/02/20 02/02/20 History gabapentin 300 mg PO TID 02/02/20 02/02/20 History hydrochlorothiazide 25 mg PO QAM 02/02/20 02/02/20 History dgnhmmbi-qok-[place]-lycopen-lutein 1 tab PO QAM 02/02/20 02/02/20 History [Centrum Silver] Patient History Medical History Acute encephalopathy (Acute) Acute hypoxemic respiratory failure (Acute) Atrial fibrillation Atrial flutter Geovanny-tachy syndrome CHF (congestive heart failure) Complicated UTI (urinary tract infection) Diarrhea Gram-negative bacteremia Lactic acidosis Leukocytosis 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, doing AED trial to see if improvement S/P admission to ICU (intensive care unit) Septic shock due to urinary tract infection Social History Preferred Language: Spanish Communication Ability: Unable marital status: / Current Living Situation: Family Feels Safe at Home: Yes Smoking Status: Never smoker Second Hand Exposure: No ; Hx Alcohol Use: No Hx Substance Use: No Review of Systems Review of Systems: Other Physical Exam Constitutional: WD/WN, vitals as above Eyes: PERRL, conjunctivae normal, anicteric sclerae ENMT: external ear and nose normal, oropharynx normal Neck: normal visual inspection Respiratory: normal respiratory effort Musculoskeletal: Head/Neck/Chest: normocephalic and head atraumatic Skin: no rashes, warm and dry Psychiatric: Orientation: alert Results & Data ([facility]) Vital Signs (Past 12 Hours) Vital Signs Temp Pulse Resp BP Pulse Ox 02/06/20 12:00 91 H 18 100 02/06/20 11:30 91 H 17 100 02/06/20 11:00 90 30 H 100 02/06/20 10:30 91 H 18 100 02/06/20 10:00 36.7 C 90 14 100 02/06/20 09:30 93 H 29 H 98 02/06/20 09:00 110 H 27 H 99 02/06/20 08:30 76 30 H 02/06/20 08:00 36.4 C L 79 16 99 02/06/20 07:00 66 12 99 02/06/20 06:00 109 H 18 106/64 100 02/06/20 05:00 91 H 18 107/62 99 02/06/20 04:00 36.7 C 85 18 88/54 L 100 02/06/20 03:00 83 18 103/50 L 98 02/06/20 02:00 85 20 93/60 L 99 Laboratory Results Microbiology 02/03/20 09:26 Blood Aerobic Blood Culture - Preliminary No growth in Aerobic bottle after 48 hours. 02/03/20 09:26 Blood Anaerobic Blood Culture - Preliminary No growth in Anaerobic bottle after 48 hours. 02/03/20 09:26 Blood Aerobic Blood Culture - Preliminary No growth in Aerobic bottle after 48 hours. 02/03/20 09:26 Blood Anaerobic Blood Culture - Preliminary No growth in Anaerobic bottle after 48 hours. 02/02/20 12:57 Blood Aerobic Blood Culture - Preliminary Proteus mirabilis 02/02/20 12:57 Blood Anaerobic Blood Culture - Preliminary No growth in Anaerobic bottle after 48 hours. 02/02/20 12:50 Blood Aerobic Blood Culture - Preliminary Proteus mirabilis 02/02/20 12:50 Blood Anaerobic Blood Culture - Preliminary No growth in Anaerobic bottle after 48 hours. 02/02/20 21:50 Sputum,Vent Suction Gram Stain - Final 02/02/20 21:50 Sputum,Vent Suction Sputum Culture - Final Light normal jamir. 02/02/20 09:30 Urine,Indwelling Cath Urine Culture - Final More than three types of organisms present, all high counts mixed probable skin jamir - No further identifications or sensitivities to follow. PG Care Time/CCT Total # of Minutes Spent Total Time Spent with Patient: Total time spent is greater than 50% in coordination of care (as documented) at patient's floor/unit and/or counseling patient: Coding Level of Care Code 64976 Inpt Consult Level 4 Diagnoses Gram negative sepsis A41.50
[2020-02-06] MEDS: PANTOprazole 40 MG in SYRINGE 0 ML IV SCH (17:30)
[2020-02-07] MEDS: SODIUM CHLORIDE 0.9% IV SCH ×2 (01:55→09:54)
[2020-02-07] MEDS: LACOSAMIDE IV SCH ×2 (01:55→09:54)
[2020-02-07] MEDS: D5W AND NSS 1,000 ML IV SCH (02:14)
[2020-02-07 04:53] LABS: Basophils # (auto) 0.04 K/uL (0-0.2); Basophils % (auto) 0.5 %; Eosinophils # (auto) 0.19 K/uL (0-0.5); Eosinophils % (auto) 2.2 %; Hematocrit (blood only) 35.2 % (37-47); Hemoglobin 11.6 g/dL (12.0-16.0); Immature Granulocytes # (auto) 0.09 K/uL (0.00-0.02); Immature Granulocytes % (auto) 1.1 %; Lymphocytes # (auto) 2.22 K/uL (1.2-3.4); Mean Corpuscular Hemoglobin 32.1 pg (25-34); Mean Corpuscular Volume 97.5 fL (80-100); Mean Platelet Volume 11.1 fL (7.4-10.4); Monocytes # (auto) 0.68 K/uL (0.11-0.59); Neutrophils # (auto) 5.32 K/uL (1.4-6.5); Neutrophils % (auto) 62.2 %; Platelet Count 115 K/uL (130-400); RDW Coefficient of Variation 14.9 % (11.5-14.5); RDW Standard Deviation 53.2 fL (36.4-46.3); Red Blood Count 3.61 M/uL (4.2-5.4); White Blood Count 8.54 K/uL (4.8-10.8)
[2020-02-07 05:43] LABS: Albumin Globulin Ratio 0.5 (0.9-2); BUN Creatinine Ratio 18.4 (10-20); Bilirubin,Total 0.6 mg/dl (0.2-1); Creatinine Clr Calc Pharmacy 36.3 ml/min; Est GFR (African American) 57.2; Est GFR (Non-African American) 49.3; Globulin 4.2 gm/dl (2.5-4.0); Magnesium 1.9 mg/dl (1.8-2.4); Phosphorus 2.4 mg/dl (2.5-4.9); Potassium 3.8 mmol/L (3.5-5.1); Total Protein 6.2 gm/dl (6.4-8.2)
[2020-02-07] MEDS: HEPARIN SOD 5,000 UNIT/0.5 ML VIAL SQ SCH ×2 (06:22→17:51)
[2020-02-07] MEDS: AMIODARONE 200 MG TAB PO SCH (08:47)
[2020-02-07] MEDS ORDERED: LACOSAMIDE 50 MG TABLET PO ONE (09:30)
[2020-02-07] MEDS: cefTRIAXone SODIUM 1,000 MG in DEXTROSE 5% 50 ML IV SCH (11:19)
--- NOTE | 2020-02-07 16:01 | Hospitalist Progress Note ---
Date of Service February 07, 2020 Assessment & Plan (1) Encephalopathy acute: METABOLIC ENCEPHALOPATHY SECONDARY TO SEVERE SEPSIS WITH SEPTIC SHOCK, GRAM NEGATIVE BACILLI BACTEREMIA, POSSIBLE PNEUMONIA(Possible/Suspected) Gram- negative pneumonia , URINARY TRACT INFECTION Admitted with septic shock and required intravenous pressor residents Required ICU admission with intubation Blood cultures have been developing Proteus in the repeat cultures have been negative Urine cultures remains negative, sputum cultures normal jamir and MRSA has been negative COVID-19 test is negative Received intravenous Zosyn and has been changed to ceftriaxone Likely much better with resolution of encephalopathy (2) Gram negative sepsis: (3) Septic shock due to urinary tract infection: As above (4) Acute hypoxemic respiratory failure: Was admitted to ICU and required intubation Requiring intravenous vasopressors to support blood pressure Appreciate reservation sales agent input and recommendation Status post extubation and transfer to telemetry unit for continued care Saturating well on 2 L of nasal cannula oxygen (5) ARANZA (acute kidney injury): Patient with acute kidney injury likely due to ischemic ATN in setting of sepsis No Hydronephrosis Awaiting records from recent hospitalization in [place], but hospital discharge summary did not mention acute renal failure or CKD per family Nephro consulted-input and recommendation Received IV fluid Creatinine is normalized (6) Atrial fibrillation: Rrate controlled Usually on Amiodarone, Eliquis Amiodarone level 0.4 on admission, low CHADVASC 4 but will need to re-evaluate long term care phlebotomist anticoagulation in light of recent unresponsiveness, possible seizure disorder Has had a fall in December Her seizure is well controlled and he she will be going to rehab for short-term Discussed with the paediatric physiotherapist Will restart Eliquis on discharge Cardiology appointment as an outpatient (7) Non-convulsive status epilepticus: POSSIBLE SEIZURE Cerebyx given on admission CT head: negative for acute process Appreciate neurology input and recommendation Initial EEG: concerning for convulsive seizures Repeat EEG: no electrographic evidence of seizures Started on Vimpat q12h, continue Outpatient follow up to re-eval need for possible shelter anticonvulsant therapy (8) Decubital ulcer: Pressure ulcer of left buttock, stage 2, right buttock, stage, 2, and sacrum, stage2. PRESENT ON ADMISSION does not appear infected daily wound care wound care consult Discussed with the family members Admission and Anticipated Discharge Date Admission Date: February 02, 2020 Subjective The patient was seen and examined in telemetry unit Today she complains to have weakness but denies any other symptoms Denies any chest pain, palpitation or any shortness of breath Denies any abdominal pain, nausea and or vomiting Review of Systems Review of Systems: All systems reviewed and are unremarkable except as noted below Neurologic: + generalized weakness; no localized weakness Physical Exam Physical Exam: Lying in bed comfortably Constitutional: well developed, well nourished, + ill appearing and + obese; no acute distress Eyes: PERRL, conjunctivae normal, anicteric sclerae ENMT: external ear and nose normal, oropharynx normal Neck: trachea midline, no thyromegaly Respiratory: normal respiratory effort; no respiratory distress Auscultation: lungs clear to auscultation bilaterally Cardiovascular: Rate/Rhythm: regular rate and regular rhythm Heart Sounds: no murmur Gastrointestinal (Abdomen): Inspection/Auscultation: abdomen normal to inspection and normal bowel sounds Percussion/Palpation: abdomen soft; abdomen nontender Musculoskeletal: No acute arthritis involving any joints Neurologic: moves all extremities; no focal motor deficits Lymphatic: no cervical or axillary lymphadenopathy Results & Data Results & Data ([facility]) Vital Signs (Past 12 Hours) Vital Signs Temp Pulse Pulse Pulse Resp BP BP 02/07/20 12:00 36.3 C L 108 H 18 106/55 L 02/07/20 09:00 36.5 C 111 H 18 107/61 02/07/20 08:00 36.6 C 84 84 18 94/70 L 02/07/20 04:00 36.8 C 84 16 93/52 L Pulse Ox 02/07/20 12:00 100 02/07/20 09:00 95 02/07/20 08:00 92 02/07/20 04:00 93 Laboratory Results Short CBC 02/07/20 Range/Units 04:11 WBC 8.54 (4.8-10.8) K/uL Hgb 11.6 L (12.0-16.0) g/dL Hct 35.2 L (37-47) % Plt Count 115 L (130-400) K/uL BMP 02/07/20 04:11 Sodium 142 Potassium 3.8 D Chloride 110 H Carbon Dioxide 29 BUN 19 H Creatinine 1.01 Glucose 76 Calcium 8.0 L Liver Function 02/07/20 Range/Units 04:11 Total Bilirubin 0.6 (0.2-1) mg/dl AST 27 (15-37) U/L ALT 29 (12-78) U/L Alkaline Phosphatase 161 H (45-117) U/L Albumin 2.0 L (3.4-5.0) gm/dl Medications Administered Current Inpatient Medications Amiodarone HCl (Cordarone) 200 mg PO QAM TEODORO Stop: 03/08/20 08:59 Last Admin: 02/07/20 08:47 Dose: 200 mg Documented by: Dextrose (Dextrose 50%) 25 - 50 ml IV UD PRN; Protocol PRN Reason: Hypoglycemia Protocol Stop: 03/03/20 13:50 Last Admin: 02/06/20 05:21 Dose: 25 ml Documented by: Glucagon (Glucagen) 1 mg SQ UD PRN; Protocol PRN Reason: Hypoglycemia Protocol Stop: 03/03/20 13:50 Glucose (Dex4 Glucose) 4 - 8 tabs PO UD PRN; Protocol PRN Reason: Hypoglycemia Protocol Stop: 03/03/20 13:50 Glucose (Glucose 40%) 15 - 30 gm PO UD PRN; Protocol PRN Reason: Hypoglycemia Protocol Stop: 03/03/20 13:50 Heparin Sodium (Beef Lung) (Heparin Sod 10 Unit/Ml Flush) 5 ml FLUSH PRN PRN PRN Reason: Flush Stop: 03/04/20 00:00 Heparin Sodium (Porcine) (Heparin Sodium (Porcine)) 5,000 units SQ Q12H TEODORO Stop: 03/07/20 17:59 Last Admin: 02/07/20 06:22 Dose: 5,000 units Documented by: Ceftriaxone Sodium 1,000 mg/ (Dextrose) 60 mls @ 120 mls/hr IV Q24H TEODORO; Protocol Stop: 02/16/20 11:29 Last Infusion: 02/07/20 11:57 Dose: Infused Documented by: Lacosamide (Vimpat) 100 mg PO HS TEODORO Stop: 03/08/20 20:59 Lacosamide (Vimpat) 50 mg PO QAM TEODORO Stop: 03/09/20 08:59 Miscellaneous (Carbohydrates For Hypoglycemia) 15 - 30 gm PO UD PRN PRN Reason: Hypoglycemia Protocol Stop: 03/03/20 13:50 Pantoprazole Sodium (Protonix) 40 mg PO DAILY TEODORO Stop: 03/09/20 08:59
[2020-02-07] MEDS: LACOSAMIDE 50 MG TABLET PO SCH (20:04)
[2020-02-08] MEDS: HEPARIN SOD 5,000 UNIT/0.5 ML VIAL SQ SCH (05:38)
[2020-02-08] MEDS: AMIODARONE 200 MG TAB PO SCH (07:48)
[2020-02-08] MEDS: LACOSAMIDE 50 MG TABLET PO SCH ×2 (07:48→21:12)
[2020-02-08] MEDS: PANTOprazole 40 MG TAB PO SCH (07:48)
--- NOTE | 2020-02-08 10:34 | Hospitalist Progress Note ---
Date of Service February 08, 2020 Assessment & Plan (1) Encephalopathy acute: METABOLIC ENCEPHALOPATHY SECONDARY TO SEVERE SEPSIS WITH SEPTIC SHOCK, GRAM NEGATIVE BACILLI BACTEREMIA, POSSIBLE PNEUMONIA(Possible/Suspected) Gram- negative pneumonia , URINARY TRACT INFECTION Admitted with septic shock and required intravenous pressor residents Required ICU admission with intubation Blood cultures have been developing Proteus in the repeat cultures have been negative Urine cultures remains negative, sputum cultures normal jamir and MRSA has been negative COVID-19 test is negative Received intravenous Zosyn and has been changed to ceftriaxone Likely much better with resolution of encephalopathy Remained stable medically (2) Gram negative sepsis: (3) Septic shock due to urinary tract infection: As above (4) Acute hypoxemic respiratory failure: Was admitted to ICU and required intubation Requiring intravenous vasopressors to support blood pressure Appreciate copy chief input and recommendation Status post extubation and transfer to telemetry unit for continued care Saturating well on 2 L of nasal cannula oxygen Will need to continue 2 L nasal cannula oxygen on discharge (5) ARANZA (acute kidney injury): Patient with acute kidney injury likely due to ischemic ATN in setting of sepsis No Hydronephrosis Awaiting records from recent hospitalization in [place], but hospital discharge summary did not mention acute renal failure or CKD per family Nephro consulted-input and recommendation Received IV fluid Creatinine is normalized (6) Atrial fibrillation: Rrate controlled Usually on Amiodarone, Eliquis Amiodarone level 0.4 on admission, low CHADVASC 4 but will need to re-evaluate director long term care anticoagulation in light of recent unresponsiveness, possible seizure disorder Has had a fall in December Her seizure is well controlled and he she will be going to rehab for short-term Discussed with the sales and service technician Will restart Eliquis on discharge Cardiology appointment as an outpatient Heart rate is controlled (7) 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 PRESENT ON ADMISSION does not appear infected daily wound care wound care consult Discussed with the family members Admission and Anticipated Discharge Date Admission Date: February 02, 2020 Subjective The patient was seen and examined in telemetry unit Today she complains to have weakness but denies any other symptoms Denies any chest pain, palpitation or any shortness of breath Denies any abdominal pain, nausea and or vomiting 02/08/2020 The patient was seen and examined in telemetry unit She is upset that she will need to go to rehab even for the short-term She did not take her breakfast due to that reason She is agreeable to go to short-term rehab after I have spoken to her Review of Systems Review of Systems: All systems reviewed and are unremarkable except as noted below Neurologic: + generalized weakness; no localized weakness Physical Exam Physical Exam: Lying in bed comfortably Constitutional: well developed, well nourished, + ill appearing and + obese; no acute distress Eyes: PERRL, conjunctivae normal, anicteric sclerae ENMT: external ear and nose normal, oropharynx normal Neck: trachea midline, no thyromegaly Respiratory: no respiratory distress Auscultation: + diminished lung sounds (Diminished breath sounds at the bases) Cardiovascular: Rate/Rhythm: regular rate and regular rhythm Heart Sounds: no murmur Gastrointestinal (Abdomen): Inspection/Auscultation: abdomen normal to inspection and normal bowel sounds Percussion/Palpation: abdomen soft; abdomen nontender Musculoskeletal: No acute arthritis involving any joints Neurologic: moves all extremities; no focal motor deficits Lymphatic: no cervical or axillary lymphadenopathy Results & Data Results & Data ([facility]) Vital Signs (Past 12 Hours) Vital Signs Temp Pulse Pulse Resp BP Pulse Ox 02/08/20 07:36 36.7 C 93 H 18 102/68 90 02/08/20 04:11 36.5 C 92 H 20 106/69 95 02/07/20 23:43 36.8 C 108 H 19 87/57 L 98 02/07/20 23:33 104 H Medications Administered Current Inpatient Medications Amiodarone HCl (Cordarone) 200 mg PO QAM TEODORO Stop: 03/08/20 08:59 Last Admin: 02/08/20 07:48 Dose: 200 mg Documented by: Dextrose (Dextrose 50%) 25 - 50 ml IV UD PRN; Protocol PRN Reason: Hypoglycemia Protocol Stop: 03/03/20 13:50 Last Admin: 02/06/20 05:21 Dose: 25 ml Documented by: Glucagon (Glucagen) 1 mg SQ UD PRN; Protocol PRN Reason: Hypoglycemia Protocol Stop: 03/03/20 13:50 Glucose (Dex4 Glucose) 4 - 8 tabs PO UD PRN; Protocol PRN Reason: Hypoglycemia Protocol Stop: 03/03/20 13:50 Glucose (Glucose 40%) 15 - 30 gm PO UD PRN; Protocol PRN Reason: Hypoglycemia Protocol Stop: 03/03/20 13:50 Heparin Sodium (Beef Lung) (Heparin Sod 10 Unit/Ml Flush) 5 ml FLUSH PRN PRN PRN Reason: Flush Stop: 03/04/20 00:00 Heparin Sodium (Porcine) (Heparin Sodium (Porcine)) 5,000 units SQ Q12H TEODORO Stop: 03/07/20 17:59 Last Admin: 02/08/20 05:38 Dose: 5,000 units Documented by: Ceftriaxone Sodium 1,000 mg/ (Dextrose) 60 mls @ 120 mls/hr IV Q24H TEODORO; Protocol Stop: 02/16/20 11:29 Last Infusion: 02/07/20 11:57 Dose: Infused Documented by: Lacosamide (Vimpat) 100 mg PO HS TEODORO Stop: 03/08/20 20:59 Last Admin: 02/07/20 20:04 Dose: 100 mg Documented by: Lacosamide (Vimpat) 50 mg PO QAM TEODORO Stop: 03/09/20 08:59 Last Admin: 02/08/20 07:48 Dose: 50 mg Documented by: Miscellaneous (Carbohydrates For Hypoglycemia) 15 - 30 gm PO UD PRN PRN Reason: Hypoglycemia Protocol Stop: 03/03/20 13:50 Pantoprazole Sodium (Protonix) 40 mg PO DAILY TEODORO Stop: 03/09/20 08:59 Last Admin: 02/08/20 07:48 Dose: 40 mg Documented by:
[2020-02-08] MEDS: cefTRIAXone SODIUM 1,000 MG in DEXTROSE 5% 50 ML IV SCH (10:43)
[2020-02-08] MEDS: APIXABAN 5 MG TABLET PO SCH (18:27)
[2020-02-09] MEDS: APIXABAN 5 MG TABLET PO SCH (06:40)
[2020-02-09] MEDS: LACOSAMIDE 50 MG TABLET PO SCH (08:59)
[2020-02-09] MEDS: AMIODARONE 200 MG TAB PO SCH (08:59)
[2020-02-09] MEDS: PANTOprazole 40 MG TAB PO SCH (08:59)
[2020-02-09 09:53] LABS: Basophils # (auto) 0.03 K/uL (0-0.2); Basophils % (auto) 0.4 %; Eosinophils # (auto) 0.31 K/uL (0-0.5); Eosinophils % (auto) 3.8 %; Hematocrit (blood only) 35.3 % (37-47); Hemoglobin 11.6 g/dL (12.0-16.0); Immature Granulocytes # (auto) 0.09 K/uL (0.00-0.02); Immature Granulocytes % (auto) 1.1 %; Lymphocytes # (auto) 2.13 K/uL (1.2-3.4); Lymphocytes % (auto) 26.2 %; Mean Corpuscular Hemoglobin 32.3 pg (25-34); Mean Corpuscular Hgb Conc 32.9 g/dL (32-36); Mean Corpuscular Volume 98.3 fL (80-100); Monocytes # (auto) 0.67 K/uL (0.11-0.59); Monocytes % (auto) 8.3 %; Neutrophils # (auto) 4.89 K/uL (1.4-6.5); Neutrophils % (auto) 60.2 %; Platelet Count 174 K/uL (130-400); RDW Coefficient of Variation 15.1 % (11.5-14.5); RDW Standard Deviation 53.8 fL (36.4-46.3); Red Blood Count 3.59 M/uL (4.2-5.4); White Blood Count 8.12 K/uL (4.8-10.8)
[2020-02-09 10:03] LABS: BUN Creatinine Ratio 14.6 (10-20); Calcium 8.1 mg/dl (8.5-10.1); Creatinine Clr Calc Pharmacy 40.4 ml/min; Est GFR (Non-African American) 55.2; Magnesium 1.8 mg/dl (1.8-2.4); Potassium 3.7 mmol/L (3.5-5.1)
[2020-02-09] MEDS: cefTRIAXone SODIUM 1,000 MG in DEXTROSE 5% 50 ML IV SCH (10:46)
[2020-02-09 11:19] VITALS: TEMP 97.7; O2SAT 91
--- NOTE | 2020-02-09 11:28 | Hospitalist Progress Note ---
Date of Service February 09, 2020 Assessment & Plan (1) Encephalopathy acute: METABOLIC ENCEPHALOPATHY SECONDARY TO SEVERE SEPSIS WITH SEPTIC SHOCK, GRAM NEGATIVE BACILLI BACTEREMIA, POSSIBLE PNEUMONIA(Possible/Suspected) Gram- negative pneumonia , URINARY TRACT INFECTION Admitted with septic shock and required intravenous pressor residents Required ICU admission with intubation Blood cultures have been developing Proteus in the repeat cultures have been negative Urine cultures remains negative, sputum cultures normal jamir and MRSA has been negative COVID-19 test is negative Received intravenous Zosyn and has been changed to ceftriaxone Intravenous ceftriaxone will be stopped today following a total of 7 days therapy as per the soft boarder She has been feeling a lot better Remains generally weak but denies any other significant symptoms She will be discharged to rehab facility this afternoon Has had some diarrhea this morning Normal frequency of bowel move Stool has been sent for C. difficile and that has been negative (2) Gram negative sepsis: (3) Septic shock due to urinary tract infection: As above (4) Acute hypoxemic respiratory failure: Was admitted to ICU and required intubation Requiring intravenous vasopressors to support blood pressure Appreciate soft boarder input and recommendation Status post extubation and transfer to telemetry unit for continued care Saturating well on 2 L of nasal cannula oxygen Will need to continue 2 L nasal cannula oxygen on discharge (5) ARANZA (acute kidney injury): Patient with acute kidney injury likely due to ischemic ATN in setting of sepsis No Hydronephrosis Awaiting records from recent hospitalization in [place], but hospital discharge summary did not mention acute renal failure or CKD per family Nephro consulted-input and recommendation Received IV fluid Creatinine is normalized with normal electrolytes (6) Atrial fibrillation: Rrate controlled Usually on Amiodarone, Eliquis Amiodarone level 0.4 on admission, low CHADVASC 4 but will need to re-evaluate detention anticoagulation in light of recent unresponsiveness, possible seizure disorder Has had a fall in December Her seizure is well controlled and he she will be going to rehab for short-term Discussed with the panama hat hydraulic press operator Will restart Eliquis on discharge Cardiology appointment as an outpatient Heart rate is controlled Eliquis has been restarted (7) 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 PRESENT ON ADMISSION does not appear infected daily wound care wound care consult Discussed with the family members Admission and Anticipated Discharge Date Admission Date: February 02, 2020 Subjective The patient was seen and examined in telemetry unit Today she complains to have weakness but denies any other symptoms Denies any chest pain, palpitation or any shortness of breath Denies any abdominal pain, nausea and or vomiting 02/08/2020 The patient was seen and examined in telemetry unit She is upset that she will need to go to rehab even for the short-term She did not take her breakfast due to that reason She is agreeable to go to short-term rehab after I have spoken to her 02/09/2020 The patient was seen and examined in telemetry unit She remains stable and complains to have some loose stool this morning without any abdominal pain, nausea and/or vomiting Denies any chest pain and/or palpitation Remains generally weak Review of Systems Review of Systems: All systems reviewed and are unremarkable except as noted below Neurologic: + generalized weakness; no localized weakness Physical Exam Physical Exam: Lying in bed comfortably Constitutional: well developed, well nourished, + ill appearing and + obese; no acute distress Eyes: PERRL, conjunctivae normal, anicteric sclerae ENMT: external ear and nose normal, oropharynx normal Neck: trachea midline, no thyromegaly Respiratory: no respiratory distress Auscultation: + diminished lung sounds (Minimal bibasilar crackles) Cardiovascular: Rate/Rhythm: regular rate and regular rhythm Heart Sounds: no murmur Gastrointestinal (Abdomen): Inspection/Auscultation: abdomen normal to inspection and normal bowel sounds Percussion/Palpation: abdomen soft; abdomen nontender Musculoskeletal: No acute arthritis in any joints Neurologic: moves all extremities; no focal motor deficits Psychiatric: Affect: + depressed affect Lymphatic: no cervical or axillary lymphadenopathy Results & Data Results & Data ([facility]) Vital Signs (Past 12 Hours) Vital Signs Temp Pulse Resp BP Pulse Ox 02/09/20 11:18 36.5 C 72 19 98/63 L 91 02/09/20 07:35 36.6 C 71 18 89/54 L 97 02/09/20 04:00 36.8 C 92 H 18 106/71 98 02/08/20 23:26 36.4 C L 113 H 19 107/70 98 Laboratory Results Short CBC 02/09/20 Range/Units 09:28 WBC 8.12 (4.8-10.8) K/uL Hgb 11.6 L (12.0-16.0) g/dL Hct 35.3 L (37-47) % Plt Count 174 (130-400) K/uL BMP 02/09/20 09:28 Sodium 140 Potassium 3.7 Chloride 108 H Carbon Dioxide 28 BUN 13 Creatinine 0.92 Glucose 109 H Calcium 8.1 L Medications Administered Current Inpatient Medications Amiodarone HCl (Cordarone) 200 mg PO QAM TEODORO Stop: 03/08/20 08:59 Last Admin: 02/09/20 08:59 Dose: 200 mg Documented by: Apixaban (Eliquis) 5 mg PO Q12H TEODORO Stop: 03/09/20 17:59 Last Admin: 02/09/20 06:40 Dose: 5 mg Documented by: Dextrose (Dextrose 50%) 25 - 50 ml IV UD PRN; Protocol PRN Reason: Hypoglycemia Protocol Stop: 03/03/20 13:50 Last Admin: 02/06/20 05:21 Dose: 25 ml Documented by: Glucagon (Glucagen) 1 mg SQ UD PRN; Protocol PRN Reason: Hypoglycemia Protocol Stop: 03/03/20 13:50 Glucose (Dex4 Glucose) 4 - 8 tabs PO UD PRN; Protocol PRN Reason: Hypoglycemia Protocol Stop: 03/03/20 13:50 Glucose (Glucose 40%) 15 - 30 gm PO UD PRN; Protocol PRN Reason: Hypoglycemia Protocol Stop: 03/03/20 13:50 Heparin Sodium (Beef Lung) (Heparin Sod 10 Unit/Ml Flush) 5 ml FLUSH PRN PRN PRN Reason: Flush Stop: 03/04/20 00:00 Ceftriaxone Sodium 1,000 mg/ (Dextrose) 60 mls @ 120 mls/hr IV Q24H TEODORO; Protocol Stop: 02/16/20 11:29 Last Admin: 02/09/20 10:46 Dose: 120 mls/hr Documented by: Lacosamide (Vimpat) 100 mg PO HS TEODORO Stop: 03/08/20 20:59 Last Admin: 02/08/20 21:12 Dose: 100 mg Documented by: Lacosamide (Vimpat) 50 mg PO QAM [facility] Stop: 03/09/20 08:59 Last Admin: 02/09/20 08:59 Dose: 50 mg Documented by: Miscellaneous (Carbohydrates For Hypoglycemia) 15 - 30 gm PO UD PRN PRN Reason: Hypoglycemia Protocol Stop: 03/03/20 13:50 Pantoprazole Sodium (Protonix) 40 mg PO DAILY [facility] Stop: 03/09/20 08:59 Last Admin: 02/09/20 08:59 Dose: 40 mg Documented by:
[2020-02-09 13:44] VITALS: BP 119/85; PULSE 96
--- NOTE | 2020-02-09 15:43 | Discharge Summary ---
Date of Service February 09, 2020 Admission HPI Per Admitting Provider 89 year old female with history of Atrial Flutter on Eliquis, CHF, other problems noted below presenting with unresponsiveness. History obtained from patient's family and outpatient records as patient is intubated. Patient was noted to have diarrhea, associated with some chills the past few days. She was also noted to have tongue bleeding for the past 2 days as per family. This morning she was found unresponsive at around 7 am and was brought to the ER by EMS. She was intubated at the ER, and transferred to ICU. CT head: no acute process COVID test: pending Primary Care Provider: Emiliano Pompa, DO Admission Exam Per Admitting Provider Physical Exam: General- sedated, intubated, breathing with no effort or accessory muscle use Head- atraumatic Eyes- PERRL, EOMI, anicteric ENT- oropharynx clear Neck- supple, no JVD, no adenopathy, no thyromegaly; carotids +2/2, no bruits appreciated Lungs- (+) mild crackles at the bases, no wheezing Heart- normal rate, irregularly irregular rhythm; no murmurs Abdomen- normal bowel sounds, nondistended, soft, nontender, no masses or hepatosplenomegaly Extremities- trace pretibial edema, no calf tenderness; peripheral pulses intact Back- erythema with small skin tears- sacral are Neuro- sedated, intubated Skin- warm & dry Principal Diagnosis Metabolic encephalopathy secondary to severe sepsis with septic shock, Proteus mirabilis bacteremia, acute hypoxic respiratory failure, atrial fibrillation on Eliquis, seizure disorder, ambulatory dysfunction with falls. COVID 19-Negative Discharge Exam Constitutional well developed, well nourished, + ill appearing and + obese; no acute distress Eyes PERRL, conjunctivae normal, anicteric sclerae ENMT external ear and nose normal, oropharynx normal Neck trachea midline, no thyromegaly Respiratory no respiratory distress Auscultation: + diminished lung sounds (Minimal bibasilar crackles) Cardiovascular Rate/Rhythm: regular rate and regular rhythm Heart Sounds: no murmur Gastrointestinal (Abdomen) Inspection/Auscultation: abdomen normal to inspection and normal bowel sounds Percussion/Palpation: abdomen soft; abdomen nontender Neurologic moves all extremities; no focal motor deficits Psychiatric Affect: + depressed affect Lymphatic no cervical or axillary lymphadenopathy Discharge Data Allergies Allergy/AdvReac Type Severity Reaction Status Date / Time No Known Allergies Allergy Unverified 02/02/20 09:57 Consultations 02/02/20 09:37 ED Decision to Admit Stat 02/02/20 11:52 Consult Case Management - Discharge Planning Routine Consult Tensile Tester Routine Consult Tensile Tester Routine Consult Nephrology Routine 02/02/20 16:04 Consult Health Information Management Routine 02/03/20 09:41 Consult Neurology Routine 02/06/20 10:59 Consult Infectious Diseases Routine Ordered Studies 02/02/20 08:35 CT head/brain wo con Stat 02/02/20 09:00 CT cervical spine wo con Stat 02/03/20 14:00 US renal/blad retro comp Routine 02/04/20 09:22 MR brain seizure wo con Routine Hospital Course (1) Encephalopathy acute: METABOLIC ENCEPHALOPATHY SECONDARY TO SEVERE SEPSIS WITH SEPTIC SHOCK, GRAM NEGATIVE BACILLI BACTEREMIA, POSSIBLE PNEUMONIA(Possible/Suspected) Gram- negative pneumonia , URINARY TRACT INFECTION Admitted with septic shock and required intravenous pressor residents Required ICU admission with intubation Blood cultures have been developing Proteus in the repeat cultures have been negative Urine cultures remains negative, sputum cultures normal jamir and MRSA has been negative COVID-19 test is negative Received intravenous Zosyn and has been changed to ceftriaxone Intravenous ceftriaxone will be stopped today following a total of 7 days therapy as per the jawbone breaker She has been feeling a lot better Remains generally weak but denies any other significant symptoms She will be discharged to rehab facility this afternoon Has had some diarrhea this morning Normal frequency of bowel move Stool has been sent for C. difficile and that has been negative (2) Gram negative sepsis: (3) Septic shock due to urinary tract infection: As above (4) Acute hypoxemic respiratory failure: Was admitted to ICU and required intubation Requiring intravenous vasopressors to support blood pressure Appreciate jawbone breaker input and recommendation Status post extubation and transfer to telemetry unit for continued care Saturating well on 2 L of nasal cannula oxygen Will need to continue 2 L nasal cannula oxygen on discharge (5) ARANZA (acute kidney injury): Patient with acute kidney injury likely due to ischemic ATN in setting of sepsis No Hydronephrosis Awaiting records from recent hospitalization in [place], but hospital discharge summary did not mention acute renal failure or CKD per family Nephro consulted-input and recommendation Received IV fluid Creatinine is normalized with normal electrolytes (6) Atrial fibrillation: Rrate controlled Usually on Amiodarone, Eliquis Amiodarone level 0.4 on admission, low CHADVASC 4 but will need to re-evaluate terminal computer operator anticoagulation in light of recent unresponsiveness, possible seizure disorder Has had a fall in December Her seizure is well controlled and he she will be going to rehab for short-term Discussed with the process analyst Will restart Eliquis on discharge Cardiology appointment as an outpatient Heart rate is controlled Eliquis has been restarted (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 PRESENT ON ADMISSION does not appear infected daily wound care wound care consult Discussed with the family members Total Time Total Time Spent Total Time Spent (In Minutes): 40 minutes Total Time Includes: Examination of the Patient, Discharge Planning, Medication Reconciliation and Communication With Other Providers Discharge Plan Discharge Items Patient Disposition: Transfer Care Home Fac Reason For Visit: Unresponsive Discharge Diagnosis: Metabolic encephalopathy secondary to severe sepsis with septic shock, Proteus mirabilis bacteremia, acute hypoxic respiratory failure, atrial fibrillation on Eliquis, seizure disorder, ambulatory dysfunction with falls. COVID 19-Negative Condition on Discharge: Fair Activity: Resume your previous activity Non-emergency contact: Primary Care Provider Call non-emergency contact if: you have any medication questions Follow-up/Referrals: Alex Nielsen MD [Physician] - (Please make an appointment with Dr. Dickson in about 2 to 3 weeks.) Emiliano Pompa DO [Primary Care Provider] - (Please make an appointment with your process analyst within 2 to 3 weeks. Please make an appointment with your primary care provider within 7 days following discharge from the facility.) Diet: Regular Diet Comment: Minced and moist Addtl Attending Provider Instructions: Please take precaution to avoid fall Pending Studies at Discharge: No Stand-Alone Forms: My [facility] Skilled Items Patient informed of condition?: Yes DNR: Yes Discharge Level of Care: Skilled Communicable Disease: No Discharge Prognosis: Stable Lines: None Urinary Catheter: Yes Medications and DC Order Prescriptions: New pantoprazole 40 mg Tablet,Delayed Release (Dr/Ec) 40 mg PO DAILY 30 Days Qty: 30 RF: 0 Vimpat 50 mg Tablet 50 mg PO QAM 30 Days Qty: 30 RF: 0 Vimpat 50 mg Tablet 100 mg PO HS 30 Days Qty: 60 RF: 0 Continued amiodarone [Pacerone] 200 mg Tablet 200 mg PO QAM RF: 0 aspirin [Aspirin Low Dose] 81 mg Tablet,Delayed Release (Dr/Ec) 81 mg PO QAM RF: 0 gabapentin 300 mg Capsule 300 mg PO TID RF: 0 hydrochlorothiazide 25 mg Tablet 25 mg PO QAM RF: 0 Centrum Silver 0.4-300-250 mg-mcg-mcg Tablet 1 tab PO QAM RF: 0 Eliquis 5 mg Tablet 5 mg PO BID RF: 0 Stool Softener 4 cap PO QPM RF: 0 Discharge Orders: Discharge Order (Routine); Ordered 02/09/20 Ordered By: Regan Peng Admission Data Admit Date/Time: 02/02/20 09:41 Attending Provider: Regan Peng Admit Provider: Doyle Jones Primary Care Provider: Emiliano Pompa Other Providers: eSrgio Trejo ; Doyle Jones ; Rojas Sahni ; Alex Nielsen ; Frank Rico ; Rachel Small ; Oksana Kruger ; Kris Pimentel Jennifer ; Urszula Cedeno [place] Other Interventions: Discharge Summary Assessment (RN) Last Done: 02/09/20 13:41 DC Date/Time DO NOT enter until pt leaves facility: 02/09/20 14:58
== END 2020-02-09 14:58 | DRG 871 ==
LOC: ED 08:30 → 1E 09:41 → SUATTDRO 09:41 → 1E 10:55 → 2S 02-07 08:52